=== PATIENT | female | born 1955 | race Caucasian/White ===

== ENCOUNTER → 2019-06-18 15:52 | Outpatient (BNVA) | payer MEDICARE, OTHER, SELFPAY | PROVIDERS: Family Provider Family Medicine; PCP Family Medicine; Visit Provider Family Medicine | DX: E11.9 Type 2 diabetes mellitus without complications (principal); Z79.4 Long term (current) use of insulin; I10 Essential (primary) hypertension; K21.9 Gastro-esophageal reflux disease without esophagitis | CPT/HCPCS: 80053; 80061; 83036; 85025 ==

== ENCOUNTER 2019-09-06 15:30 | Outpatient (CLI) | payer MEDICARE, OTHER, SELFPAY ==
--- NOTE | 2019-09-06 15:48 | XR_ITS ---
WS: [id number] SHOULDER LEFT TECHNIQUE: 3 views of the left shoulder CLINICAL INFORMATION: left shoulder pain. COMPARISON: None. FINDINGS: Normal acromioclavicular joint. Normal glenohumeral joint. Acromion is normal in appearance. Normal g lenoid. No evidence of acute fracture dislocation. Small loose body or rotator cuff calcification measuring 4.2 mm XR/XR shoulder LT min 2V* [id number] IMPRESSION: No acute left shoulder findings.
--- NOTE | 2019-09-06 15:48 | XR_ITS ---
WS: [id number] ELBOW LEFT TECHNIQUE: 3 views of the left elbow CLINICAL INFORMATION: left elbow pain COMPARISON: None. FINDINGS: Diffuse soft tissue edema. Normal anterior fat pad. Prominent diffuse edema overlying the olecranon s uspicious for olecranon bursitis. Recommend correlation for dorsal elbow pain. Radial head and neck a ppear normal. Moderate degenerative arthritis at the olecranon fossa. XR/XR elbow LT min 3V* [id number] IMPRESSION: 1. Diffuse soft tissue edema with more focal edema over the olecranon suspicio us for olecranon bursitis. Recommend correlation with dorsal elbow pain. 2. Degenerative arthritis of the left elbow. No acute fractures.
== END 2019-09-06 15:31 | disposition home or self-care (01) ==
LOC: RAD 15:36
PROVIDERS: Family Provider Family Medicine; PCP Family Medicine; Visit Provider Family Medicine
DX: M25.512 Pain in left shoulder (principal); R60.9 Edema, unspecified; M19.022 Primary osteoarthritis, left elbow
CPT/HCPCS: 73030; 73080

== ENCOUNTER 2019-10-01 10:47 | Outpatient (CLI) | payer MEDICARE, OTHER, SELFPAY ==
--- NOTE | 2019-10-01 11:08 | MR_ITS ---
WS: [id number] MRI LEFT SHOULDER HISTORY: pain COMPARISON: Shoulder radiograph 09/06/2019 TECHNIQUE: Multiplanar sequences of the shoulder joint are submitted. Moderate AC joint hypertrophy. There is mild encroachment upon the supraspinatus muscle and tendon. S mall osteophytes encroach upon the surface of the supraspinatus muscle anteriorly. Minimal curvature of the acromion. Small amount of subacromial and subdeltoid bursal fluid distention. Small loose body in the subdeltoid bursa. High-grade tear involving the distal subscapularis tendon at the insertion site. There is slight retr action of the tendon. There is additional increased signal consistent with tendinopathy in the distal tendon. There is a large amount of fluid in the subscapularis recess. No edema or atrophy of the mus mena. No definite tear involving the supraspinatus tendon. There is mild tendinopathy. There is cystic fluid extending along the distal infraspinatus tendon. Fluid extends from the distal infraspinatus tendon superiorly through the junction between the supraspinatus and infraspinatus tend ons. This is most likely an interstitial tear with communication to the bursa. Increase fluid in the biceps tendon sheath. Abnormal signal in the anterior and posterior labrum. Paralabral cyst adjacent to the posterior labru m. Surface irregularity along the glenoid with subchondral cystic changes. Mild narrowing of the ratna ohumeral joint. Small loose bodies in the fluid surrounding the subscapularis tendon and in the subsc apularis recess. MR/MR shoulder LT wo con* [id number] IMPRESSION: 1. Complete tear distal subscapularis tendon with mild retraction and tendinop athy. 2. Interstitial tear distal infraspinatus tendon with fluid extension into the subacromial/subdeltoid bursa. 3. Blunted, abnormal anterior and posterior labrum with a small para labral cy st associated with the posterior labrum. 4. Increase fluid around the biceps tendon sheath. 5. Small loose bodies in the joint effusion. 6. Mild AC joint hypertrophy with encroachment upon the supraspinatus muscle.
== END 2019-10-01 10:48 | disposition home or self-care (01) ==
LOC: RADWPI 10:56
PROVIDERS: Family Provider Family Medicine; PCP Family Medicine; Visit Provider Specialist
DX: S46.812A Strain of other muscles, fascia and tendons at shoulder and upper arm level, left arm, initial encounter (principal); X58.XXXA Exposure to other specified factors, initial encounter; M25.412 Effusion, left shoulder
CPT/HCPCS: 73221

== ENCOUNTER 2019-10-14 06:00 | Outpatient (RCR) | payer MEDICARE, OTHER, SELFPAY | END 2019-11-12 23:59 | disposition home or self-care (01) | LOC: SPT 06:00 | PROVIDERS: PCP Family Medicine; Referring Provider Specialist; Visit Provider Specialist | DX: M75.102 Unspecified rotator cuff tear or rupture of left shoulder, not specified as traumatic (principal) | CPT/HCPCS: 97110; 97162 ==

== ENCOUNTER → 2019-10-29 15:17 | Outpatient (BNVA) | payer MEDICARE, OTHER, SELFPAY | PROVIDERS: Family Provider Family Medicine; PCP Family Medicine; Visit Provider Family Medicine | DX: E11.9 Type 2 diabetes mellitus without complications (principal) | CPT/HCPCS: 80053; 83036 ==

== ENCOUNTER 2019-11-14 06:00 | Outpatient (RCR) | payer MEDICARE, OTHER, SELFPAY | END 2019-12-10 15:25 | disposition home or self-care (01) | LOC: SPT 06:00 | PROVIDERS: PCP Family Medicine; Referring Provider Specialist; Visit Provider Specialist | DX: M75.102 Unspecified rotator cuff tear or rupture of left shoulder, not specified as traumatic (principal) | CPT/HCPCS: 97110; G0283 ==

== ENCOUNTER 2019-11-29 01:01 | Emergency (ER) | payer MEDICARE, OTHER, SELFPAY ==
--- NOTE | 2019-11-29 01:22 | ECG_ITS ---
[facility] Test Date: 2019-11-29 Pat Name: Ángela Forrester Department: Room: Gender: Female Clinical Specialist Medical Device: Terrance : 1955 Requested By: Robert Moy Order Number: [id number] Cathryn MD: Antonio Meza M.D. Measurements Intervals [place] Rate: 73 P: 60 CA: 179 QRS: -14 QRSD: 89 T: 48 QT: 423 QTc: 467 Interpretive Statements SINUS RHYTHM LOW QRS VOLTAGE IN PRECORDIAL LEADS [QRS DEFLECTION < 1.0 mV IN CHEST LEADS] Compared to ECG 03/14/2019 21:09:38 Left-axis deviation no longer present T-wave abnormality no longer present Electronically Signed On 11-29-2019 23:32:39 CDT by Antonio Meza M.D. [email or web address]
[2019-11-29 01:30] VITALS: PULSE 76; RESP 20; TEMP 36.4; O2SAT 99
--- NOTE | 2019-11-29 02:04 | W.ED.NAVMDI ---
HPI - Nausea/Vomiting/Diarrhea General: Chief complaint: Nausea/Vomiting/Diarrhea Stated complaint: n/v/d Time Seen by Provider: 11/29/19 02:03 Source: patient Mode of arrival: ambulatory Limitations: no limitations History of Present Illness: HPI Narrative: Tessa is a nice 64-year-old female who comes in complaining of intractable nausea vomiting and diarrhea. Patient states her symptoms began earlier today and she is vomited numerous times. She denies any abdominal pain except for when retching and vomiting. She denies any chest pain or shortness of breath and she denies any fevers or chills. She has no cough or sore throat. Patient states that her symptoms are getting worse as the day goes on but denies any other complaints concerns Associated nausea: No Associated symtoms: Reports chest pain; Denies change in vision, diaphoresis, dizziness, dysuria, fatigue, headache(s), malaise, nausea, palpitations or syncope Review of Systems Const: Denies: fever(s), chills, body aches, fatigue, malaise or diaphoresis Eyes: Denies: change in vision, blurry vision, blind spots, photophobia, eye discharge or eye redness ENMT: Denies: throat pain, odynophagia, hoarseness, swelling of lips/tongue, oral sores, ear or mastoid pain, ear discharge, change in hearing or nasal discharge Card: Reports: chest pain; Denies: palpitations, irregular heart rhythm, edema, lightheadedness, syncope, pre-syncope, dyspnea on exertion or orthopnea Resp: Reports: dyspnea; Denies: productive cough, non-productive cough, wheezing, hemoptysis or chest congestion GI: Denies: abdominal pain, nausea, vomiting, hematemesis, coffee ground emesis, heartburn, diarrhea, constipation, GI cramping, hematochezia or melena : Denies: flank pain, dysuria, urinary frequency, urinary urgency or hematuria Musc: Denies: neck pain, back pain, extremity pain, extremity swelling, joint pain, joint swelling, joint redness, joint warmth or joint stiffness Skin/Breast: Denies: rash, pruritus, erythema, skin tenderness or jaundice Neuro: Denies: headache(s), numbness in extremities, weakness in extremities, sensory changes, lack of coordination, difficulty walking, dizziness, vertigo, confusion, Slurred speech present or seizure-like activity Deep/Lymph: Denies: easy bruising, easy bleeding, petechiae, purpura or enlarged lymph nodes All/Imm: Denies: urticaria, throat swelling, tongue swelling, facial swelling or acute wheezing PFSH ED PFSH: Medical History Chest pain Depression Essential hypertension GERD (gastroesophageal reflux disease) Hyperlipidemia Type 2 diabetes mellitus, without long-term current use of insulin Surgical History H/O: hysterectomy S/P appendectomy S/p bilateral carpal tunnel release S/P breast augmentation S/P cholecystectomy S/P discectomy Status post total knee replacement, left Family History Other CAD (coronary artery disease) Cancer Diabetes Stroke Social History Smoking and tobacco status: never smoked Alcohol intake: current Alcohol intake frequency: holidays/special occasions only Lives independently: No Household members: spouse Marital status: Physical Exam Const: COMMON NORMALS: no acute distress, patient oriented x3, no limitations, healthy appearing and well nourished GENERAL APPEARANCE: cooperative, well kempt and well developed HENMT: COMMON NORMALS: normocephalic, atraumatic, external ears normal, EAC's normal and Normal external nose present HEAD & SCALP: normal to inspection, normocephalic and atraumatic FACE & SINUS: normal facial exam and face symmetric NOSE: Normal external nose present and Normal nares present EXTERNAL EAR: Yes external ears normal EXTERNAL AUDITORY CANAL: EAC's normal MOUTH: Normal oral and palatal mucosa present, lip normal and tongue normal Eye: COMMON NORMALS: Equal, round and reactive pupils present and conjunctivae normal GENERAL EYE: appearance normal, both eyes and all related structures ALIGNMENT: Yes alignment normal PERIORBITAL: periorbital findings normal EYELID: eyelids normal CONJUNCTIVA: Yes conjunctivae normal SCLERA: sclerae normal PUPIL: Yes Equal, round and reactive pupils present Neck/C-Spine: COMMON NORMALS: full ROM, no lymphadenopathy, supple, no meningeal signs and no JVD GENERAL: Yes normal visual inspection and Yes trachea midline Chest: COMMONS NORMALS: normal inspection of the chest and normal palpation of entire chest wall Resp: COMMON NORMALS: normal respiratory effort, No retractions and No use of accessory muscles EFFORT & INSPECTION: Yes able to speak in complete sentences and Yes symmetric chest movement AUSCULTATION: no crackles, no rales, no rhonchi and no wheezes Cardio: COMMON NORMALS: no JVD, regular rate, regular rhythm, S1 normal heart sound present and S2 normal heart sound present RATE: regular rate RHYTHM: regular rhythm HEART SOUNDS: S1 normal heart sound present, S2 normal heart sound present, no click, no gallops, no murmurs, no rubs and abnormal split S2 GI: COMMON NORMALS: Soft to palpation and No hepatosplenomegaly present PALPATION: Yes Soft to palpation, No Tenderness to palpation present (GI), No Guarding due to palpation present (GI), No Rigid due to palpation, Yes No hepatosplenomegaly present, No Hernia present, No Palpable mass present and No Pulsatile mass present : COMMON NORMALS: Yes no CVA tenderness BLADDER/KIDNEY EXAM: Yes no CVA tenderness EXTERNAL FEMALE EXAM: No Hernia present Back/Pelvis: COMMON NORMALS: no CVA tenderness, thoracic and lumbar spine normal to inspection, no thoracic nor lumbar tenderness and thoraco-lumbar ROM normal Extremity: COMMON NORMALS: normal to inspection, full ROM, capillary refill normal, no joint enlargement, no clubbing, cyanosis or edema and no calf tenderness Neuro: COMMON NORMALS: patient oriented x3, CN's II-XII intact bilaterally, moves all extremities, no focal motor deficits and no sensory deficits noted MENINGEAL SIGNS: Yes no meningeal signs SPEECH: speech normal Psych: COMMON NORMALS: mental status grossly normal, Normal thought process present, cooperative, normal affect, speech normal and activity/motor behavior normal APPEARANCE: Yes well kempt SPEECH: Yes normal speech THOUGHT PROCESS: Normal thought process present Skin: COMMON NORMALS: no rashes or lesions noted, turgor normal, no jaundice, no petechiae and no mottling GENERAL SKIN EXAM: no rashes or lesions noted and turgor normal Course Vital Signs: Vital signs: Vital Signs Temperature 97.6 F 11/29/19 01:30 Pulse Rate 72 11/29/19 03:58 Respiratory Rate 20 H 11/29/19 03:58 Blood Pressure 163/93 11/29/19 03:58 Pulse Oximetry 99 11/29/19 03:58 MDM - Nausea/Vomiting/Diarrhea MDM Narrative: Medical decision making narrative: Patient is feeling better and is ready to go home. She still has no abdominal pain and her nausea has resolved. She would like a dose of something myalgias before she goes to prevent any nausea from returning. She has no fevers or chills, no headache or any other complaints. Good discharge her home per her request she does agree to return should her symptoms change or worsen. Lab Data: Attestation: I reviewed the patient's lab results. Labs: Lab Results 11/29/19 11/29/19 11/29/19 Range/Units 02:37 02:37 02:37 WBC 11.4 H (4.0-10.0) 10^3/ uL RBC 4.34 (4.1-5.3) 10^6/u L Hgb 13.3 (11.5-15.3) g/dL Hct 40.6 (37.0-47.0) % MCV 93.5 (81-99) fL MCH 30.6 (28.0-34.0) pg MCHC 32.8 (30.0-36.0) g/dL RDW 13.8 (12.1-15.1) % Plt Count 362 (130-400) 10^3/c mm MPV 9.6 (7.4-10.4) fL Neut % (Auto) 77.2 % Lymph % (Auto) 16.3 % Dickenson % (Auto) 4.9 % Eos % (Auto) 0.7 % Baso % (Auto) 0.5 % Neut # (Auto) 8.75 H (1.8-7.7) 10^3/u L Lymph # (Auto) 1.9 (0.8-4.8) 10^3/u L Dickenson # (Auto) 0.6 (0.2-0.9) 10^3/u L Eos # (Auto) 0.1 (0.0-0.8) 10^3/u L Baso # (Auto) 0.1 (0.0-0.1) 10^3/u L Nucleated RBC % (a uto) 0 % Nucleated RBCs # 0.0 /100WBC Sodium 137 (136-145) mmol/L Potassium 3.9 (3.5-5.1) mmol/L Chloride 96 L (98-107) mmol/L Carbon Dioxide 26 (22-29) mmol/L Anion Gap 18.9 (5-19) BUN 15 (8-23) mg/dL Creatinine 0.8 (0.5-0.9) mg/dL GFR Calculation 71.8 L (90-130) mL/min Glucose 178 H (65-115) mg/dL Calculated Osmolal ity 285 (285-295) mOsm/k g Calcium 9.8 (8.5-10.5) mg/dL Total Bilirubin 0.4 (0.15-1.2) mg/dL AST 15 (0-32) U/L ALT 25 (0-33) U/L Alkaline Phosphata se 87 (35-105) IU/L Troponin T Baselin e 6 (0-10) ng/L Troponin T 120 Min tolowa dee-ni' (0-10) ng/L Delta Troponin T (0-10) ABS# Total Protein 7.5 (6.6-8.7) g/dL Albumin 4.6 (3.5-5.2) g/dL Globulin 2.9 (1.3-4.6) g/dL Lipase 19 (13-60) U/L /17/20 Range/Units 03:45 WBC (4.0-10.0) 10^3/ uL RBC (4.1-5.3) 10^6/u L Hgb (11.5-15.3) g/dL Hct (37.0-47.0) % MCV (81-99) fL MCH (28.0-34.0) pg MCHC (30.0-36.0) g/dL RDW (12.1-15.1) % Plt Count (130-400) 10^3/c mm MPV (7.4-10.4) fL Neut % (Auto) % Lymph % (Auto) % Dickenson % (Auto) % Eos % (Auto) % Baso % (Auto) % Neut # (Auto) (1.8-7.7) 10^3/u L Lymph # (Auto) (0.8-4.8) 10^3/u L Dickenson # (Auto) (0.2-0.9) 10^3/u L Eos # (Auto) (0.0-0.8) 10^3/u L Baso # (Auto) (0.0-0.1) 10^3/u L Nucleated RBC % (a uto) % Nucleated RBCs # /100WBC Sodium (136-145) mmol/L Potassium (3.5-5.1) mmol/L Chloride (98-107) mmol/L Carbon Dioxide (22-29) mmol/L Anion Gap (5-19) BUN (8-23) mg/dL Creatinine (0.5-0.9) mg/dL GFR Calculation (90-130) mL/min Glucose (65-115) mg/dL Calculated Osmolal ity (285-295) mOsm/k g Calcium (8.5-10.5) mg/dL Total Bilirubin (0.15-1.2) mg/dL AST (0-32) U/L ALT (0-33) U/L Alkaline Phosphata se (35-105) IU/L Troponin T Baselin e (0-10) ng/L Troponin T 120 Min tolowa dee-ni' 6.00 (0-10) ng/L Delta Troponin T 0 (0-10) ABS# Total Protein (6.6-8.7) g/dL Albumin (3.5-5.2) g/dL Globulin (1.3-4.6) g/dL Lipase (13-60) U/L EKG Data^: EKG 1: Attestation: I personally reviewed and interpreted this EKG as follows: EKG interpretation date: 11/29/19 EKG interpretation time: 03:47 Interpretation: Normal sinus rhythm at 73 beats a minute, no acute ST-T wave changes. Discharge Plan Discharge Patient Disposition: Home, Self-Care Clinical Impression: Nausea and vomiting Qualifiers: Vomiting type: unspecified Vomiting Intractability: non-intractable Qualified Code(s): R11.2 - Nausea with vomiting, unspecified Condition: Stable Prescriptions: New Zofran 4 mg tablet 4 mg PO Q6H PRN (Reason: nausea and vomiting) Qty: 20 RF: 0 No Action glyburide 5 mg tablet 5 mg PO DAILY Qty: 90 RF: 0 pantoprazole [Protonix] 40 mg tablet,delayed release (DR/EC) 40 mg PO DAILY Qty: 90 RF: 1 nitroglycerin [Nitrostat] 0.4 mg tablet, sublingual 0.4 mg SUBLINGUAL Q5M PRNRF: 0 dicyclomine 10 mg capsule 10 mg PO .Q6 HOURS PRN (Reason: CRAMPING) RF: 0 levocetirizine [Xyzal] 5 mg tablet 5 mg PO QDAY RF: 0 losartan 50 mg tablet 50 mg PO BID Qty: 60 RF: 1 folic acid 1 mg tablet 1 mg PO ONCE Qty: 90 RF: 0 estradiol 2 mg tablet 2 mg PO ONCE Qty: 30 RF: 0 venlafaxine [Effexor XR] 75 mg capsule,extended release 24hr 75 mg PO QAM Qty: 90 RF: 0 venlafaxine [Effexor XR] 150 mg capsule,extended release 24hr 150 mg PO QAM Qty: 90 RF: 0 amlodipine 5 mg tablet 5 mg PO DAILY Qty: 90 RF: 0 atorvastatin 40 mg tablet 40 mg PO ONCE Qty: 90 RF: 0 chlorthalidone 25 mg tablet 12.5 mg PO QDAY Qty: 45 RF: 0 Discharge Orders: Discharge Order (Routine); Ordered 11/29/19 Ordered By: Joan Maguire Referrals: Jelly Patel DO [Primary Care Provider] - 1-3 days Discharge Diet: Advance as tolerated and Clear Liquid Discharge Activity: Increase activity as tolerated Patient Instructions: Acute Nausea and Vomiting (ED), Abdominal Pain (ED) Activity Restrictions/Additional Instructions: Please return to the ER immediately for any of the signs or symptoms listed on your discharge instruction sheets, worsening/changing of your symptoms, you are not getting better as quickly as expected, or for ANY other cause or concerns. Coding Level of Care Code ED Log Buncher for Chg Fwd Exam Comprehensive
[2019-11-29] MEDS: sodium chloride 0.9% 1,000 ML 999 ML IV (02:46)
[2019-11-29] MEDS: ondansetron 2 mg/ML SDV 2 mL 8 MG IVP (02:46)
[2019-11-29 03:04] LABS: Basophils # 0.1 10^3/uL (0.0-0.1); Basophils % 0.5 %; Eosinophils # 0.1 10^3/uL (0.0-0.8); Eosinophils % 0.7 %; Hematocrit 40.6 % (37.0-47.0); Hemoglobin 13.3 g/dL (11.5-15.3); Lymphocytes # 1.9 10^3/uL (0.8-4.8); Lymphocytes % 16.3 %; Mean Corpuscular HGB Conc 32.8 g/dL (30.0-36.0); Mean Corpuscular Hemoglobin 30.6 pg (28.0-34.0); Mean Corpuscular Volume 93.5 fL (81-99); Mean Platelet Volume 9.6 fL (7.4-10.4); Monocytes # 0.6 10^3/uL (0.2-0.9); Monocytes % 4.9 %; Neutrophils # 8.75 10^3/uL (1.8-7.7); Neutrophils % 77.2 %; Nucleated Red Blood Cells % 0 %; Platelet Count 362 10^3/cmm (130-400); Red Blood Count 4.34 10^6/uL (4.1-5.3); Red Cell Distribution Width 13.8 % (12.1-15.1); White Blood Count 11.4 10^3/uL (4.0-10.0)
[2019-11-29 03:18] LABS: Alanine Aminotransferase 25 U/L (0-33); Albumin Level 4.6 g/dL (3.5-5.2); Alkaline Phosphatase 87 IU/L (35-105); Anion Gap 18.9 (5-19); Aspartate Amino Transferase 15 U/L (0-32); Blood Urea Nitrogen 15 mg/dL (8-23); Calcium 9.8 mg/dL (8.5-10.5); Carbon Dioxide 26 mmol/L (22-29); Chloride 96 mmol/L (98-107); Globulin 2.9 g/dL (1.3-4.6); Glomerular Filtration Rate 71.8 mL/min (90-130); Glucose 178 mg/dL (65-115); Lipase 19 U/L (13-60); Osmolality Calculated 285 mOsm/kg (285-295); Potassium 3.9 mmol/L (3.5-5.1); Sodium 137 mmol/L (136-145); Total Bilirubin 0.4 mg/dL (0.15-1.2); Total Protein 7.5 g/dL (6.6-8.7)
[2019-11-29 03:20] LABS: Troponin(5th) Baseline 6 ng/L (0-10)
[2019-11-29 03:58] VITALS: BP 163/93; PULSE 72; RESP 20; O2SAT 99
[2019-11-29 04:06] LABS: Troponin 5 2HR Delta 0 ABS# (0-10)
[2019-11-29 04:51] VITALS: BP 162/97; O2SAT 95
[2019-11-29] MEDS: metoclopramide 5 mg/mL SDV 2 mL 10 MG IVP (04:55)
[2019-11-29 05:10] LABS: Add Urine Microscopic? YES; Bilirubin Urine Neg (NEGATIVE); Blood Urine Neg (Negative); Glucose Urine UA Norm (Normal); Ketones Urine 1+ (Negative); Leukocyte Esterase Urine Negative (Negative); Nitrate Urine Negative (Negative); Protein Urine Neg (Negative); Sulfosalicylic Acid Urine Negative (Negative); Urine Appearance Cloudy (CLEAR); Urine Color Yellow (Yellow); Urobilinogen Urine Norm (Negative); pH Urine 8 (5-7)
[2019-11-29 05:11] LABS: Amorphous Sediment Urine 1+; Bacteria Urine 1+; Squamous Epithelial Cell Urine RARE (0-5)
== END 2019-11-29 05:13 | disposition home or self-care (01) ==
PROVIDERS: Nurse Practitioner Family; Emergency Provider Emergency Medicine; PCP Family Medicine
DX: R11.2 Nausea with vomiting, unspecified (principal); I10 Essential (primary) hypertension; E78.5 Hyperlipidemia, unspecified; E11.9 Type 2 diabetes mellitus without complications
CPT/HCPCS: 12345; 80053; 81001; 81003; 83690; 84484; 85025; 93005; 96361; 96374; 96375; 99283; J2405; J2765; J7030

== ENCOUNTER 2020-01-09 09:41 | Emergency (ER) | payer MEDICARE, OTHER, SELFPAY ==
[2020-01-09 09:50] VITALS: PULSE 100; RESP 20; TEMP 36.7; O2SAT 95; BMI 37.5
--- NOTE | 2020-01-09 10:03 | CT_ITS ---
WS: [id number] CT ABDOMEN PELVIS TECHNIQUE: Contrast-enhanced CT of the abdomen and pelvis with coronal and sagittal reformatted image s. CLINICAL INFORMATION: left sided abd pain COMPARISON: None. DLP: 1561.[address] scans at [facility] use at least one of these dose optimization techniques: automat ed exposure control; mA and/or kV adjustment per patient size (includes targeted exams where dose is matched to clinical indication); or iterative reconstruction. FINDINGS: Mild diffuse fatty infiltration of the liver. Cholecystectomy clips. Small cyst dome of the liver candi suring 12 mm. 2 tiny partially visualized noncalcified pulmonary nodules right middle lobe measuring 5 mm. Normal GE junction. Spleen is normal. Mild fatty atrophy of the pancreas. Adrenal glands are no rmal. Mild bilateral renal cortical atrophy. Normal renal parenchymal enhancement. No hydronephrosis. Sigmoid diverticulosis. Normal caliber abdominal aorta. No evidence of small or large bowel obstructi on. Endplate degenerative changes at L2-3. Postoperative changes both breasts. Mild diffuse transmural edema involving the descending left colon consistent with acute diverticuliti s or short segment colitis. A few diverticuli in this location. Mild thickening of the sigmoid colon. No periaortic lymphadenopathy. No inguinal lymphadenopathy. CT/CT abdomen pelvis w con* [id number] IMPRESSION: 1. Mild diffuse thickening involving the descending left colon in the left low er quadrant with inflammatory stranding and edema consistent with acute diverti culitis or short segment colitis. Mild thickening of the sigmoid colon. 2. No evidence of drainable abscess or fluid collection. 3. Prior cholecystectomy. 4. Mild diffuse fatty infiltration of the liver. 5. 2 tiny partially visualized noncalcified pulmonary nodules right middle lob e measuring 5 mm. This can be followed up with chest CT Notified Ana Lilia Mauro MD at 01/09/2020 11:17 AM.
[2020-01-09 10:09] VITALS: O2SAT 94
--- NOTE | 2020-01-09 10:19 | PC.NURSE ---
pt to CT by stretcher with tech
[2020-01-09 10:23] LABS: Basophils # 0.1 10^3/uL (0.0-0.1); Basophils % 0.6 %; Eosinophils # 0.3 10^3/uL (0.0-0.8); Eosinophils % 2.6 %; Hematocrit 37.5 % (37.0-47.0); Hemoglobin 12.3 g/dL (11.5-15.3); Lymphocytes # 1.7 10^3/uL (0.8-4.8); Lymphocytes % 14.4 %; Mean Corpuscular HGB Conc 32.8 g/dL (30.0-36.0); Mean Corpuscular Hemoglobin 30.5 pg (28.0-34.0); Mean Corpuscular Volume 93.1 fL (81-99); Mean Platelet Volume 9.4 fL (7.4-10.4); Monocytes # 0.6 10^3/uL (0.2-0.9); Monocytes % 5.4 %; Neutrophils # 9.13 10^3/uL (1.8-7.7); Neutrophils % 76.6 %; Nucleated Red Blood Cells % 0 %; Platelet Count 310 10^3/cmm (130-400); Red Blood Count 4.03 10^6/uL (4.1-5.3); Red Cell Distribution Width 13.4 % (12.1-15.1); White Blood Count 11.9 10^3/uL (4.0-10.0)
[2020-01-09] MEDS: iohexol 300 mg/mL 100 mL Btl IV (10:34)
[2020-01-09 10:40] LABS: Alanine Aminotransferase 17 U/L (0-33); Albumin Level 4.1 g/dL (3.5-5.2); Alkaline Phosphatase 87 IU/L (35-105); Anion Gap 13.3 (5-19); Aspartate Amino Transferase 11 U/L (0-32); Blood Urea Nitrogen 13 mg/dL (8-23); Calcium 8.5 mg/dL (8.5-10.5); Carbon Dioxide 28 mmol/L (22-29); Chloride 98 mmol/L (98-107); Globulin 3.1 g/dL (1.3-4.6); Glomerular Filtration Rate 71.8 mL/min (90-130); Glucose 203 mg/dL (65-115); Lipase 21 U/L (13-60); Osmolality Calculated 284 mOsm/kg (285-295); Potassium 3.3 mmol/L (3.5-5.1); Sodium 136 mmol/L (136-145); Total Bilirubin 0.5 mg/dL (0.15-1.2); Total Protein 7.2 g/dL (6.6-8.7)
[2020-01-09 10:41] LABS: Lactic Sepsis W/Reflex 2.1 mmol/L (0.5-2.2)
[2020-01-09] MEDS: ondansetron 2 mg/ML SDV 2 mL 4 MG IVP (10:42)
[2020-01-09] MEDS: morphine 4 mg/mL SDV 1 mL IVP (10:42)
[2020-01-09 10:45] VITALS: BP 141/91; PULSE 86; O2SAT 97
[2020-01-09 11:11] LABS: Add Urine Microscopic? NO
--- NOTE | 2020-01-09 11:15 | W.ED.ABDPA2 ---
HPI - Abdominal Pain General: Chief Complaint: Abdominal Pain Stated Complaint: L SIDE PAIN Time Seen by Provider: 01/09/20 09:58 History of Present Illness: HPI narrative: This patient is a 64-year-old female presenting with left-sided abdominal pain. This pain started yesterday and has been progressing through the night. She said it started in the lower part of the left abdomen and seem to have migrated up. She is not having nausea or vomiting. She did not eat breakfast this morning. She has had normal bowel movements in the last few days. No urinary symptoms. No fevers or chills. She has never had anything like this before. She has had multiple surgeries including her gallbladder, appendix, hysterectomy. MD elicited complaint: abdominal pain Pertinent past history: none Pain Consistency: constant Location: LUQ and LLQ Migration to: LUQ Associated Symptoms: Denies chills, fever(s), nausea and vomiting Review of Systems General: Reports: 10 or more systems reviewed and unremarkable except in HPI and below Const: Denies: fever(s), chills, fatigue or malaise Eyes: Denies: change in vision ENMT: Denies: odynophagia Card: Denies: chest pain or swelling of feet/ankles Resp: Denies: dyspnea, productive cough or non-productive cough GI: Reports: abdominal pain; Denies: nausea or vomiting : Denies: flank pain or difficulty voiding Musc: Denies: neck pain or back pain Skin/Breast: Denies: rash Neuro: Denies: headache(s), numbness in extremities or weakness in extremities Deep/Lymph: Denies: easy bruising or easy bleeding PFSH ED PFSH: Medical History Chest pain Depression Essential hypertension GERD (gastroesophageal reflux disease) Hyperlipidemia Type 2 diabetes mellitus, without long-term current use of insulin Surgical History H/O: hysterectomy S/P appendectomy S/p bilateral carpal tunnel release S/P breast augmentation S/P cholecystectomy S/P discectomy Status post total knee replacement, left Family History Other CAD (coronary artery disease) Cancer Diabetes Stroke Social History Smoking and tobacco status: never smoked Alcohol intake: current Alcohol intake frequency: holidays/special occasions only Lives independently: No Household members: spouse Marital status: Physical Exam Const: COMMON NORMALS: no acute distress, patient oriented x3, no limitations and alert GENERAL APPEARANCE: cooperative and comfortable HENMT: HEAD & SCALP: normal to inspection FACE & SINUS: normal facial exam Eye: GENERAL EYE: appearance normal, both eyes and all related structures Neck/C-Spine: COMMON NORMALS: supple, no meningeal signs and no JVD Chest: COMMONS NORMALS: normal inspection of the chest Resp: COMMON NORMALS: normal respiratory effort, No use of accessory muscles and clear to auscultation bilaterally AUSCULTATION: clear to auscultation bilaterally Cardio: COMMON NORMALS: no JVD, regular rate, regular rhythm and No murmurs present (Cardio) RATE: regular rate RHYTHM: regular rhythm GI: COMMON NORMALS: Normal to inspection, nondistended, normoactive bowel sounds present and Soft to palpation INSPECTION: Yes normal to inspection AUSCULTATION: Yes normoactive bowel sounds PALPATION: Yes Soft to palpation and Yes Tenderness to palpation present (GI) Details: LLQ and LUQ Back/Pelvis: COMMON NORMALS: thoracic and lumbar spine normal to inspection Extremity: COMMON NORMALS: normal to inspection Neuro: COMMON NORMALS: patient oriented x3, moves all extremities, no focal motor deficits and no sensory deficits noted SENSORIUM/ORIENTATION: Yes alert MENINGEAL SIGNS: Yes no meningeal signs Psych: COMMON NORMALS: mental status grossly normal, cooperative and normal affect Skin: COMMON NORMALS: no rashes or lesions noted and turgor normal GENERAL SKIN EXAM: no rashes or lesions noted and turgor normal Course ED course: Patient was given some pain medication. She improved and is relatively comfortable in the department. CT was done and shows left sigmoid and descending colon diverticulitis versus colitis. Clinically diverticulitis seems more likely. There is no abscess or perforation. Will treat with some pain medication and antibiotics as an outpatient. She understands the need to return if worsening in any way. Vital Signs: Vital signs: Vital Signs Temperature 98.0 F 01/09/20 09:50 Pulse Rate 83 01/09/20 11:45 Respiratory Rate 20 H 01/09/20 09:50 Blood Pressure 119/76 01/09/20 11:45 Pulse Oximetry 93 01/09/20 11:45 MDM - Abdominal Pain MDM Narrative: Medical decision making narrative: Left lower quadrant and left upper quadrant pain in a diabetic 64-year-old. Likely diverticulitis. CT do confirm diagnosis and rule out abscess or perforation. Could also be of renal etiology, or musculoskeletal. Lab Data: Labs: Lab Results 01/09/20 01/09/20 01/09/20 Range/Units 10:16 10:16 10:16 WBC 11.9 H (4.0-10.0) 10^3/ uL RBC 4.03 L (4.1-5.3) 10^6/u L Hgb 12.3 (11.5-15.3) g/dL Hct 37.5 (37.0-47.0) % MCV 93.1 (81-99) fL MCH 30.5 (28.0-34.0) pg MCHC 32.8 (30.0-36.0) g/dL RDW 13.4 (12.1-15.1) % Plt Count 310 (130-400) 10^3/c mm MPV 9.4 (7.4-10.4) fL Neut % (Auto) 76.6 % Lymph % (Auto) 14.4 % [place] % (Auto) 5.4 % Eos % (Auto) 2.6 % Baso % (Auto) 0.6 % Neut # (Auto) 9.13 H (1.8-7.7) 10^3/u L Lymph # (Auto) 1.7 (0.8-4.8) 10^3/u L [place] # (Auto) 0.6 (0.2-0.9) 10^3/u L Eos # (Auto) 0.3 (0.0-0.8) 10^3/u L Baso # (Auto) 0.1 (0.0-0.1) 10^3/u L Nucleated RBC % (a uto) 0 % Nucleated RBCs # 0.0 /100WBC Sodium 136 (136-145) mmol/L Potassium 3.3 L (3.5-5.1) mmol/L Chloride 98 (98-107) mmol/L Carbon Dioxide 28 (22-29) mmol/L Anion Gap 13.3 (5-19) BUN 13 (8-23) mg/dL Creatinine 0.8 (0.5-0.9) mg/dL GFR Calculation 71.8 L (90-130) mL/min Glucose 203 H (65-115) mg/dL Calculated Osmolal ity 284 L (285-295) mOsm/k g Lactic Acid 2.1 (0.5-2.2) mmol/L Calcium 8.5 (8.5-10.5) mg/dL Total Bilirubin 0.5 (0.15-1.2) mg/dL AST 11 (0-32) U/L ALT 17 (0-33) U/L Alkaline Phosphata se 87 (35-105) IU/L Total Protein 7.2 (6.6-8.7) g/dL Albumin 4.1 (3.5-5.2) g/dL Globulin 3.1 (1.3-4.6) g/dL Lipase 21 (13-60) U/L Urine Color (Yellow) Urine Appearance (CLEAR) Urine pH (5-7) Ur Specific Gravit y (1.005-1.030) Urine Protein (Negative) Urine Glucose (UA) (Normal) Urine Ketones (Negative) Urine Blood (Negative) Urine Nitrate (Negative) Urine Bilirubin (NEGATIVE) Urine Urobilinogen (Negative) mg/dL Ur Leukocyte Catherine ase (Negative) 01/09/20 Range/Units 10:52 WBC (4.0-10.0) 10^3/ uL RBC (4.1-5.3) 10^6/u L Hgb (11.5-15.3) g/dL Hct (37.0-47.0) % MCV (81-99) fL MCH (28.0-34.0) pg MCHC (30.0-36.0) g/dL RDW (12.1-15.1) % Plt Count (130-400) 10^3/c mm MPV (7.4-10.4) fL Neut % (Auto) % Lymph % (Auto) % [place] % (Auto) % Eos % (Auto) % Baso % (Auto) % Neut # (Auto) (1.8-7.7) 10^3/u L Lymph # (Auto) (0.8-4.8) 10^3/u L [place] # (Auto) (0.2-0.9) 10^3/u L Eos # (Auto) (0.0-0.8) 10^3/u L Baso # (Auto) (0.0-0.1) 10^3/u L Nucleated RBC % (a uto) % Nucleated RBCs # /100WBC Sodium (136-145) mmol/L Potassium (3.5-5.1) mmol/L Chloride (98-107) mmol/L Carbon Dioxide (22-29) mmol/L Anion Gap (5-19) BUN (8-23) mg/dL Creatinine (0.5-0.9) mg/dL GFR Calculation (90-130) mL/min Glucose (65-115) mg/dL Calculated Osmolal ity (285-295) mOsm/k g Lactic Acid (0.5-2.2) mmol/L Calcium (8.5-10.5) mg/dL Total Bilirubin (0.15-1.2) mg/dL AST (0-32) U/L ALT (0-33) U/L Alkaline Phosphata se (35-105) IU/L Total Protein (6.6-8.7) g/dL Albumin (3.5-5.2) g/dL Globulin (1.3-4.6) g/dL Lipase (13-60) U/L Urine Color Yellow (Yellow) Urine Appearance Clear (CLEAR) Urine pH 7 (5-7) Ur Specific Gravit y 1.005 (1.005-1.030) Urine Protein Neg (Negative) Urine Glucose (UA) Norm (Normal) Urine Ketones Negative (Negative) Urine Blood Neg (Negative) Urine Nitrate Negative (Negative) Urine Bilirubin Neg (NEGATIVE) Urine Urobilinogen Norm (Negative) mg/dL Ur Leukocyte Catherine ase Negative (Negative) Discharge Plan Discharge Patient Disposition: Home Clinical Impression: Diverticulitis Condition: Stable Prescriptions: New amoxicillin-pot clavulanate 875-125 mg tablet 1 tab PO BID Qty: 20 RF: 0 hydrocodone-acetaminophen 5-325 mg tablet 1 tab PO Q6H PRN (Reason: pain) Qty: 20 RF: 0 No Action pantoprazole [Protonix] 40 mg tablet,delayed release (DR/EC) 40 mg PO DAILY Qty: 90 RF: 1 nitroglycerin [Nitrostat] 0.4 mg tablet, sublingual 0.4 mg SUBLINGUAL Q5M PRN (Reason: Chest Pain) RF: 0 dicyclomine 10 mg capsule 10 mg PO Q6H PRN (Reason: CRAMPING) RF: 0 levocetirizine [Xyzal] 5 mg tablet 5 mg PO DAILY RF: 0 losartan 50 mg tablet 50 mg PO BID Qty: 60 RF: 1 venlafaxine [Effexor XR] 75 mg capsule,extended release 24hr 75 mg PO QAM Qty: 90 RF: 0 amlodipine 5 mg tablet 5 mg PO DAILY Qty: 90 RF: 0 venlafaxine [Effexor XR] 150 mg capsule,extended release 24hr 150 mg PO QAM Qty: 90 RF: 0 atorvastatin 40 mg tablet 40 mg PO DAILY RF: 0 chlorthalidone 25 mg tablet 12.5 mg PO DAILY RF: 0 estradiol 2 mg tablet 2 mg PO DAILY RF: 0 folic acid 1 mg tablet 1 mg PO DAILY RF: 0 Discharge Orders: Discharge Order (Routine); Ordered 01/09/20 Ordered By: Ana Lilia Mauro Referrals: Jelly Patel DO [Primary Care Provider] - Discharge Diet: Usual diet Discharge Activity: Resume usual activity Patient Instructions: Diverticulitis (ED) Activity Restrictions/Additional Instructions: Return to the emergency department if increased pain, fever, vomiting. Eat a light diet until you are feeling better. Follow-up with your doctor in about 2 weeks to make sure that symptoms are completely gone. Expect improvement in your symptoms within 2 to 3 days. Discharge Date/Time: 01/09/20 11:45 Coding Level of Care Code ED Absence Management Consultant for Kseni[employer] Fwd Exam Comprehensive
[2020-01-09 11:16] LABS: Urine Appearance Clear (CLEAR); Urine Color Yellow (Yellow)
[2020-01-09 11:17] LABS: Bilirubin Urine Neg (NEGATIVE); Blood Urine Neg (Negative); Glucose Urine UA Norm (Normal); Ketones Urine Negative (Negative); Leukocyte Esterase Urine Negative (Negative); Nitrate Urine Negative (Negative); Protein Urine Neg (Negative); Specific Gravity, Urine 1.005 (1.005-1.030); Urobilinogen Urine Norm (Negative); pH Urine 7 (5-7)
[2020-01-09 11:45] VITALS: BP 119/76; PULSE 83; O2SAT 93
[2020-01-09 12:08] LABS: Reflex Lactate Order REFLEX LACTIC ORDERD
== END 2020-01-09 11:45 | disposition home or self-care (01) ==
PROVIDERS: Emergency Provider Emergency Medicine; PCP Family Medicine
DX: K57.92 Diverticulitis of intestine, part unspecified, without perforation or abscess without bleeding (principal); I10 Essential (primary) hypertension; E78.5 Hyperlipidemia, unspecified; E11.9 Type 2 diabetes mellitus without complications
CPT/HCPCS: 12345; 36415; 74177; 80053; 81003; 83605; 83690; 85025; 96374; 96375; 99283; J2270; J2405; Q9967

== ENCOUNTER → 2020-01-27 12:36 | Outpatient (BNVA) | payer MEDICARE, OTHER, SELFPAY | PROVIDERS: PCP Family Medicine; Visit Provider Family Medicine | DX: R19.7 Diarrhea, unspecified (principal) | CPT/HCPCS: 87177; 87205; 87209; 87493; 87506 ==

== ENCOUNTER → 2020-03-13 15:05 | Outpatient (BNVA) | payer MEDICARE, OTHER, SELFPAY | PROVIDERS: PCP Family Medicine; Visit Provider Surgery | DX: Z11.59 Encounter for screening for other viral diseases (principal) | CPT/HCPCS: 87635 ==

== ENCOUNTER 2020-03-17 07:43 | Day surgery (SDC) | payer MEDICARE, OTHER, SELFPAY ==
--- NOTE | 2020-03-17 07:56 | ECG_ITS ---
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 Measurements Intervals [place] Rate: 99 P: 51 [place]: 172 QRS: -46 QRSD: 90 T: 76 QT: 349 QTc: 450 Interpretive Statements SINUS RHYTHM LEFT ANTERIOR FASCICULAR BLOCK [QRS AXIS <= -45, QR IN I, RS IN II] POSSIBLE ANTERIOR MYOCARDIAL INFARCTION [30 ms Q WAVE IN V3/V4, OR R < 0.2 mV IN V4], OF INDETERMINATE AGE Compared to ECG 11/29/2019 03:47:18 Left anterior fascicular block now present Myocardial infarct finding now present Electronically Signed On 03-17-2020 20:23:29 [employer]ORER by Antonio Meza M.D. [id number]
[2020-03-17 07:59] VITALS: BP 161/114; PULSE 118; RESP 18; TEMP 36.3; O2SAT 98
[2020-03-17] MEDS: sodium chloride 0.9% 1,000 ML 30 ML IV (08:10)
--- NOTE | 2020-03-17 08:34 | P.ANESASSM_ITS ---
Pre-Anesthetic Assessment Pre-Anesthetic Assessment: Height/Weight: Height 1.73 m Weight 106.594 kg Temp Pulse Resp BP Pulse Ox 97.3 F L 118 H 18 161/114 98 03/17/20 07:59 03/17/20 07:59 03/17/20 07:59 03/17/20 07:59 03/17/20 07:59 Preop Diagnosis: gerd, diverticulitis Proposed Procedure: Operation Date: 03/17/20 09:00 Proposed Procedures p EGD 64355 R10.13(Not Applicable) - Isiah Rosen MD s Colonoscopy 98811 Z12.11(Not Applicable) - Isiah Rosen MD Familial anesthetic complications: Patient had shakes after her knee scope and stayed 3-4 hrs for this outpatient procedure. 5 years ago she then had knee replacement. It seems as though in the recovery room the patient had symptoms of seizure or stroke. Her was brought back to the recovery room and was told she's either had a seizure or a stroke. He described a procedure happening that was most likely a central line and she had to go to ICU and they intubated her. She talked about having a rash all over her body. They ruled out stroke at the hospital. She said it may have been allergic reaction and hospital told her there was no way to know which drug caused it as she received 27 different medications during her visit. Was Beta Javi taken within 24 hours: N/A Last intake: Intake Last Liquid Date 03/16/20 Last Liquid Time 20:00 Last Solid Date 03/15/20 Social: Social History: No alcohol and No tobacco Exam: Pre-Anes Outpt Exam: alert, oriented x 3, clear to auscultation bilatera lly and regular rate & rhythm Airway: Cervical ROM: WNL MP: 2 Dentition: Full Pulmonary: Pulmonary: Sleep apnea CV/HEM: CV/HEM: HTN Metabolic: Metabolic: DM Musc/skel: Comments: L rotator cuff tear - will have patient get into comfortable position first before inducing anesthesia to help prevent positioning injury Anesthetic Plan: ASA status: 2 Anesthesia: MAC Risk of > 500 ml blood loss (7ml/kg in children): No Other Pertinent Information: patient informed that we are unable to predict her reaction to propofol. We will only use propofol (no lidocaine) and give 1cc and wait a minute to see how she tolerates. Then slowly give more. Meds/Allergies Current Medications: Current Medications Generic Name Dose Route Start Last Admin Trade Name Teresa PRN Reason Stop Dose Admin Sodium Chloride 1,000 mls @ 30 ml s/hr 03/17/20 08:00 03/17/20 08:10 Sodium Chloride 0.9% IV 03/18/20 07:59 30 mls/hr .Q24H NANCY Administration PFSH Anesthesia PFSH: Medical History Depression Essential hypertension GERD (gastroesophageal reflux disease) Hyperlipidemia Type 2 diabetes mellitus, without long-term current use of insulin Surgical History H/O: hysterectomy S/P appendectomy S/p bilateral carpal tunnel release S/P breast augmentation S/P cholecystectomy S/P discectomy Status post total knee replacement, left Family History Other CAD (coronary artery disease) Cancer Diabetes Stroke Denies family history of Anesthesia complication Bleeding disorder Social History Smoking and tobacco status: never smoked Alcohol intake: current Alcohol intake frequency: holidays/special occasions only Lives independently: No Household members: spouse Marital status: Current occupational status: retired History of recent travel: No Data Anesthesia Cardiac Studies: No Data to Display
--- NOTE | 2020-03-17 10:07 | W.PM.OPSUD ---
Surgery/Procedure H&P Update DATE OF PROCEDURE: March 17, 2020 DATE H&P PERFORMED: 02/18/20 H&P UPDATE INFORMATION: I have reviewed H&P completed within last 30 days, I have examined patient prior to procedure and No changes to prior documentation PREOP DIAGNOSIS: gerd, diverticulitis PLANNED PROCEDURE: Operation Date: 03/17/20 09:00 Proposed Procedures p EGD 46550 R10.13(Not Applicable) - Isiah Rosen MD s Colonoscopy 59232 Z12.11(Not Applicable) - Isiah Rosen MD
[2020-03-17 10:57] VITALS: BP 144/89; PULSE 81; RESP 16; TEMP 36.4; O2SAT 99
--- NOTE | 2020-03-17 11:15 | ANE.PACU2 ---
Inpatient post-anesthesia follow up: Airway intact: Yes Vital signs: Temperature 97.5 F Pulse Rate 79 Respiratory Rate 18 Blood Pressure 112/76 Pulse Oximetry 99 Oxygen Delivery Me thod Room Air Oxygen Flow Rate 2 Fraction of Inspir ed Oxygen Hydration adequate: Yes Nausea and vomiting: No Pain level: 1 Mental status: Baseline
[2020-03-17 11:16] VITALS: BP 112/76; PULSE 79; RESP 18; O2SAT 99
== END 2020-03-17 11:36 | disposition home or self-care (01) ==
PROVIDERS: PCP Family Medicine; Visit Provider Surgery
PROC: 0DJ08ZZ Inspection of Upper Intestinal Tract, Via Natural or Artificial Opening Endoscopic (ICD-10-PCS; CPT 43235; principal; 2020-03-17 09:00)
PROC: 0DJD8ZZ Inspection of Lower Intestinal Tract, Via Natural or Artificial Opening Endoscopic (ICD-10-PCS; CPT 45378; 2020-03-17 09:00)
DX: R10.32 Left lower quadrant pain (principal); K21.9 Gastro-esophageal reflux disease without esophagitis; K57.30 Diverticulosis of large intestine without perforation or abscess without bleeding; K64.8 Other hemorrhoids; K29.70 Gastritis, unspecified, without bleeding; Z79.82 Long term (current) use of aspirin; F32.9 Major depressive disorder, single episode, unspecified; I10 Essential (primary) hypertension; E78.5 Hyperlipidemia, unspecified; E11.9 Type 2 diabetes mellitus without complications
CPT/HCPCS: 12345; 43239; 88305; 93005; G0121; J2704; J7030

== ENCOUNTER 2020-05-22 10:09 | Emergency (ER) | payer MEDICARE, OTHER, SELFPAY ==
[2020-05-22] VITALS (10 sets, daily range): BP systolic 132–186; BP diastolic 77–112; PULSE 74–82; RESP 14–20; TEMP 36.7; O2SAT 97–99; BMI 37.2
--- NOTE | 2020-05-22 12:51 | ECG_ITS ---
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 Measurements Intervals [place] Rate: 72 P: 51 [place]: 156 QRS: -14 QRSD: 100 T: 30 QT: 421 QTc: 461 Interpretive Statements SINUS RHYTHM LOW QRS VOLTAGE IN PRECORDIAL LEADS [QRS DEFLECTION < 1.0 mV IN CHEST LEADS] Compared to ECG 03/17/2020 08:17:18 Low QRS voltage now present Left anterior fascicular block no longer present Myocardial infarct finding no longer present Electronically Signed On 05-22-2020 17:10:11 UNEMPL[employer]MENT BENEFITS CLAIMS TAKER by Sam Bennett M.D. [id number]
--- NOTE | 2020-05-22 12:53 | W.ED.NAVMDI ---
HPI - Nausea/Vomiting/Diarrhea General: Chief complaint: Nausea/Vomiting/Diarrhea Stated complaint: N/V 24hours Time Seen by Provider: 05/22/20 12:31 History of Present Illness: HPI Narrative: The patient is a 65-year-old female who comes to the ER for nausea and vomiting since last night. She is unable to keep anything down even liquids and her blood pressure medications. She she also says she has a headache and feels flushed. She has had her gallbladder removed and thinks she was told last month that something is still wrong with what is left but she is not sure of the diagnosis. Denies diarrhea and abdominal pain. Review of the endoscopy from March shows bile reflux gastritis and she was started on cholestyramine which helped her symptoms. She also has a history of diverticulitis. MD elicited complaint: nausea and vomiting Description of vomiting: food contents and watery Associated nausea: Yes Associated abdominal pain: No Severity: moderate Quality: cramping Exacerbating factors: eating and vomiting Relieving factors: none Associated symtoms: Reports nausea; Denies anxiety, change in vision, chest pain, dizziness, fatigue, headache(s) or palpitations Review of Systems General: Reports: 10 or more systems reviewed and unremarkable except in HPI and below Const: Denies: fatigue Eyes: Denies: change in vision, blurry vision or eye redness ENMT: Denies: throat pain, swelling of lips/tongue, ear or mastoid pain or nasal congestion Card: Denies: chest pain, palpitations, irregular heart rhythm, edema, dyspnea on exertion or orthopnea Resp: Denies: dyspnea, productive cough or non-productive cough GI: Reports: nausea : Denies: flank pain, difficulty voiding, urinary frequency or urinary urgency Musc: Denies: neck pain, back pain, extremity pain, joint pain, joint redness, limited range of motion or muscle weakness Skin/Breast: Denies: rash, pruritus, erythema, skin pain or skin tenderness Neuro: Denies: headache(s), numbness in extremities, weakness in extremities, sensory changes, difficulty walking, dizziness, confusion or Slurred speech present Psych: Denies: anxiety or depression Endo: Denies: polyuria All/Imm: Denies: urticaria, throat swelling or tongue swelling PFS ED PFSH: Medical History (Updated 05/22/20 @ 17:16 by Phill Alcaraz MD) Bile reflux gastritis Depression Essential hypertension GERD (gastroesophageal reflux disease) Hyperlipidemia Type 2 diabetes mellitus, without long-term current use of insulin Surgical History (Updated 04/03/20 @ 13:57 by Isiah Rosen MD) H/O esophagogastroduodenoscopy (~03/2020) H/O: hysterectomy S/P appendectomy S/p bilateral carpal tunnel release S/P breast augmentation S/P cholecystectomy S/P discectomy Status post colonoscopy (~03/2020) Diverticulosis sigmoid colon Status post total knee replacement, left Family History Other CAD (coronary artery disease) Cancer Diabetes Stroke Denies family history of Anesthesia complication Bleeding disorder Social History Smoking and tobacco status: never smoked Alcohol intake: current Alcohol intake frequency: holidays/special occasions only Lives independently: No Household members: spouse Marital status: Current occupational status: retired History of recent travel: No Physical Exam Const: COMMON NORMALS: no acute distress, average body habitus, patient oriented x3, no limitations, healthy appearing, alert and well nourished GENERAL APPEARANCE: cooperative, comfortable, well kempt and well developed ORIENTATION/CONSCIOUSNESS: Yes awake, Yes oriented to person, Yes oriented to place and Yes oriented to time HENMT: COMMON NORMALS: normocephalic, external ears normal and Normal external nose present HEAD & SCALP: normal to inspection and normocephalic NOSE: Normal external nose present EXTERNAL EAR: Yes external ears normal MOUTH: Normal oral and palatal mucosa present THROAT: posterior oropharynx normal Eye: COMMON NORMALS: Equal, round and reactive pupils present and EOMs intact bilaterally GENERAL EYE: appearance normal, both eyes and all related structures PUPIL: Yes Equal, round and reactive pupils present Neck/C-Spine: COMMON NORMALS: full ROM, no lymphadenopathy, no meningeal signs and no JVD GENERAL: Yes normal visual inspection Lymph: LYMPHATIC: no lymphadenopathy noted Chest: COMMONS NORMALS: normal inspection of the chest and normal palpation of entire chest wall Resp: COMMON NORMALS: normal respiratory effort, No retractions, No use of accessory muscles, clear to auscultation bilaterally and percussion normal EFFORT & INSPECTION: Yes able to speak in complete sentences AUSCULTATION: clear to auscultation bilaterally PERCUSSION: percussion normal Cardio: COMMON NORMALS: no JVD, regular rate, regular rhythm, S1 normal heart sound present, S2 normal heart sound present and Peripheral pulses 2+ throughout RATE: regular rate RHYTHM: regular rhythm HEART SOUNDS: S1 normal heart sound present and S2 normal heart sound present PERIPHERAL PULSES: Peripheral pulses 2+ throughout GI: COMMON NORMALS: Normal to inspection, nondistended, normoactive bowel sounds present, Soft to palpation, non-tender and no masses INSPECTION: Yes normal to inspection PALPATION: Yes Soft to palpation : COMMON NORMALS: Yes no CVA tenderness BLADDER/KIDNEY EXAM: Yes no CVA tenderness Back/Pelvis: COMMON NORMALS: no CVA tenderness, thoracic and lumbar spine normal to inspection, no thoracic nor lumbar tenderness and thoraco-lumbar ROM normal Extremity: COMMON NORMALS: normal to inspection, full ROM, capillary refill normal, no joint enlargement and no pedal edema GENERAL: Yes normal exam except as noted Neuro: COMMON NORMALS: patient oriented x3, CN's II-XII intact bilaterally, moves all extremities, no focal motor deficits, no sensory deficits noted and gait normal SENSORIUM/ORIENTATION: Yes alert, Yes oriented to person, Yes oriented to place and Yes oriented to time MENINGEAL SIGNS: Yes no meningeal signs Psych: COMMON NORMALS: mental status grossly normal, Normal thought process present, cooperative, normal affect and speech normal APPEARANCE: Yes well kempt ATTITUDE: Yes calm SPEECH: Yes normal speech THOUGHT PROCESS: Normal thought process present Skin: COMMON NORMALS: no rashes or lesions noted GENERAL SKIN EXAM: no rashes or lesions noted Course Vital Signs: Vital signs: Vital Signs Temperature 98.1 F 05/22/20 10:29 Pulse Rate 77 05/22/20 17:00 Respiratory Rate 16 05/22/20 17:00 Blood Pressure 141/80 05/22/20 17:00 Pulse Oximetry 98 05/22/20 17:00 MDM - Nausea/Vomiting/Diarrhea MDM Narrative: Medical decision making narrative: The patient came to the ER with significant vomiting requiring Zofran and Benadryl to help her with her symptoms. They resolved however her throat continued to hurt and she was given Maalox to help with that as well. She was given IV fluids as her lactic acid was elevated on arrival and after it was repeated it lowered to a dischargeable level. She also feels slightly better and we will discharge her with Zofran. Primary care doctor in a few days otherwise follow-up with the ER if symptoms worsen Lab Data: Labs: Lab Results 05/22/20 05/22/20 05/22/20 Range/Units 12:47 12:47 12:47 WBC 12.2 H (4.0-10.0) 10^3/ uL RBC 4.59 (4.1-5.3) 10^6/u L Hgb 14.2 (11.5-15.3) g/dL Hct 42.4 (37.0-47.0) % MCV 92.4 (81-99) fL MCH 30.9 (28.0-34.0) pg MCHC 33.5 (30.0-36.0) g/dL RDW 13.2 (12.1-15.1) % Plt Count 370 (130-400) 10^3/c mm MPV 9.7 (7.4-10.4) fL Neut % (Auto) 81.2 % Lymph % (Auto) 13.6 % [place] % (Auto) 4.3 % Eos % (Auto) 0.0 % Baso % (Auto) 0.3 % Neut # (Auto) 9.92 H (1.8-7.7) 10^3/u L Lymph # (Auto) 1.7 (0.8-4.8) 10^3/u L [place] # (Auto) 0.5 (0.2-0.9) 10^3/u L Eos # (Auto) 0.0 (0.0-0.8) 10^3/u L Baso # (Auto) 0.0 (0.0-0.1) 10^3/u L Nucleated RBC % (a uto) 0 % Nucleated RBCs # 0.0 /100WBC Sodium 138 (136-145) mmol/L Potassium 3.6 (3.5-5.1) mmol/L Chloride 97 L (98-107) mmol/L Carbon Dioxide 26 (22-29) mmol/L Anion Gap 18.6 (5-19) BUN 11 (8-23) mg/dL Creatinine 0.8 (0.5-0.9) mg/dL GFR Calculation 71.5 L (90-130) mL/min Glucose 137 H (65-115) mg/dL Calculated Osmolal ity 288 (285-295) mOsm/k g Lactate (0.5-2.2) mmol/L Calcium 10.2 (8.5-10.5) mg/dL Total Bilirubin 0.4 (0.15-1.2) mg/dL AST 13 (0-32) U/L ALT 21 (0-33) U/L Alkaline Phosphata se 107 H (35-105) IU/L Troponin T Baselin e 6 (0-10) ng/L Total Protein 7.7 (6.6-8.7) g/dL Albumin 4.7 (3.5-5.2) g/dL Globulin 3.0 (1.3-4.6) g/dL Lipase 14 (13-60) U/L Urine Color (Yellow) Urine Appearance (CLEAR) Urine pH (5-7) Ur Specific [place]it y (1.005-1.030) Urine Protein (Negative) Urine Glucose (UA) (Normal) Urine Ketones (Negative) Urine Blood (Negative) Urine Nitrate (Negative) Urine Bilirubin (Negative) Prot Sulfosalicyli c Acd (Negative) Urine Urobilinogen (Negative) mg/dL Ur Leukocyte Catherine ase (Negative) 05/22/20 05/22/20 05/22/20 Range/Units 13:05 13:52 16:05 WBC (4.0-10.0) 10^3/ uL RBC (4.1-5.3) 10^6/u L Hgb (11.5-15.3) g/dL Hct (37.0-47.0) % MCV (81-99) fL MCH (28.0-34.0) pg MCHC (30.0-36.0) g/dL RDW (12.1-15.1) % Plt Count (130-400) 10^3/c mm MPV (7.4-10.4) fL Neut % (Auto) % Lymph % (Auto) % [place] % (Auto) % Eos % (Auto) % Baso % (Auto) % Neut # (Auto) (1.8-7.7) 10^3/u L Lymph # (Auto) (0.8-4.8) 10^3/u L [place] # (Auto) (0.2-0.9) 10^3/u L Eos # (Auto) (0.0-0.8) 10^3/u L Baso # (Auto) (0.0-0.1) 10^3/u L Nucleated RBC % (a uto) % Nucleated RBCs # /100WBC Sodium (136-145) mmol/L Potassium (3.5-5.1) mmol/L Chloride (98-107) mmol/L Carbon Dioxide (22-29) mmol/L Anion Gap (5-19) BUN (8-23) mg/dL Creatinine (0.5-0.9) mg/dL GFR Calculation (90-130) mL/min Glucose (65-115) mg/dL Calculated Osmolal ity (285-295) mOsm/k g Lactate 3.4 H 2.3 H (0.5-2.2) mmol/L Calcium (8.5-10.5) mg/dL Total Bilirubin (0.15-1.2) mg/dL AST (0-32) U/L ALT (0-33) U/L Alkaline Phosphata se (35-105) IU/L Troponin T Baselin e (0-10) ng/L Total Protein (6.6-8.7) g/dL Albumin (3.5-5.2) g/dL Globulin (1.3-4.6) g/dL Lipase (13-60) U/L Urine Color Yellow (Yellow) Urine Appearance Clear (CLEAR) Urine pH 8 H (5-7) Ur Specific Gravit y 1.010 (1.005-1.030) Urine Protein Neg (Negative) Urine Glucose (UA) Norm (Normal) Urine Ketones Negative (Negative) Urine Blood Neg (Negative) Urine Nitrate Negative (Negative) Urine Bilirubin Neg (Negative) Prot Sulfosalicyli c Acd Negative (Negative) Urine Urobilinogen 1 H (Negative) mg/dL Ur Leukocyte Catherine ase Negative (Negative) Discharge Plan Discharge Patient Disposition: Home Clinical Impression: Gastroenteritis Condition: Stable Prescriptions: New ondansetron 4 mg tablet,disintegrating 4 mg PO Q8H 4 Days Qty: 12 RF: 0 No Action aspirin [Adult Aspirin Regimen] 81 mg tablet,delayed release (DR/EC) 81 mg PO DAILY@2300 RF: 0 ondansetron HCl [Zofran] 4 mg tablet 4 mg PO Q6H PRN (Reason: Nausea) RF: 0 nitroglycerin [Nitrostat] 0.4 mg tablet, sublingual 0.4 mg SUBLINGUAL Q5M PRN (Reason: Chest Pain) RF: 0 dicyclomine 10 mg capsule 10 mg PO Q6H PRN (Reason: CRAMPING) RF: 0 levocetirizine [Xyzal] 5 mg tablet 5 mg PO DAILY@230 RF: 0 Questran Light 4 gram powder 4 gm PO TID Qty: 210 RF: 2 losartan 50 mg tablet 50 mg PO BID@1100,2300 RF: 0 atorvastatin 40 mg tablet 40 mg PO DAILY@230 RF: 0 Effexor XR 75 mg capsule,extended release 24hr 75 mg PO DAILY@2299 RF: 0 Effexor XR 150 mg capsule,extended release 24hr 150 mg PO DAILY@2299 RF: 0 chlorthalidone 25 mg tablet 12.5 mg PO DAILY@2299 RF: 0 amlodipine 5 mg tablet 5 mg PO DAILY@2299 RF: 0 Protonix 40 mg tablet,delayed release (DR/EC) 40 mg PO BID@1100,2300 RF: 0 estradiol 2 mg tablet 2 mg PO DAILY@230 RF: 0 folic acid 1 mg tablet 1 mg PO DAILY@230 RF: 0 Discharge Orders: Discharge ED (Routine); Ordered 05/22/20 Ordered By: Phill Alcaraz Referrals: Jelly Patel DO [Primary Care Provider] - Discharge Diet: Advance as tolerated Discharge Activity: Increase activity as tolerated Patient Instructions: Gastroenteritis (ED) Activity Restrictions/Additional Instructions: You have gastroenteritis. Please use the Zofran and let it dissolve in your mouth which should help with nausea. Drink as much fluid as you can and then start with easy to digest foods. Return to the ER if you are unable to eat or drink and the vomiting worsens. Otherwise follow-up with your primary care doctor in 3 to 5 days Coding Level of Care Code ED Biofuels Manager for Chg Fwd Exam Comprehensive
[2020-05-22 13:07] LABS: Basophils % 0.3 %; Hematocrit 42.4 % (37.0-47.0); Hemoglobin 14.2 g/dL (11.5-15.3); Lymphocytes # 1.7 10^3/uL (0.8-4.8); Lymphocytes % 13.6 %; Mean Corpuscular HGB Conc 33.5 g/dL (30.0-36.0); Mean Corpuscular Hemoglobin 30.9 pg (28.0-34.0); Mean Corpuscular Volume 92.4 fL (81-99); Mean Platelet Volume 9.7 fL (7.4-10.4); Monocytes # 0.5 10^3/uL (0.2-0.9); Monocytes % 4.3 %; Neutrophils # 9.92 10^3/uL (1.8-7.7); Neutrophils % 81.2 %; Nucleated Red Blood Cells % 0 %; Platelet Count 370 10^3/cmm (130-400); Red Blood Count 4.59 10^6/uL (4.1-5.3); Red Cell Distribution Width 13.2 % (12.1-15.1); White Blood Count 12.2 10^3/uL (4.0-10.0)
[2020-05-22] MEDS: sodium chloride 0.9% 1,000 ML 999 ML IV (13:08)
[2020-05-22] MEDS: ondansetron 2 mg/ML SDV 2 mL 4 MG IVP (13:14)
[2020-05-22] MEDS: diphenhydrAMINE 50 mg/mL SDV 1mL 25 MG IVP (13:17)
[2020-05-22 13:26] LABS: Lactate (Lactic Acid level) 3.4 mmol/L (0.5-2.2)
[2020-05-22 13:27] LABS: Alanine Aminotransferase 21 U/L (0-33); Albumin Level 4.7 g/dL (3.5-5.2); Alkaline Phosphatase 107 IU/L (35-105); Anion Gap 18.6 (5-19); Aspartate Amino Transferase 13 U/L (0-32); Blood Urea Nitrogen 11 mg/dL (8-23); Calcium 10.2 mg/dL (8.5-10.5); Carbon Dioxide 26 mmol/L (22-29); Chloride 97 mmol/L (98-107); Glomerular Filtration Rate 71.5 mL/min (90-130); Glucose 137 mg/dL (65-115); Lipase 14 U/L (13-60); Osmolality Calculated 288 mOsm/kg (285-295); Potassium 3.6 mmol/L (3.5-5.1); Sodium 138 mmol/L (136-145); Total Bilirubin 0.4 mg/dL (0.15-1.2); Total Protein 7.7 g/dL (6.6-8.7)
[2020-05-22 13:29] LABS: Troponin(5th) Baseline 6 ng/L (0-10)
[2020-05-22] MEDS: hyDRALAzine 20 mg/mL INJ 1 mL 10 MG IVP (13:30)
[2020-05-22 14:15] LABS: Add Urine Microscopic? NO
[2020-05-22 14:26] LABS: Bilirubin Urine Neg (Negative); Blood Urine Neg (Negative); Glucose Urine UA Norm (Normal); Ketones Urine Negative (Negative); Leukocyte Esterase Urine Negative (Negative); Nitrate Urine Negative (Negative); Protein Urine Neg (Negative); Sulfosalicylic Acid Urine Negative (Negative); Urine Appearance Clear (CLEAR); Urine Color Yellow (Yellow); Urobilinogen Urine 1 mg/dL (Negative); pH Urine 8 (5-7)
[2020-05-22 16:55] LABS: Lactate (Lactic Acid level) 2.3 mmol/L (0.5-2.2)
[2020-05-22] MEDS: lidocaine 2% viscous 15 ML, aluminum-mag hydrox-simethicon 30 ML, sucralfate oral liq 1 GM PO (17:14)
== END 2020-05-22 17:35 | disposition home or self-care (01) ==
PROVIDERS: Family Medicine; Emergency Provider Family Medicine; PCP Family Medicine
DX: K52.9 Noninfective gastroenteritis and colitis, unspecified (principal); Z79.82 Long term (current) use of aspirin; I10 Essential (primary) hypertension; E78.5 Hyperlipidemia, unspecified; E11.9 Type 2 diabetes mellitus without complications
CPT/HCPCS: 12345; 80053; 81003; 83605; 83690; 84484; 85025; 93005; 96361; 96374; 96375; 99283; J0360; J1200; J2405; J7030

== ENCOUNTER → 2020-06-09 15:22 | Outpatient (BNVA) | payer MEDICARE, OTHER, SELFPAY | PROVIDERS: PCP Family Medicine; Visit Provider Family Medicine | DX: E78.5 Hyperlipidemia, unspecified (principal); I10 Essential (primary) hypertension; F33.1 Major depressive disorder, recurrent, moderate; L65.9 Nonscarring hair loss, unspecified | CPT/HCPCS: 80061; 84443 ==

== ENCOUNTER → 2020-09-18 11:58 | Outpatient (BNVA) | payer MEDICARE, OTHER, SELFPAY | PROVIDERS: PCP Family Medicine; Visit Provider Family Medicine | DX: E11.9 Type 2 diabetes mellitus without complications (principal); N95.1 Menopausal and female climacteric states | CPT/HCPCS: 83036 ==

== ENCOUNTER 2020-09-21 06:00 | Outpatient (RCR) | payer MEDICARE, OTHER, SELFPAY | END 2020-10-12 23:59 | disposition home or self-care (01) | LOC: SPT 06:00 | PROVIDERS: PCP Family Medicine; Referring Provider Family Medicine; Visit Provider Family Medicine | DX: M54.41 Lumbago with sciatica, right side (principal) | CPT/HCPCS: 97110; 97161; G0283 ==

== ENCOUNTER 2020-09-21 13:52 | Outpatient (CLI) | payer MEDICARE, OTHER, SELFPAY ==
--- NOTE | 2020-09-21 13:56 | MM_ITS ---
WS: [id number] BILATERAL SCREENING MAMMOGRAM WITH VALERIA DISPLACEMENT VIEWS. CAD PERFORMED. HISTORY: SCREENING COMPARISON: 06/06/2018 and 07/03/2001 Bilateral craniocaudal and mediolateral like views are performed. Valeria displacement views in CC and MLO projection also performed. Breasts composition: The breasts are heterogeneously dense, which may obscure small masses. Benign r odlike calcifications in each breast. There are additional rounded coarse calcification. No suspiciou s mass or calcification. Retropectoral implants are intact. MM/[place] [id number] IMPRESSION: BI-RADS: 2-Benign FOLLOW-UP: 1 Year Follow-up
== END 2020-09-21 13:53 | disposition home or self-care (01) ==
LOC: RADSHAW 13:54
PROVIDERS: PCP Family Medicine; Visit Provider Family Medicine
DX: Z12.31 Encounter for screening mammogram for malignant neoplasm of breast (principal)
CPT/HCPCS: 77067

== ENCOUNTER → 2021-03-18 14:57 | Outpatient (BNVA) | payer MEDICARE, OTHER, SELFPAY | PROVIDERS: PCP Family Medicine; Visit Provider Family Medicine | DX: E11.9 Type 2 diabetes mellitus without complications (principal); E78.5 Hyperlipidemia, unspecified; I10 Essential (primary) hypertension | CPT/HCPCS: 80053; 80061; 82043; 83036; 85025 ==

== ENCOUNTER → 2021-04-30 10:17 | Outpatient (BNVA) | payer MEDICARE, OTHER, SELFPAY | PROVIDERS: PCP Family Medicine; Visit Provider Obstetrics & Gynecology | DX: N39.3 Stress incontinence (female) (male) (principal); N81.6 Rectocele | CPT/HCPCS: 87635 ==

== ENCOUNTER 2021-05-05 13:56 | Observation (INO) | payer MEDICARE, OTHER, SELFPAY ==
--- NOTE | 2021-05-03 11:05 | ECG_ITS ---
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1955 Requested By: Rhianna Bell Order Number: [id number] Reading MD: SKYLAR JI Measurements Intervals [place] Rate: 94 P: 63 PA: 170 QRS: -40 QRSD: 89 T: 69 QT: 355 QTc: 444 Interpretive Statements SINUS RHYTHM LEFT AXIS DEVIATION [QRS AXIS < -30] LOW QRS VOLTAGE IN PRECORDIAL LEADS [QRS DEFLECTION < 1.0 mV IN CHEST LEADS] POSSIBLE ANTERIOR MYOCARDIAL INFARCTION , OF INDETERMINATE AGE [30 ms Q WAVE IN V3/V4, OR R < 0.2 mV IN V4] Compared to ECG 05/22/2020 12:57:11 Left-axis deviation now present Myocardial infarct finding now present Electronically Signed On 05-03-2021 19:04:42 MACHINE PACK ASSEMBLER by SKYLAR JI [id number]
[2021-05-03 11:24] VITALS: BMI 40.7
[2021-05-03 12:15] LABS: Add Urine Microscopic? NO; Charge for UA Resulting for Rev
[2021-05-03 12:17] LABS: Bilirubin Urine Neg (Negative); Blood Urine Neg (Negative); Glucose Urine UA Norm (Normal); Ketones Urine Negative (Negative); Leukocyte Esterase Urine Negative (Negative); Nitrate Urine Negative (Negative); Protein Urine Neg (Negative); Specific Gravity, Urine 1.015 (1.005-1.030); Urine Appearance Clear (CLEAR); Urine Color Yellow (Yellow); Urobilinogen Urine 1 mg/dL (Negative); pH Urine 6 (5-7)
[2021-05-03 12:18] LABS: Basophils # 0.1 10^3/uL (0.0-0.1); Basophils % 0.7 %; Eosinophils # 0.3 10^3/uL (0.0-0.8); Eosinophils % 2.5 %; Hematocrit 40.7 % (37.0-47.0); Lymphocytes # 2.4 10^3/uL (0.8-4.8); Lymphocytes % 24.4 %; Mean Corpuscular HGB Conc 34.4 g/dL (30.0-36.0); Mean Corpuscular Hemoglobin 31.3 pg (28.0-34.0); Mean Corpuscular Volume 90.8 fl (81-99); Monocytes # 0.5 10^3/uL (0.2-0.9); Monocytes % 4.5 %; Neutrophils # 6.67 10^3/uL (1.8-7.7); Neutrophils % 67.5 %; Nucleated Red Blood Cells % 0 %; Platelet Count 335 10^3/cmm (130-400); Red Blood Count 4.48 10^6/uL (4.1-5.3); White Blood Count 9.9 10^3/uL (4.0-10.0)
[2021-05-03 12:48] LABS: Alanine Aminotransferase 23 U/L (0-33); Alkaline Phosphatase 80 IU/L (35-105); Anion Gap 19.7 (5-19); Aspartate Amino Transferase 18 U/L (0-32); Blood Urea Nitrogen 14 mg/dL (8-23); Calcium 8.7 mg/dL (8.5-10.5); Carbon Dioxide 23 mmol/L (22-29); Chloride 97 mmol/L (98-107); Globulin 2.9 g/dL (1.3-4.6); Glomerular Filtration Rate 71.3 mL/min (90-130); Glucose 211 mg/dL (65-115); Osmolality Calculated 289 mOsm/kg (285-295); Potassium 3.7 mmol/L (3.5-5.1); Sodium 136 mmol/L (136-145); Total Bilirubin 0.3 mg/dL (0.15-1.2); Total Protein 6.9 g/dL (6.6-8.7)
--- NOTE | 2021-05-03 12:50 | ANES.PREANE2 ---
Pre-Anesthetic Assessment Pre-Anesthetic Assessment: Height/Weight: Height 1.7 m Weight 117.934 kg Preop Diagnosis: gerd, diverticulitis Proposed Procedure: Operation Date: 05/05/21 10:55 Proposed Procedures p Posterior Repair Posterior Colporrhaphy [id number] n81.6 n39.3(Not Applicable) - Landry Maravilla MD s Midurethral single incision sling(Not Applicable) - Landry Maravilla MD Familial anesthetic complications: states she had an allergic reaction to general anesthesia during her knee replacement. She has since had a knee scope and had some shakiness. Wants a spinal Social: Social History: No alcohol and No tobacco Exam: Pre-Anes Outpt Exam: alert, oriented x 3, clear to auscultation bilaterally and regular rate & rhythm Airway: MP: 2 Dentition: Chipped and Full Pulmonary: Pulmonary: Asthma CV/HEM: CV/HEM: Angina (Stable) and HTN GI: GI: GERD Metabolic: Metabolic: DM and Morbid obesity Anesthetic Plan: ASA status: 2 Anesthesia: Regional (specify below) (spinal) Risk of > 500 ml blood loss (7ml/kg in children): No Other Pertinent Information: Did well with colonoscopy PFSH Anesthesia PFSH: Medical History Bile reflux gastritis Depression Essential hypertension GERD (gastroesophageal reflux disease) History of COVID-19 Hyperlipidemia Type 2 diabetes mellitus, without long-term current use of insulin Surgical History H/O esophagogastroduodenoscopy (~03/2020) History of total abdominal hysterectomy and bilateral salpingo-oophorectomy (~2000) performed in [place]; due to fibroid S/P appendectomy S/p bilateral carpal tunnel release S/P breast augmentation (~2002) saline S/P cholecystectomy S/P discectomy lumbar Status post colonoscopy (~03/2020) Diverticulosis sigmoid colon Status post total knee replacement, left Family History Family/Other Thyroid disease Maternal Aunt Cancer prostate Family/Other Thyroid disease Paternal Niece Mother Heart disease A-fib Diabetes Brother A-fib Hypertension Cancer throat and tongue Father Cancer Lung CA Other CAD (coronary artery disease) Stroke Denies family history of Colon cancer Ovarian cancer Hypercholesteremia Anesthesia complication Bleeding disorder Social History (Updated 05/03/21 @ 08:49 by Aysha Larkin RN) Smoking and tobacco status: former smoker Alcohol intake: current Alcohol intake frequency: holidays/special occasions only Substance/Drug Use: never Data Anesthesia CBC & Chem 7: 05/03/21 11:45 05/03/21 11:45 Other Labs: Laboratory Results - last 48 hr 05/03/21 05/03/21 05/03/21 11:45 11:45 11:45 WBC 9.9 RBC 4.48 Hgb 14.0 Hct 40.7 MCV 90.8 MCH 31.3 MCHC 34.4 RDW 13.0 Plt Count 335 MPV 10.0 Neut % (Auto) 67.5 Lymph % (Auto) 24.4 [place] % (Auto) 4.5 Eos % (Auto) 2.5 Baso % (Auto) 0.7 Neut # (Auto) 6.67 Lymph # (Auto) 2.4 [place] # (Auto) 0.5 Eos # (Auto) 0.3 Baso # (Auto) 0.1 Nucleated RBC % (auto) 0 Nucleated RBCs # 0.0 Sodium 136 Potassium 3.7 Carbon Dioxide 23 BUN 14 Creatinine 0.8 Calculated Osmolality 289 Calcium 8.7 Total Bilirubin 0.3 AST 18 ALT 23 Alkaline Phosphatase 80 Total Protein 6.9 Albumin 4.0 Globulin 2.9 Urine Color Urine Appearance Urine pH Ur Specific [place] Urine Protein Urine Glucose (UA) Urine Ketones Urine Blood Urine Nitrate Urine Bilirubin Urine Urobilinogen Ur Leukocyte Esterase Blood Type A Positive Rho(D) Type Positive 05/03/21 11:55 WBC RBC Hgb Hct MCV MCH MCHC RDW Plt Count MPV Neut % (Auto) Lymph % (Auto) [place] % (Auto) Eos % (Auto) Baso % (Auto) Neut # (Auto) Lymph # (Auto) [place] # (Auto) Eos # (Auto) Baso # (Auto) Nucleated RBC % (auto) Nucleated RBCs # Sodium Potassium Carbon Dioxide BUN Creatinine Calculated Osmolality Calcium Total Bilirubin AST ALT Alkaline Phosphatase Total Protein Albumin Globulin Urine Color Yellow Urine Appearance Clear Urine pH 6 Ur Specific [place] 1.015 Urine Protein Neg Urine Glucose (UA) Norm Urine Ketones Negative Urine Blood Neg Urine Nitrate Negative Urine Bilirubin Neg Urine Urobilinogen 1 H Ur Leukocyte Esterase Negative Blood Type Rho(D) Type Cardiac Studies: No Data to Display
[2021-05-05] VITALS (18 sets, daily range): BP systolic 115–195; BP diastolic 43–107; PULSE 67–114; RESP 12–22; TEMP 36.1–36.6; O2SAT 90–100
[2021-05-05] MEDS: sodium chloride 0.9% 500 ML IV (10:13)
[2021-05-05 10:18] LABS: Glucose Point of Care 149 mg/dL (70-110)
[2021-05-05] MEDS: sodium chloride 0.9% 1,000 ML 30 ML IV (10:27)
[2021-05-05] MEDS: enoxaparin 30 mg/0.3 mL Syringe SUBCUT (10:28)
[2021-05-05] MEDS: scopolamine 1.5 Patch 1 PATCH TRANSDERMA (10:28)
--- NOTE | 2021-05-05 11:25 | W.PM.OPSUD ---
Surgery/Procedure H&P Update DATE OF PROCEDURE: May 05, 2021 DATE H&P PERFORMED: 05/03/21 H&P UPDATE INFORMATION: I have reviewed H&P completed within last 30 days, I have examined patient prior to procedure and No changes to prior documentation PREOP DIAGNOSIS: Rectocele stage III, stress urinary incontinence PLANNED PROCEDURE: Operation Date: 05/05/21 10:55 Proposed Procedures p Posterior Repair Posterior Colporrhaphy [id number] n81.6 n39.3(Not Applicable) - Landry Maravilla MD s Midurethral single incision sling(Not Applicable) - Landry Maravilla MD
--- NOTE | 2021-05-05 13:22 | P.OP_ITS ---
Operative Report Date of procedure: May 05, 2021 Pre-op Diagnosis: Rectocele stage II, stress urinary incontinence Procedure Done: Single incision mid urethral sling. Posterior colporrhaphy Pathology: none sent Surgeon: Landry Maravilla MD Anesthesia: General Estimated blood loss (mL): 20 Disposition: PACU Procedure: After obtaining informed consent, the patient was taken to the operating room and placed in the supine position, given general anesthesia, and prepped and draped in sterile fashion. The abdomen, vulva and vagina were prepped and draped in a sterile manner. A time out procedure was performed. The anterior vaginal mucosa beneath the midurethra was infiltrated with 0.5% Marcaine with epinephrine. A vertical midline incision was made beneath the midurethra, nearly 1.5 cm length. Careful submucosal dissection was performed bilaterally up to the interior portion of the inferior pubic ramus. The insertion of adductor longus tendon on the patient?s pubic ramus was identified as reference land brenda. Palpated the notch along the internal edge of ischiopubic ramus where the adductor longus tendon and the inferior pubic ramus meet. The [place] single incision sling (SIS) was selected. Then the needle of the SIS inserted aiming at the location of this notch. One of the integrated self- fixating tips place onto the needle by sliding it over the end of the needle. The needle/sling assembly was inserted toward the location of identified reference notch making sure that the flat of the handle is perpendicular to the desired path. The needle was tracked along the posterior surface of the ischiopubic ramus until the midline brenda on the mesh is approximately at the midline position under the urethra. The needle was removed and the same was repeated on the contralateral side until the appropriate sling tension under the urethra was achieved ensuring that the mesh lays flat. The needle was removed and vaginal incision was closed in a running interlocking fashion with 2-0 Vicryl. A dilute 2% lidocaine with epinephrine solution was infiltrated under the posterior vaginal mucosa midline and into the perineal body. An inverted triangle was cut in the perineum. The posterior vaginal wall was opened vertically and midline up to the apex of the rectocele. The cut edges were held and splayed laterally with a series of Allis. The open vaginal mucosa was then dissected laterally with a combination of sharp and blunt dissection, exposing the perirectal fascia. The perirectal fascia was then reapproximated with interrupted #2-0 Vicryl sutures to draw the lateral folds together and tuck the rectocele back. Deep interrupted sutures of #0 Vicryl were used to reapproximate the fibers of the levator ani muscles. The excess vaginal mucosa was trimmed. The posterior vaginal wall was closed with a running locked #0 Vicryl to the hymenal tags. The superficial perineal muscles were closed with running unlocked #0 Vicryl and the perineal skin was closed with running subcuticular #2-0 Vicryl. The Hernandez catheter was noticed with clear urine. Excellent hemostasis was obtained. Sponge, lap, needle, and instrument counts were correct times three. The patient was taken to the recovery room, awake and in stable condition.
--- NOTE | 2021-05-05 14:48 | ANE.PACU2 ---
Inpatient post-anesthesia follow up: Airway intact: Yes Vital signs: Temperature 97.5 F Pulse Rate 95 Respiratory Rate 15 Blood Pressure 195/87 Pulse Oximetry 99 Oxygen Delivery Me thod Room Air Oxygen Flow Rate 6 Fraction of Inspir ed Oxygen Hydration adequate: Yes Nausea and vomiting: No Pain level: 2 Mental status: Baseline
[2021-05-05] MEDS: ketorolac 30 mg/mL INJ IVP ×2 (16:43→22:49)
[2021-05-05] MEDS: docusate sodium 100 mg Capsule PO (18:02)
[2021-05-05] MEDS: dextrose 5%-lactated ringers 1,000 ML 125 ML IV (18:08)
[2021-05-05] MEDS: HYDROcodone-acetaminophen 5-325 mg Tablet PO (19:24)
[2021-05-05] MEDS: cyclobenzaprine 10 mg Tablet PO (21:07)
[2021-05-05] MEDS: amlodipine 10 mg Tablet 5 MG PO (22:49)
[2021-05-05] MEDS: montelukast sodium 10 mg Tablet PO (22:49)
[2021-05-05] MEDS: aspirin 81 mg EC Tablet PO (22:49)
[2021-05-05] MEDS: estradiol 1 mg Tablet 2 MG PO (22:50)
[2021-05-05] MEDS: chlorthalidone 25 mg Tablet PO (22:50)
[2021-05-05] MEDS: folic acid 1 mg Tablet PO (22:50)
[2021-05-06 04:30] VITALS: BP 114/65; PULSE 74; RESP 16; O2SAT 95
[2021-05-06 05:29] LABS: Hematocrit 35.3 % (37.0-47.0); Mean Corpuscular Hemoglobin 31.4 pg (28.0-34.0); Mean Corpuscular Volume 92.4 fl (81-99); Mean Platelet Volume 9.4 fL (7.4-10.4); Platelet Count 253 10^3/cmm (130-400); Red Blood Count 3.82 10^6/uL (4.1-5.3); Red Cell Distribution Width 12.9 % (12.1-15.1); White Blood Count 8.8 10^3/uL (4.0-10.0)
[2021-05-06] MEDS: HYDROcodone-acetaminophen 5-325 mg Tablet PO (07:39)
--- NOTE | 2021-05-06 08:23 | PM.OBGYDC ---
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 Forrester 66-year-old female with stage II rectocele and stress urinary incontinence. Admitted for planned posterior colporrhaphy and a single incision mid urethral sling. The procedures were performed without complications. Overnight observation uneventful. She is afebrile and hemodynamically stable postoperative day 1, tolerating diet well, ambulating without difficulty. Pain under control with medication. Patient was advised pelvic rest for 6 weeks. No heavy lifting greater than 10 pounds, and diet be soft mechanical. She was informed if PVR greater than 150 mL on 2 occasions she will be discharged home with a Hernandez catheter bag and to follow-up at the clinic to discontinue the Hernandez next week. Physical Exam Narrative: EXAM NARRATIVE: GA: Alert and oriented ?3. HEENT: WNL. Heart: Regular rate and rhythm. Lungs: Clear to auscultation bilaterally. Abdomen: Bowel sounds present, nontender PAN GREASER: Spotting bleeding. Extremities: No edema, no cyanosis, no calves pain. Urinary Catheter Management^: Hernandez: Cath Placed During This Visit: yes, but has since been removed by the nurse Reason for Continuing Indwelling Catheter: Decision to DC Catheter Urinary Catheter Date of Insertion: 05/05/21 Urinary Catheter Time of Insertion: 12:08 Date Urinary Catheter Removed: 05/06/21 Time Urinary Catheter Discontinued: 05:10 History History History 2 Term 1 Miscarriages/Ectopic 0 1 Living Children 3 Discharge Data Data Completed and Pending: Labs from last 24 hours 05/06/21 05/05/21 05:20 10:13 WBC 8.8 RBC 3.82 L Hgb 12.0 Hct 35.3 L MCV 92.4 MCH 31.4 MCHC 34.0 RDW 12.9 Plt Count 253 MPV 9.4 POC Glucose 149 H Vitals: Last Vital Signs Temp 97.5 F L 05/05/21 17:00 Pulse 74 05/06/21 04:30 Resp 16 05/06/21 04:30 BP 114/65 05/06/21 04:30 Pulse Ox 95 05/06/21 04:30 Discharge Plan Discharge Patient Disposition: Home Condition: Stable Prescriptions: New ibuprofen 800 mg tablet 800 mg PO TID PRN (Reason: pain) Qty: 60 RF: 0 hydrocodone-acetaminophen 5-325 mg tablet 1 tab PO Q4H PRN (Reason: pain) Qty: 20 RF: 0 Colace 100 mg capsule 100 mg PO BID Qty: 30 RF: 0 acetaminophen 325 mg capsule 325 mg PO Q4H PRN (Reason: fever or pain) Qty: 60 RF: 0 Continued aspirin [Adult Aspirin Regimen] 81 mg tablet,delayed release (DR/EC) 81 mg PO DAILY@2300 RF: 0 ondansetron HCl [Zofran] 4 mg tablet 4 mg PO Q6H PRN (Reason: Nausea) RF: 0 cyclobenzaprine 10 mg tablet 10 mg PO .po q hs Qty: 30 RF: 0 meloxicam [Mobic] 15 mg tablet 15 mg PO DAILY Qty: 30 RF: 0 fluticasone propion-salmeterol [Advair Diskus] 250-50 mcg/dose blister with device 1 inh inhalation BID Qty: 60 RF: 5 amlodipine 5 mg tablet 5 mg PO DAILY@2300 Qty: 90 RF: 0 nitroglycerin [Nitrostat] 0.4 mg tablet, sublingual 0.4 mg SUBLINGUAL Q5M PRN (Reason: Chest Pain) RF: 0 dicyclomine 10 mg capsule 10 mg PO Q6H PRN (Reason: CRAMPING) RF: 0 levocetirizine [Xyzal] 5 mg tablet 5 mg PO DAILY@2300 RF: 0 estradiol 0.01 % (0.1 mg/gram) cream 1 g vaginal .three times weekly Qty: 42.5 RF: 3 estradiol 2 mg tablet 2 mg PO DAILY@2300 Qty: 90 RF: 3 (DME) CareTouch Test Strip Strip See Rx Instructions .Route Qty: 300 RF: 3 losartan 50 mg tablet 50 mg PO BID@1100,2300 Qty: 180 RF: 0 albuterol sulfate [ProAir HFA] 90 mcg/actuation HFA aerosol inhaler 2 inh inhalation Q6H PRN (Reason: shortness of breath or wheezing) 90 Days Qty: 25.5 RF: 1 folic acid 1 mg tablet 1 mg PO DAILY@2300 Qty: 90 RF: 1 Januvia 100 mg tablet 100 mg PO DAILY Qty: 90 RF: 0 montelukast 10 mg tablet See Rx Instructions .ROUTE .COMPLEX Qty: 90 RF: 0 chlorthalidone 25 mg tablet See Rx Instructions .ROUTE .COMPLEX Qty: 90 RF: 0 atorvastatin 80 mg tablet 80 mg PO DAILY 90 Days Qty: 90 RF: 0 pantoprazole [Protonix] 40 mg tablet,delayed release (DR/EC) 40 mg PO DAILY RF: 0 Discharge Orders: Discharge Order (Routine); Ordered 05/06/21 Ordered By: Landry Maravilla Referrals: Landry Maravilla MD [Physician] - 05/24/21 1:00 pm (Your 2 week post-operative appointment is scheduled for 05/24/21 @1:00. Your 6 week post-operative appointment is scheduled for 06/14/21 @2:00. ) Discharge Diet: Soft Mechanical Discharge Activity: Limit activity as instructed Patient Instructions: Posterior Vaginal Repair (DC), OB Discharge Report, OB Food/Drug Interaction Guide, Opioid Safety Activity Restrictions/Additional Instructions: 1. Please call [facility] on next working day to make your post-operative appointment in 2 weeks. 2. Please stay home until you come back to the clinic on first post-operative check up. 3. Please follow instructions on your medications CAREFULLY. 4. If you have abdominal incision, do not cover it unless dressing is necessary because of drainage. OK to shower, but avoid bath. Leave steri-strips until they fall off. If they are still on one week after surgery, you may remove them. 5. If you had vaginal surgery or vaginal repair, Dr. Maravilla may instruct you to take SITZ bath. 6. Yellow, blood tinged odorous vaginal discharge is usually normal after hysterectomy or vaginal surgeries. 7. No sexual intercourse, tampons, or douches until you are completely released from the post-operative care. 8. Avoid constipation by eating right and maybe using some Metamucil or Milk of Magnesia. 9. All prescription refills are given during the working hours. Please do no wait till it runs out. Call the clinic at [phone] before your medication runs out. The clinic will get in touch with your doctor to prescribe medications if necessary. 10. Please remain within 40 mile radius from our hospital because emergencies do happen now and then during the post-operative period. 11. If you have stairs at home, take one step at a time slowly and minimize the number of trips. It helps to stay in one floor for the next few days. No lifting except what you can lift by one hand until you are released from the post-operative care. 12. Driving is discouraged until you are well healed. It may be 3-4 weeks before you feel strong enough to drive. You should be able to turn and look through the rear window without pain and you should be able to push the brake pedal very hard without pain before you drive. No fast rules, but SAFETY should be your primary concern. DO NOT drive if you are on sedating medications such as narcotics. 13. Call the clinic (during working hours) to make urgent appointment or go to the Emergency room, if any of the following occurs: i. Vaginal bleeding becomes heavy, more than a period. ii. Incision becomes red and sore, or drains pus. iii. Your temperature is over 100.4 or you have chill. iv. IV site becomes red and swollen (a little ``knot?? is usually OK) v. Persistent nausea and vomiting vi. Persistent constipation or diarrhea vii. Rash or allergic reaction to medications. 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
[2021-05-06 09:45] VITALS: BP 127/75; PULSE 81; RESP 17; TEMP 36.4; O2SAT 95
== END 2021-05-06 09:50 | disposition home or self-care (01) ==
LOC: OBGYN 14:24
PROVIDERS: Admitting Provider Obstetrics & Gynecology; PCP Family Medicine; Visit Provider Obstetrics & Gynecology
PROC: (CPT 57250; principal; 2021-05-05 10:55)
PROC: (CPT 57288; 2021-05-05 10:55)
DX: N81.6 Rectocele (principal); N39.3 Stress incontinence (female) (male); I10 Essential (primary) hypertension; E11.9 Type 2 diabetes mellitus without complications; E66.01 Morbid (severe) obesity due to excess calories; Z68.41 Body mass index [BMI] 40.0-44.9, adult; K21.9 Gastro-esophageal reflux disease without esophagitis; Z86.16 Personal history of COVID-19; Z87.891 Personal history of nicotine dependence
CPT/HCPCS: 57250; 57288; 36415; 36416; 51798; 80053; 81003; 82962; 85025; 85027; 86850; 86900; 93005; 96365; C1713; G0378; J0690; J1650; J1885; J2704; J3010; J3490; J7030; J7040; J8499

== ENCOUNTER → 2021-11-29 15:25 | Outpatient (BNVA) | payer MEDICARE, OTHER, SELFPAY | PROVIDERS: PCP Family Medicine; Visit Provider Family Medicine | DX: E11.9 Type 2 diabetes mellitus without complications (principal); F33.1 Major depressive disorder, recurrent, moderate | CPT/HCPCS: 80053; 83036; 85025 ==

== ENCOUNTER → 2022-04-04 08:47 | Outpatient (BNVA) | payer MEDICARE, OTHER, SELFPAY | PROVIDERS: PCP Family Medicine; Visit Provider Family Medicine | DX: E11.9 Type 2 diabetes mellitus without complications (principal) | CPT/HCPCS: 80053; 83036 ==

== ENCOUNTER → 2022-09-22 09:35 | Outpatient (BNVA) | payer MEDICARE, SELFPAY | PROVIDERS: PCP Family Medicine; Visit Provider Family Medicine | DX: E11.9 Type 2 diabetes mellitus without complications (principal); M79.641 Pain in right hand; M79.642 Pain in left hand | CPT/HCPCS: 80053; 80061; 82043; 83036; 85025; 85651; 86038; 86140; 86200; 86431 ==

== ENCOUNTER → 2022-12-06 11:13 | Outpatient (BNVA) | payer MEDICARE, OTHER, SELFPAY | PROVIDERS: PCP Family Medicine; Visit Provider Family Medicine | DX: E11.9 Type 2 diabetes mellitus without complications (principal) | CPT/HCPCS: 80053 ==

== ENCOUNTER 2023-02-07 11:09 | Outpatient (CLI) | payer MEDICARE, OTHER, SELFPAY ==
--- NOTE | 2023-02-07 11:12 | XRR_ITS ---
PROCEDURE INFORMATION: Exam: XR Lumbosacral Spine Exam date and time: 02/07/2023 12:04 PM Age: 67 years old Clinical indication: Low back pain and lumbago with sciatica; Left; Additional info: Acute low back pain with left sided sciatica TECHNIQUE: Imaging protocol: Radiologic exam of the lumbosacral spine. Views: 2 or 3 views. COMPARISON: CT abdomen pelvis w con* [id number] 01/09/2020 10:27 AM FINDINGS: Bones/joints: No fracture or other acute abnormality. There is a mild levocurvature. There is minimal anterolisthesis of L4 on L5 probably due to facet arthropathy. There is severe L2 disc space narrowing with subchondral sclerosis and small periarticular osteophytes. Moderate L5 disc space narrowing is seen. Soft tissues: Unremarkable. XR/XR lumbar spine 2-3V* [id number] IMPRESSION: Nonacute findings.
== END 2023-02-07 11:10 | disposition home or self-care (01) ==
PROVIDERS: PCP Family Medicine; Visit Provider Family Medicine
DX: M54.42 Lumbago with sciatica, left side (principal)
CPT/HCPCS: 72100

== ENCOUNTER → 2023-03-23 10:32 | Outpatient (BNVA) | payer MEDICARE, OTHER, SELFPAY | PROVIDERS: PCP Family Medicine; Visit Provider Family Medicine | DX: E11.9 Type 2 diabetes mellitus without complications (principal); L03.90 Cellulitis, unspecified; M54.42 Lumbago with sciatica, left side | CPT/HCPCS: 80053; 83036 ==

== ENCOUNTER 2023-04-26 14:08 | Outpatient (CLI) | payer MEDICARE, SELFPAY ==
--- NOTE | 2023-04-26 14:30 | MR_ITS ---
WS: [id number] MRI LUMBAR SPINE NONCONTRAST HISTORY: low back pain with left sided sciatica. COMPARISON: None available. TECHNIQUE: Sagittal and axial multisequence imaging is submitted. Mild cervical stenosis at C4-5, C5-6 and C6-7 due to disc and osteophyte disease. Increase in thoraci c kyphosis. Very slight anterolisthesis of L4 by 4 mm. Otherwise alignment is normal. Moderate disc space narrowi ng at L2-3. Remaining disc spaces are mildly narrowed and desiccated. No fractures. Conus terminates normally at L1-2 disc level. L1-L2: Bilateral moderate facet joint arthritis encroaching into the posterior lateral thecal sac. Ve ry mild narrowing of the subarticular recesses. L2-L3: Diffuse annular disc bulging with osteophytic ridging and moderate facet and ligamentum flavum arthritis. Moderate central, bilateral subarticular recess and mild foraminal stenosis. Most signifi cant encroachment upon the traversing L3 nerve roots. L3-L4: Diffuse annular disc bulging, osteophytic ridging with marked ligamentum flavum and facet arth ritis. Encroachment upon the thecal sac predominantly by facet joint arthritis. Severe central and bi lateral subarticular recess encroachment and mild foraminal stenosis. L4-L5: Annular disc bulging with marked facet joint arthritis. Fluid in the facet joints. Suspect the re is a small LEFT hemilaminectomy defect. There is encroachment and narrowing of the RIGHT subarticu lar recess affecting the traversing L5 nerve root. Mild central with bilateral subarticular recess st enosis. L5-S1: Mild diffuse annular disc bulging with facet joint arthritis encroaching upon the thecal sac. Facet osteophyte on the RIGHT touches the RIGHT S1 nerve root. Moderate RIGHT and mild LEFT foraminal stenosis. Mild bilateral S1 nerve root encroachment. IMPRESSION: 1. L4 anterolisthesis by 4 mm. 2. L2-3: Moderate central, bilateral subarticular recess and mild foraminal stenosis. Encroachment up on the traversing L3 nerve roots. 3. L3-4: Severe central, bilateral subarticular recess encroachment and mild foraminal stenosis. 4. L4-5: Encroachment and narrowing of the RIGHT subarticular recess affecting the traversing L5 nerv e root. Otherwise mild central with bilateral subarticular recess stenosis. 5. L5-S1: Moderate RIGHT and mild LEFT foraminal stenosis. Mild encroachment upon the S1 nerve roots bilaterally.
== END 2023-04-26 14:09 | disposition home or self-care (01) ==
LOC: RAD 14:12
PROVIDERS: PCP Family Medicine; Visit Provider Family Medicine
DX: M54.42 Lumbago with sciatica, left side (principal); M48.07 Spinal stenosis, lumbosacral region; M47.817 Spondylosis without myelopathy or radiculopathy, lumbosacral region
CPT/HCPCS: 72148

== ENCOUNTER → 2023-06-07 09:44 | Outpatient (BNVA) | payer MEDICARE, SELFPAY | PROVIDERS: PCP Family Medicine; Referring Provider Family Medicine; Visit Provider Anesthesiology Pain Medicine | DX: M54.42 Lumbago with sciatica, left side (principal); M43.16 Spondylolisthesis, lumbar region; M48.061 Spinal stenosis, lumbar region without neurogenic claudication; M48.07 Spinal stenosis, lumbosacral region | CPT/HCPCS: 99205 ==

== ENCOUNTER → 2023-06-08 13:56 | Outpatient (BNVA) | payer MEDICARE, SELFPAY | PROVIDERS: PCP Family Medicine; Visit Provider Orthopaedic Surgery | DX: M48.062 Spinal stenosis, lumbar region with neurogenic claudication (principal) | CPT/HCPCS: 99204 ==

== ENCOUNTER → 2023-06-22 10:58 | Outpatient (BNVA) | payer MEDICARE, SELFPAY | PROVIDERS: PCP Family Medicine; Visit Provider Family Medicine | DX: E11.9 Type 2 diabetes mellitus without complications (principal); Z13.6 Encounter for screening for cardiovascular disorders; L65.9 Nonscarring hair loss, unspecified; Z79.899 Other long term (current) drug therapy | CPT/HCPCS: 80053; 83036; 84443; 85025 ==

== ENCOUNTER → 2023-07-31 13:23 | Outpatient (BNVA) | payer MEDICARE, SELFPAY | PROVIDERS: PCP Family Medicine; Visit Provider Family Medicine | DX: Z01.818 Encounter for other preprocedural examination (principal) | CPT/HCPCS: 80053; 85025 ==

== ENCOUNTER 2023-08-04 14:56 | Observation (INO) | payer MEDICARE, SELFPAY ==
[2023-08-04] VITALS (13 sets, daily range): BP systolic 88–151; BP diastolic 52–98; PULSE 76–102; RESP 10–19; TEMP 35.8–37.2; O2SAT 94–100; BMI 36.9
--- NOTE | 2023-08-04 10:42 | W.PM.OPSUD ---
Surgery/Procedure H&P Update DATE OF PROCEDURE: August 04, 2023 DATE H&P PERFORMED: 07/31/23 H&P UPDATE INFORMATION: I have reviewed H&P completed within last 30 days, I have examined patient prior to procedure and No changes to prior documentation PLANNED PROCEDURE: Operation Date: 08/04/23 12:10 Proposed Procedures p L2-3, L3-4, L4-5 OPEN Lumbar Spine Decompression/ : [L2-L3 laminectomy [id number](Not Applicable) - Braydon Carroll, DO
[2023-08-04 11:53] LABS: Glucose Point of Care 144 mg/dL (70-110)
[2023-08-04] MEDS: metoclopramide 5 mg/mL SDV 2 mL 10 MG IVP (12:03)
[2023-08-04] MEDS: famotidine 20 mg/2 mL INJ IVP (12:03)
[2023-08-04] MEDS: citric acid-sodium citrate 30 mL UDC PO (12:04)
[2023-08-04] MEDS: sodium chloride 0.9% 1,000 ML 30 ML IV (12:04)
[2023-08-04] MEDS: ondansetron 2 mg/ML SDV 2 mL 4 MG IVP (12:04)
--- NOTE | 2023-08-04 12:13 | P.ANESASSM_ITS ---
Pre-Anesthetic Assessment Height/Weight: Height 1.7 m Weight 107.048 kg Temp Pulse Resp BP Pulse Ox O2 Del Method 96.5 F L 84 18 151/98 97 Room Air 08/04/23 11:22 08/04/23 11:22 08/04/23 11:22 08/04/23 11:22 08/04/23 11:22 08/04/23 11:22 Operation Date: 08/04/23 12:10 Proposed Procedures p L2-3, L3-4, L4-5 OPEN Lumbar Spine Decompression/ : [L2-L3 laminectomy [id number](Not Applicable) - Braydon Carroll, Familial anesthetic complications: Patient had shakes after her knee scope and stayed 3-4 hrs for this outpatient procedure. 5 years ago she then had knee replacement. It seems as though in the recovery room the patient had symptoms of seizure or stroke. Her was brought back to the recovery room and was told she's either had a seizure or a stroke. He described a procedure happening that was most likely a central line and she had to go to ICU and they intubated her. She talked about having a rash all over her body. They ruled out stroke at the hospital. She said it may have been allergic reaction and hospital told her there was no way to know which drug caused it as she received 27 different medications during her visit. has since had propofol and spinal and done well. Will give benadryl, patient informed of risk of reaction since we don't know what caused it. Will avoid aminosteroid NMBS in favor of succinylcholine Was Beta Javi taken within 24 hours: N/A Was Clonidine taken within 24 hours: N/A Last intake: Intake Last Liquid Date 08/03/23 Last Liquid Time 23:30 Last Solid Date 08/03/23 Last Solid Time 21:30 Social No alcohol and No tobacco Exam alert, oriented x 3, clear to auscultation bilaterally and regular rate & rhythm Airway Mallampati: Class III Dentition: chipped CV/HEM Stable Angina and Hypertension GI Gastroesophageal Reflux Disease Metabolic Diabetes Mellitus and Morbid Obesity Anesthetic Plan ASA status: 3 Anesthesia: General Risk of > 500 ml blood loss (7ml/kg in children): No Other Pertinent Information Patient nauseated this morning, vomited bile this AM and dry heaved in pre-op. No fever, no sick contacts. Patient states she frequently has abdominal distress. Gave bicitra, pepcid, regland and will RSI with Succinylcholine Medications/Allergies Home Medications Medication Instructions Recorded Confirmed Last Taken Type dicyclomine 10 mg capsule 10 mg PO Q6H PRN CRAMPING 06/07/19 08/04/23 08/03/23 History levocetirizine 5 mg tablet (Xyzal) 5 mg PO DAILY@2300 06/07/19 08/04/23 08/03/23 History nitroglycerin 0.4 mg sublingual 0.4 mg sublingual Q5M PRN Chest 06/18/19 08/04/23 03/16/20 History tablet (Nitrostat) Pain aspirin 81 mg tablet,delayed 81 mg PO DAILY@2300 02/18/20 08/04/23 07/31/23 History release (Adult Aspirin Regimen) acetaminophen 325 mg capsule 325 mg PO Q4H PRN fever or pain 05/06/21 08/04/23 08/03/23 Rx #60 caps docusate sodium 100 mg capsule 100 mg PO BID 05/24/21 08/04/23 08/03/23 History (Colace) ipratropium bromide 42 mcg (0.06 2 spray intranasal TID PRN allergy 04/21/22 08/04/23 1 Month Ago Rx %) nasal spray symptoms #15 mL ~07/06/23 CPAP mask, tubing and supplies #1 ea 06/16/22 08/04/23 08/03/23 Rx estradiol 2 mg tablet 2 mg PO DAILY@2300 #90 tabs 09/22/22 08/04/23 08/03/23 Rx one touch verio flex test strips #100 ea 09/22/22 08/04/23 08/03/23 Rx pantoprazole 40 mg tablet,delayed 40 mg PO DAILY 90 days #90 tabs 09/22/22 08/04/23 08/03/23 Rx release (Protonix) tizanidine 4 mg tablet 4 mg PO Q8H PRN muscle spasticity 02/07/23 08/04/23 1 Month Ago Rx #90 tabs ~07/06/23 blood sugar diagnostic (Blood #50 ea 03/23/23 08/04/23 08/03/23 Rx Glucose Test strips) blood-glucose meter #1 ea 11/02/0408/04/23 08/03/23 Rx meloxicam 15 mg tablet 15 mg PO DAILY #90 tabs 03/23/23 08/04/23 07/31/23 Rx blood sugar diagnostic (CareTouch #300 ea 03/24/23 08/04/23 08/03/23 Rx Test Strip) lancets 25 gauge #100 ea 03/24/23 08/04/23 08/03/23 Rx atorvastatin 80 mg tablet 80 mg PO DAILY #90 tabs 06/22/23 08/04/23 08/03/23 Rx oxycodone-acetaminophen 5 mg-325 1 tab PO TID PRN pain 30 days #90 06/22/23 08/04/23 1 Week Ago Rx mg tablet (Percocet) tabs ~07/28/23 amlodipine 5 mg tablet 5 mg PO DAILY 08/04/23 08/04/23 08/03/23 History canagliflozin 300 mg tablet 300 mg PO DAILY 08/04/23 08/04/23 08/03/23 History (Invokana) chlorthalidone 25 mg tablet 25 mg PO DAILY 08/04/23 08/04/23 08/03/23 History losartan 50 mg tablet 50 mg PO BID 08/04/23 08/04/23 08/03/23 History montelukast 10 mg tablet 10 mg PO DAILY 08/04/23 08/04/23 08/03/23 History Allergies Allergy/AdvReac Type Severity Reaction Status Date / Time latex Allergy Intermediate rash Verified 08/04/23 11:11 cortisone Allergy shortness Verified 08/04/23 11:11 of breath Current Medications Generic Name Dose Route Start Last Admin Trade Name Freq PRN Reason Stop Dose Admin Sodium Chloride 1,000 mls @ 30 mls/hr 08/04/23 11:15 08/04/23 12:04 Sodium Chloride 0.9% IV 08/05/23 11:14 30 mls/hr .Q24H NANCY Administration Ondansetron HCl 4 mg 08/04/23 11:11 08/04/23 12:04 Ondansetron 2 Mg/Ml Sdv 2 Ml IVP 4 mg Q5M PRN Administration NAUSEA AND VOMITING PFSH Anesthesia Medical History Aftercare following surgery of the genitourinary system History of COVID-19 Bile reflux gastritis Type 2 diabetes mellitus, without long-term current use of insulin GERD (gastroesophageal reflux disease) Hyperlipidemia Essential hypertension Depression Surgical History History of suburethral sling procedure 05/05/2021- SIS, posterior colporrhaphy performed by Dr. Maravilla at [facility] History of total abdominal hysterectomy and bilateral salpingo-oophorectomy (~2000) performed in [place]; due to fibroid Status post colonoscopy (~03/2020) Diverticulosis sigmoid colon H/O esophagogastroduodenoscopy (~03/2020) S/p bilateral carpal tunnel release S/P appendectomy S/P cholecystectomy S/P discectomy lumbar Status post total knee replacement, left S/P breast augmentation (~2002) saline Family History Family/Other Thyroid disease Maternal Aunt Cancer prostate Family/Other Thyroid disease Paternal Niece Mother Heart disease Atrial fibrillation Diabetes Brother Atrial fibrillation Hypertension Cancer throat and tongue Father Cancer Lung CA Other CAD (coronary artery disease) Stroke Denies family history of Colon cancer Ovarian cancer Hypercholesteremia Anesthesia complication Bleeding disorder Social History Smoking and tobacco/nicotine status: former use of tobacco/nicotine Alcohol intake: current Alcohol intake frequency: holidays/special occasions only Substance/Drug Use: never Data Anesthesia Cardiac Studies: No Data to Display
--- NOTE | 2023-08-04 12:15 | XR_ITS ---
WS: [id number] Exam: XR lumbar spine 1V [id number] Date/Time of Exam: 08/04/2023 12:15 PM Reason For Exam: OR PIC DONE 08/04/23 Anterior posterior intraoperative C-arm images of the lower lumbar spine are submitted for evaluation . Images were obtained for intraoperative and localization purposes.
[2023-08-04] MEDS: diphenhydrAMINE 50 mg/mL SDV 1mL 25 MG IVP (12:19)
[2023-08-04] MEDS: ceFAZolin 2,000 MG in sodium chloride 0.9% (plus) 50 ML 100 MG IV ×2 (12:42→21:01)
[2023-08-04] MEDS: lidocaine-epi 1% 20 mL INJ INJECTION (13:40)
[2023-08-04] MEDS: vancomycin 1,000 MG SDV 1000 MG XX (13:41)
[2023-08-04] MEDS: thrombin 5,000 unit SDV 5000 UNIT XX (13:41)
--- NOTE | 2023-08-04 15:00 | P.OP_ITS ---
Operative Report Date of procedure: August 04, 2023 Pre-op diagnosis: Lumbar stenosis with neurogenic claudication Post-op diagnosis: same Procedure done: 1. L2-3 laminectomy with partial facetectomies 2. L3-4 laminectomy with partial facetectomies 3. L4-5 laminectomy with partial facetectomies 4. Revision laminectomy at L4-5 Surgeon: Braydon Carroll DO Estimated blood loss (mL): 150 Procedure: 1. L2-3 laminectomy with partial facetectomies 2. L3-4 laminectomy with partial facetectomies 3. L4-5 laminectomy with partial facetectomies 4. Revision laminectomy at L4-5 Patient brought to the op suite after undergoing anesthesia was placed in the prone position. All areas impingement well-padded patient's prepped draped normal sterile fashion. She was brought in to determine the levels. The once this was done the incision was made from L2 down to the bottom of L5. Subperio steal dissection was made from the spinous process of to the facets of L2-3, L3- 4, and L4-5. Next attention was brought to the L4-5 level first. The spinous process was taken off with a rongeur. As well as part of the laminectomy. The lamina and medial aspects of facet joints bilaterally were taken down with a high-speed bur. The Kerrison rongeur was then used to take down the remaining lamina and then the medial aspect of the facet joints. The ligamentum flavum was taken down from the lamina of L for to the lamina of L5. Once was completed the L4 nerve root traced out the L4-5 facet. And the L V nerve was traced around the L5 pedicles. There was scar tissue at this level from the previous laminectomy. Next tension was brought to the L3 lamina. The spinous process was taken off using again a rongeur. High-speed bur was used to take down the lamina as well as the medial aspect of facet joints. The ligamentum flavum was taken down from L3-L4. And then the medial aspect of the joints were taken down. Once dissection was complete and lamina and medial aspect of facet joints taken down the L III nerve was traced out the L3-4 foramen and the L4 nerve was traced around the L4 pedicles. Next tension was brought to the L2 lamina. The spinous process was taken down the high-speed bur was used to take down the lamina and medial aspects of the facet joints. The Kerrison rongeur was then used to finish out the remaining laminectomy as well as the medial aspect of facet joints. The ligament flavum was taken down from L2 to to L3. The L2 nerve root was then traced out the L2-3 foramen and the L3 nerve transfer on the L3 pedicle. AP fluoroscopy ensured that the laminectomies were done at the appropriate levels and saved. Wounds were irrigated and vancomycin powder was placed deep drain was placed in the wound was closed in layered fashion with 0 Vicryl 2-0 Vicryl and Monocryl suture. Sterile dressings were applied patient transferred to PACU in stable addition.
[2023-08-04] MEDS: fentaNYL 50 mcg/mL INJ 2mL IVP (15:25)
--- NOTE | 2023-08-04 15:50 | ANE.PACU2 ---
Inpatient post-anesthesia follow up: Airway intact: Yes Vital signs: Temperature 98.3 F Pulse Rate 74 Respiratory Rate 17 Blood Pressure 118/77 Pulse Oximetry 93 Oxygen Delivery Me thod Room Air Oxygen Flow Rate Fraction of Inspir ed Oxygen Hydration adequate: Yes Nausea and vomiting: No Pain level: 1 Mental status: Baseline
--- NOTE | 2023-08-04 16:02 | P.PCN_ITS ---
PACU note Narrative: VSS, Good respiratory effort, report to JOB SPOTTER Exam: awake
--- NOTE | 2023-08-04 16:02 | PM.PACU ---
PACU note Narrative: VSS, Good respiratory effort, report to MEDICAL STAFF SERVICES COORDINATOR Exam: awake
[2023-08-04] MEDS: HYDROcodone-acetaminophen 5-325 mg Tablet 1 TAB PO (18:19)
[2023-08-04] MEDS: tizanidine 4 mg Tablet PO (21:06)
[2023-08-04] MEDS: morphine 4 mg/mL SDV 1 mL 2 MG IVP (21:08)
[2023-08-04 21:14] LABS: Glucose Point of Care 170 mg/dL (70-110)
[2023-08-04] MEDS: insulin lispro 100 unit/1 mL SUBCUT (21:21)
[2023-08-05] VITALS (9 sets, daily range): BP systolic 97–157; BP diastolic 63–90; PULSE 71–81; RESP 16–20; TEMP 36.5–36.8; O2SAT 92–96
[2023-08-05] MEDS: sodium chloride 0.9% 500 ML 999 ML IV (02:38)
[2023-08-05] MEDS: sodium chloride 0.9% 1,000 ML 80 ML IV ×2 (02:38→17:26)
[2023-08-05] MEDS: ceFAZolin 2,000 MG in sodium chloride 0.9% (plus) 50 ML 100 MG IV (03:16)
[2023-08-05] MEDS: HYDROcodone-acetaminophen 5-325 mg Tablet 1 TAB PO ×3 (03:17→14:43)
[2023-08-05 06:30] LABS: Glucose Point of Care 144 mg/dL (70-110)
--- NOTE | 2023-08-05 08:02 | PM.DCS ---
Discharge Providers Date of Admission: 08/04/23 14:56 Date of Discharge: August 05, 2023 Attending Provider at Admission: Braydon Carroll DO Attending Provider at Discharge: Braydon Carroll DO Primary Care Provider: Jelly Patel DO Reason for Visit Reason for Visit: M48.062 Physical Exam Narrative: Numbness in the left foot is improved. She has been up to the bathroom will get her up with physical therapy before she leaves. Urinary Catheter Management: Hernandez Latex Free: Cath Placed During This Visit: yes, but has since been removed by the nurse Urinary Catheter Date of Insertion: 08/04/23 Urinary Catheter Time of Insertion: 12:55 Date Urinary Catheter Removed: 08/04/23 Time Urinary Catheter Discontinued: 15:05 Discharge Data Studies Completed and Pending Pending at discharge Category Date Time Status C-arm Fluoroscopy 19640 Routine Exams 08/04/23 11:11 Ordered Laboratory Results POC Glucose 144 mg/dL (70-110) H 08/05/23 06:24 Vitals Last Vital Signs Temp 98.2 F 08/05/23 07:44 Pulse 71 08/05/23 07:44 Resp 17 08/05/23 07:44 BP 129/87 08/05/23 07:44 Pulse Ox 95 08/05/23 07:44 O2 Del Method Room Air 08/05/23 07:44 Discharge Plan Discharge Patient Disposition: Home Condition: Stable Prescriptions: New oxycodone-acetaminophen 5-325 mg tablet 1 tab PO Q4H PRN (Reason: pain) 7 Days Qty: 40 0RF Continued aspirin [Adult Aspirin Regimen] 81 mg tablet,delayed release (DR/EC) 81 mg PO DAILY@2300 Colace 100 mg capsule 100 mg PO BID nitroglycerin [Nitrostat] 0.4 mg tablet, sublingual 0.4 mg SUBLINGUAL Q5M PRN (Reason: Chest Pain) dicyclomine 10 mg capsule 10 mg PO Q6H PRN (Reason: CRAMPING) Hold Instructions: Adverse Reaction levocetirizine [Xyzal] 5 mg tablet 5 mg PO DAILY@2300 Hold Instructions: Adverse Reaction tizanidine 4 mg tablet 4 mg PO Q8H PRN (Reason: muscle spasticity) Qty: 90 0RF (DME) one touch verio flex test strips See Rx Instructions .Route .MEDSUPPLY Qty: 100 5RF Rx Instructions: for use in testing once daily ipratropium bromide 42 mcg (0.06 %) spray,non-aerosol 2 spray intranasal TID PRN (Reason: allergy symptoms) Qty: 15 0RF Hold Instructions: Adverse Reaction Rx Instructions: administer into each nostril (DME) blood-glucose meter Misc See Rx Instructions .MEDSUPPLY Qty: 1 0RF Rx Instructions: As directed (DME) Blood Glucose Test Strip See Rx Instructions .MEDSUPPLY Qty: 50 5RF Rx Instructions: As directed meloxicam 15 mg tablet 15 mg PO DAILY Qty: 90 1RF atorvastatin 80 mg tablet 80 mg PO DAILY Qty: 90 1RF (DME) CPAP mask, tubing and supplies See Rx Instructions .Route .MEDSUPPLY Qty: 1 0RF Rx Instructions: As directed estradiol 2 mg tablet 2 mg PO DAILY@2300 Qty: 90 1RF pantoprazole [Protonix] 40 mg tablet,delayed release (DR/EC) 40 mg PO DAILY 90 Days Qty: 90 1RF (DME) lancets 25 gauge misc See Rx Instructions .MEDSUPPLY Qty: 100 5RF Rx Instructions: As directed (DME) CareTouch Test Strip Strip See Rx Instructions .Route Qty: 300 3RF Rx Instructions: ONCE DAILY acetaminophen 325 mg capsule 325 mg PO Q4H PRN (Reason: fever or pain) Qty: 60 0RF chlorthalidone 25 mg tablet 25 mg PO DAILY Rx Instructions: TAKE 1 TABLET BY MOUTH DAILY AT 11 PM amlodipine 5 mg tablet 5 mg PO DAILY Rx Instructions: TAKE 1 TABLET DAILY AT 11PM Invokana 300 mg tablet 300 mg PO DAILY Rx Instructions: TAKE ONE TABLET BY MOUTH every morning losartan 50 mg tablet 50 mg PO BID Rx Instructions: TAKE 1 TABLET TWICE A DAY AT 11:00AM AND 11:00PM montelukast 10 mg tablet 10 mg PO DAILY Rx Instructions: TAKE 1 TABLET BY MOUTH DAILY Discontinued oxycodone-acetaminophen [Percocet] 5-325 mg tablet 1 tab PO TID PRN (Reason: pain) 30 Days Qty: 90 0RF Discharge Orders: Discharge Order (Routine); Ordered 08/05/23 Ordered By: Braydon Carroll Discharge Diet: Advance as tolerated Discharge Activity: Limit activity as instructed Patient Instructions: Opioid Safety Activity Restrictions/Additional Instructions: Thank you for [facility] for your care! The following is a list of instructions, from your provider, to follow upon your discharge to ensure you have the optimal recovery from your recent injury orsurgery. Follow-up care is a car part of your treatment and safety. Be sure to make and go to all appointments, and call your doctor if you are having problems. If you do not already have a follow-up appointment made, call Dr. Carroll office in the next 1-3 days to make follow up appointment for 1-2 weeks at [phone]. It is also a good idea to know your test results and keep a list of the medicines you take. Medications will be prescribed for you at your provider's discretion. These medications are to be used as instructed; if they are taken more often that prescribed they will not be refilled early and in most cases will not be refilled at all. > When a refill is needed,you should contact serge bush 2-3 business days before your prescription runs out. Medications will NOT be refilled by nutrition coordinator providers after hours! > Many pain medications contain Tylenol (Acetaminophen). Do not consume more than 4,000 mg of Tylenol per day in total with any combination ofmedications. > Pain medications can cause constipation. Please use an over the counter stool softener as directed, while taking pain medications. Consulty our local pharmacist with questions or recommendations on stool softeners. If constipation persists, contact our office or your primary care provider. > While under our care,you are not to receive pain medications or other controlled substances from any other provider unless our office is notified and approves. Any attempts to do so will result in refusal to prescribe any further pain medications and possible dismissal from our practice. ? Your wound and/or dressing should remain clean and dry for 2 days after surgery. On postoperative day 2 (48 hours after your surgery) the dressing (if present) should be removed and it is okay to shower and get the incision wet. Pad dry afterwards. No further dressing should be required from that point on. Do not put any creams or ointments on theincision > It is normal for there to be a small amount of discharge (bloody or blood tinged) present from a surgical wound for the first 1-3days. > The wound should be examined twice a day for signs of infection. Mild redness or bruising is to be expected but indications that an infection maybe starting would include; An increase in redness, swelling, or discharge, a foul odor present around the incision, and/or a fever greater than 101 ?F ? Showering is permitted, however we ask that you do not take a bath, sit in a whirlpool / Jacuzzi, or go swimming for 1 month. For only the first 2 days after surgery, lt wilt be necessary for you to cover your wound/dressing with plastic and tape to keep it dry. ? Walking is essential for the healing process after surgery. We would like you to slowly advance your walking. This should be done on relatively flat clear ground (inside or out) or can be done on a treadmill. Remember this goal does not have to happen all at once, slowly increase your distance and duration. This can be broken into more more than one walk per day as tolerated. Patients who walk as directed after surgery rarely require Physical Therapy. In the unlikely event this issue arises your provider will direct hospital staff to make the appropriate arrangements. ? No lifting over 5 pounds {a gallon of milk) or bending/twisting until further notice. Each of these activities places an unnecessary amount of stress onto the body and can impede the delicate healing process. > Instead of bending at the waist, keep your back straight and bend at the knees. > Instead of twisting your torso, keep your back straight and turn your entire body with your feet. ? You may sleep in any position which makes you comfortable. Many patients find comfort sleeping in a reclining chair. It is not abnormal to have difficulty sleeping for the first several weeks following your surgery. We recommend trying Benadry! or Tylenol PM as directed to help with your sleeping difficulties. Both medications are over the counter and available withoutprescription. ? NO SMOKING!!! Smoking dramatically increases the probability of developing postoperative wound infections. ? Common complaints after lumbar and/or thoracic spine surgery include, but are not limited to: numbness and/or tingling in the legs, pain around the incision and surrounding tissues, muscle spasms, or stiffness of the middle to low back. Contact our office if these symptoms persist or if an acute change occurs. ? No driving for the first 3-5days, and not while taking narcotics until seen at your follow-up appointment and cleared. There are no restrictions for riding on short trips, however if you take a longer trip, arrangements should be made to make regular stops to get out of the vehicle and stretch . ? Swelling is an unfortunate event that will take place with any surgery and is the primary source of your postoperative discomfort. While walking and regular approved activities helps control inflammation, there are additional steps you can take to minimizeswelling. > Place ice over the surgical site and surrounding tissue for twenty minutes, followed by applying a low/medium heat (heating pad) for an additional twenty minutes every 1-2 hours as needed for painrelief. > You may use of over the counter anti-inflammatory medications (Ibuprofen, Motrin, Aleve, Advil, etc) as directed on the package label. These types of medicines wm significantly reduce the amount of discomfort you experience after surgery from swelling. It should be noted that if you have and allergy to any of these medications, or a history of ulcers or kidney disease you should consult you primary care provider prior to starting these medications. Discharge Attestations Time Spent in Discharge Care*: less than 30 min Quality Metrics Clinical Quality Measures [ No reported AMI, CVA or VTE this stay] Coding Level of Care Code Acute Code for Chg Fwd
[2023-08-05] MEDS: pantoprazole DR 40 mg Tablet PO (08:39)
[2023-08-05] MEDS: atorvastatin 40 mg Tablet 80 MG PO (08:39)
[2023-08-05] MEDS: meloxicam 7.5 mg tablet 15 MG PO (08:39)
[2023-08-05] MEDS: montelukast sodium 10 mg Tablet PO (08:39)
[2023-08-05] MEDS: amlodipine 5 mg Tablet PO (08:40)
[2023-08-05] MEDS: docusate sodium 100 mg Capsule PO ×2 (08:40→17:23)
[2023-08-05] MEDS: losartan 50 mg Tablet PO ×2 (08:40→17:23)
[2023-08-05] MEDS: chlorthalidone 25 mg Tablet PO (08:41)
[2023-08-05] MEDS: insulin lispro 100 unit/1 mL SUBCUT ×3 (10:48→21:23)
[2023-08-05 10:53] LABS: Glucose Point of Care 170 mg/dL (70-110)
[2023-08-05] MEDS: oxyCODONE-APAP 5-325 mg Tablet 1 TAB PO ×2 (11:15→21:33)
[2023-08-05 16:45] LABS: Glucose Point of Care 170 mg/dL (70-110)
[2023-08-05 21:14] LABS: Glucose Point of Care 146 mg/dL (70-110)
[2023-08-06] VITALS: BP 143/66; PULSE 99; RESP 20; O2SAT 97
--- NOTE | 2023-08-06 00:34 | PC.NURSE ---
Addendum entered by Anne Gold RN 08/06/23 06:13: This nurse was to call patient to notify of fall. Patient refused call and did not want notified. Original Note: At 0000 patient found on floor. Patient stated she was reaching for walker to get out of bed and it slid and fell on floor. Patient does have a bruise on head, no complaints of any new pain. Physician notified and no new orders given.
[2023-08-06] MEDS: ondansetron 4 MG Tablet PO ×2 (00:40→08:57)
[2023-08-06] MEDS: dicyclomine 10 mg Capsule PO ×2 (00:46→08:57)
[2023-08-06 04:27] VITALS: BP 127/80; PULSE 72; RESP 16; TEMP 37.2; O2SAT 95
[2023-08-06 06:39] LABS: Glucose Point of Care 130 mg/dL (70-110)
[2023-08-06 07:32] VITALS: BP 118/77; PULSE 74; RESP 17; TEMP 36.8; O2SAT 93
--- NOTE | 2023-08-06 07:48 | PM.PN ---
Subjective Subjective: Patient fell yesterday but feels like she is sore nothing is broken. This point she wants to go home. Vitals/I&O/Wt Last Vital Signs Temp 98.3 F 08/06/23 07:32 Pulse 74 08/06/23 07:32 Resp 17 08/06/23 07:32 BP 118/77 08/06/23 07:32 Pulse Ox 93 08/06/23 07:32 O2 Del Method Room Air 08/06/23 07:32 08/05/23 08/06/23 08/06/23 22:59 06:59 14:59 Intake Total 1240 / 2550 Output Total 900 / 900 Balance 1240 / 2550 -900 / 1650 Weight last 48 hrs Weight 237 lb 5 oz Weight 237 lb Weight 236 lb Physical Exam Narrative: Patient 5 5 strength bilateral lower extremities Urinary Catheter Management: Hernandez Latex Free: Cath Placed During This Visit: yes, but has since been removed by the nurse Urinary Catheter Date of Insertion: 08/04/23 Urinary Catheter Time of Insertion: 12:55 Date Urinary Catheter Removed: 08/04/23 Time Urinary Catheter Discontinued: 15:05 A&P Assessment and plan (1) Status post lumbar laminectomy: Postop day #2 3 level laminectomy. At this point patient will discharge home today. Attestations Medical Necessity Statement*: Discharge home today Coding Level of Care Code Acute Code for Chg Fwd Diagnoses Status post lumbar laminectomy Z98.890
--- NOTE | 2023-08-06 07:51 | PM.PN ---
Subjective Subjective: This is a progress note for 08/05/2023. Patient was post go home yesterday I saw her and plan was for her to go however she was having stomach pains and they kept her in the hospital. Vitals/I&O/Wt Last Vital Signs Temp 98.3 F 08/06/23 07:32 Pulse 74 08/06/23 07:32 Resp 17 08/06/23 07:32 BP 118/77 08/06/23 07:32 Pulse Ox 93 08/06/23 07:32 O2 Del Method Room Air 08/06/23 07:32 08/05/23 08/06/23 08/06/23 22:59 06:59 14:59 Intake Total 1240 / 2550 Output Total 900 / 900 Balance 1240 / 2550 -900 / 1650 Weight last 48 hrs Weight 237 lb 5 oz Weight 237 lb Weight 236 lb Physical Exam Urinary Catheter Management: Hernandez Latex Free: Cath Placed During This Visit: yes, but has since been removed by the nurse Urinary Catheter Date of Insertion: 08/04/23 Urinary Catheter Time of Insertion: 12:55 Date Urinary Catheter Removed: 08/04/23 Time Urinary Catheter Discontinued: 15:05 Attestations Medical Necessity Statement*: Pain control Coding Level of Care Code Acute Code for Chg Fwd
[2023-08-06 08:47] VITALS: BP 118/77
[2023-08-06] MEDS: chlorthalidone 25 mg Tablet PO (08:47)
[2023-08-06] MEDS: amlodipine 5 mg Tablet PO (08:47)
[2023-08-06] MEDS: losartan 50 mg Tablet PO (08:47)
[2023-08-06] MEDS: pantoprazole DR 40 mg Tablet PO (08:48)
[2023-08-06] MEDS: HYDROcodone-acetaminophen 5-325 mg Tablet 1 TAB PO (08:48)
[2023-08-06] MEDS: atorvastatin 40 mg Tablet 80 MG PO (08:48)
[2023-08-06] MEDS: montelukast sodium 10 mg Tablet PO (08:48)
[2023-08-06] MEDS: meloxicam 7.5 mg tablet 15 MG PO (08:48)
[2023-08-06] MEDS: docusate sodium 100 mg Capsule PO (08:48)
[2023-08-06 10:40] LABS: Glucose Point of Care 186 mg/dL (70-110)
[2023-08-06 11:17] VITALS: BP 119/79; PULSE 73; RESP 18; O2SAT 96
[2023-08-06 12:02] VITALS: RESP 15
[2023-08-06] MEDS: oxyCODONE-APAP 5-325 mg Tablet 1 TAB PO (12:02)
[2023-08-06] MEDS: insulin lispro 100 unit/1 mL SUBCUT (12:02)
--- NOTE | 2023-08-06 12:35 | PC.NURSE ---
Discharge delay- patient is waiting for to arrive for her pickup.
== END 2023-08-06 13:15 | disposition home or self-care (01) ==
LOC: MEDSURG 14:57
PROVIDERS: Admitting Provider Orthopaedic Surgery; PCP Family Medicine; Visit Provider Orthopaedic Surgery
PROC: (CPT 63005; principal; 2023-08-04 12:00)
DX: M48.062 Spinal stenosis, lumbar region with neurogenic claudication (principal); I10 Essential (primary) hypertension; K21.9 Gastro-esophageal reflux disease without esophagitis; E11.9 Type 2 diabetes mellitus without complications; E66.01 Morbid (severe) obesity due to excess calories; Z68.37 Body mass index [BMI] 37.0-37.9, adult; Z86.16 Personal history of COVID-19; E78.5 Hyperlipidemia, unspecified; Z87.891 Personal history of nicotine dependence
CPT/HCPCS: 63047; 63048 ×2; 36416; 51702; 72020; 76000; 82962; 96372; 97116; 97162; 97530; G0378; J0690; J1200; J1815; J2270; J2405; J2704; J2765; J3010; J3370; J3490; J7030; J7040; Q0162

== ENCOUNTER → 2023-08-15 08:26 | Outpatient (BNVA) | payer MEDICARE, SELFPAY | PROVIDERS: PCP Family Medicine; Visit Provider Orthopaedic Surgery | DX: Z98.890 Other specified postprocedural states (principal) | CPT/HCPCS: 99024 ==

== ENCOUNTER → 2023-08-24 08:40 | Outpatient (BNVA) | payer MEDICARE, SELFPAY | PROVIDERS: PCP Family Medicine; Visit Provider Orthopaedic Surgery | DX: Z98.890 Other specified postprocedural states (principal) | CPT/HCPCS: 99024 ==

== ENCOUNTER → 2023-09-07 08:10 | Outpatient (BNVA) | payer MEDICARE, SELFPAY | PROVIDERS: PCP Family Medicine; Visit Provider Orthopaedic Surgery | DX: Z98.890 Other specified postprocedural states (principal) | CPT/HCPCS: 99024 ==

== ENCOUNTER 2023-09-07 14:17 | Inpatient (IN) | payer MEDICARE, SELFPAY ==
--- NOTE | 2023-09-07 13:33 | MR_ITS ---
WS: [id number] MRI LUMBAR SPINE NONCONTRAST TECHNIQUE: Sagittal T1, T2 and STIR imaging. Axial T1 and T2 imaging. CLINICAL INFORMATION: Post op COMPARISON: MRI 04/26/2023 FINDINGS: Postoperative changes are new from previous with laminectomy defects at L4 and L4-L5 with spinal ping l decompression. Spinal canal stenosis significant improved compared to previous. Lobulated fluid and blood products in the laminectomy defects mild mass effect on the dorsal thecal sac. No significant central canal stenosis. Additional small fluid collection in the subcutaneous soft tissues with small connections to the deeper laminectomy site collection. No intraspinal or epidural collections. L1-L2: Mild annular bulging. Mild facet arthropathy. Spinal canal and foramen are patent. L2-L3: Mild disc osteophyte complex with endplate ridging. Mild central canal stenosis with narrowing of the subarticular recess bilaterally. Foramen are patent. L3-L4: Slight anterolisthesis. Mild disc bulging with a tiny central protrusion and annular fissure. Spinal canal has been decompressed. Mild facet arthropathy. Foramen are patent. L4-L5: Mild annular bulging. Slight narrowing of the RIGHT greater than LEFT subarticular recess. Mod erate facet arthropathy. Mild RIGHT foraminal narrowing. Spinal canal has been decompressed. L5-S1: Mild disc osteophyte complex with endplate ridging. Slight effacement of the ventral thecal sa c. Moderate facet arthropathy. Mild bilateral foraminal narrowing. Visualized pelvic bony structures: Normal. Paravertebral soft tissues: Normal. No evidence of paravertebral or psoas abscess. IMPRESSION: 1. Decompressive laminectomies L3-L4 and L4-L5 new compared to previous with decompression of the sp inal canal stenosis. 2. Lobulated fluid collection within the laminectomy defects with some heterogeneity like represents postoperative seroma and hematoma. Mild mass effect on the dorsal thecal sac without significant luisana nosis. No intraspinal or epidural collections. 3. Subcutaneous fluid collection likely seroma along the incision site with small channels connectin g to the laminectomy collection along the surgical corridor. Superimposed infection of the fluid quinn ections is not excluded. Recommend correlation with infectious symptoms and overlying cellulitis. 4. No evidence of paravertebral or psoas abscess.
[2023-09-07 14:28] VITALS: BMI 37.5
[2023-09-07 17:07] LABS: Glucose Point of Care 141 mg/dL (70-110)
[2023-09-07] MEDS: docusate sodium 100 mg Capsule PO (17:17)
[2023-09-07 20:23] VITALS: BP 141/85; PULSE 77; RESP 18; TEMP 36.9; O2SAT 96
[2023-09-07 20:45] VITALS: PULSE 77; O2SAT 97
[2023-09-07] MEDS: atorvastatin 40 mg Tablet PO (20:56)
[2023-09-07 20:57] VITALS: RESP 16; O2SAT 96
[2023-09-07] MEDS: oxyCODONE-APAP 5-325 mg Tablet 1 TAB PO (20:57)
[2023-09-07] MEDS: tizanidine 4 mg Tablet PO (20:58)
[2023-09-08] VITALS (29 sets, daily range): BP systolic 94–178; BP diastolic 44–96; PULSE 60–93; RESP 12–18; TEMP 36.3–36.9; O2SAT 92–100
--- NOTE | 2023-09-08 06:16 | P.HP_ITS ---
Providers/Chief Complaint Admitting Physician: Braydon Carroll DO Primary Care Provider: Jelly Patel DO Chief Complaint: Infected Spine History of Present Illness Ángela Forrester is a 68 year old female seen in clinic today patient had drainage which is purulent superiorly I ordered a emergent MRI. Looks like she has a wound infection. Will plan to take her to the OR on 09/08/2023 Review of Systems General: Reports: 10 or more systems reviewed and unremarkable except in HPI and below Const: Denies: fever(s), chills or body aches Eyes: Denies: change in vision Card: Denies: chest pain, dyspnea on exertion or orthopnea Resp: Denies: dyspnea, productive cough or wheezing GI: Denies: abdominal pain, nausea or vomiting Musc: Denies: neck pain, back pain, extremity pain, joint pain, joint swelling or limited range of motion Skin/Breast: Denies: changes in skin color or dry skin Neuro: Denies: numbness in extremities or weakness in extremities Psych: Denies: anxiety or depression Deep/Lymph: Denies: easy bruising or easy bleeding Medications/Allergies Home Medications Medication Instructions Recorded Confirmed Last Taken Type dicyclomine 10 mg capsule 10 mg PO Q6H PRN CRAMPING 06/07/19 09/07/23 08/03/23 History levocetirizine 5 mg tablet (Xyzal) 5 mg PO QPM 06/07/19 09/07/23 08/03/23 History nitroglycerin 0.4 mg sublingual 0.4 mg sublingual Q5M PRN Chest 06/18/19 09/07/23 03/16/20 History tablet (Nitrostat) Pain aspirin 81 mg tablet,delayed 81 mg PO QPM 02/18/20 09/07/23 07/31/23 History release (Adult Aspirin Regimen) docusate sodium 100 mg capsule 100 mg PO BID 05/24/21 09/07/23 08/03/23 History (Colace) CPAP mask, tubing and supplies #1 ea 06/16/22 09/07/23 08/03/23 Rx one touch verio flex test strips #100 ea 09/22/22 09/07/23 08/03/23 Rx pantoprazole 40 mg tablet,delayed 40 mg PO DAILY 90 days #90 tabs 05/04/0609/07/23 08/03/23 Rx release (Protonix) tizanidine 4 mg tablet 4 mg PO Q8H PRN muscle spasticity 02/07/23 09/07/23 1 Month Ago Rx #90 tabs ~07/06/23 blood sugar diagnostic (Blood #50 ea 03/23/23 09/07/23 08/03/23 Rx Glucose Test strips) blood-glucose meter #1 ea 03/23/23 09/07/23 08/03/23 Rx meloxicam 15 mg tablet 15 mg PO DAILY #90 tabs 03/23/23 09/07/23 07/31/23 Rx blood sugar diagnostic (CareTouch #300 ea 03/24/23 09/07/23 08/03/23 Rx Test Strip) lancets 25 gauge #100 ea 03/24/23 09/07/23 08/03/23 Rx atorvastatin 80 mg tablet 80 mg PO DAILY #90 tabs 06/22/23 09/07/23 08/03/23 Rx amlodipine 5 mg tablet 5 mg PO QPM 08/04/23 09/07/23 08/03/23 History canagliflozin 300 mg tablet 300 mg PO DAILY 08/04/23 09/07/23 08/03/23 History (Invokana) chlorthalidone 25 mg tablet 25 mg PO QPM 08/04/23 09/07/23 08/03/23 History losartan 50 mg tablet 50 mg PO BID 08/04/23 09/07/23 08/03/23 History montelukast 10 mg tablet 10 mg PO DAILY 08/04/23 09/07/23 08/03/23 History albuterol sulfate 90 mcg/actuation 2 puff inhalation QID PRN 09/07/23 09/07/23 Unknown History aerosol inhaler Shortness Of Breath Or Wheezing estradiol 2 mg tablet 2 mg PO QPM 09/07/23 09/07/23 Unknown History oxycodone-acetaminophen 5 mg-325 1 tab PO Q4H PRN Pain 09/07/23 09/07/23 Unknown History mg tablet Allergies Allergy/AdvReac Type Severity Reaction Status Date / Time latex Allergy Intermediate rash Verified 09/07/23 08:28 Anesthetics - Amide Type - Allergy ALGY-Rash Verified 09/07/23 15:02 Select A Anesthetics - Catherine Type- Allergy ALGY-Rash Verified 09/07/23 15:02 Parabens cortisone Allergy shortness Verified 09/07/23 08:28 of breath Iodinated Contrast Media Allergy ADR-Seizure Verified 09/07/23 14:53 PFSH Acute PFSH: Medical History Aftercare following surgery of the genitourinary system History of COVID-19 Bile reflux gastritis Type 2 diabetes mellitus, without long-term current use of insulin GERD (gastroesophageal reflux disease) Hyperlipidemia Essential hypertension Depression Surgical History History of suburethral sling procedure 05/05/2021- SIS, posterior colporrhaphy performed by Dr. Maravilla at [facility] History of total abdominal hysterectomy and bilateral salpingo-oophorectomy (~2000) performed in [place]; due to fibroid Status post colonoscopy (~03/2020) Diverticulosis sigmoid colon H/O esophagogastroduodenoscopy (~03/2020) S/p bilateral carpal tunnel release S/P appendectomy S/P cholecystectomy S/P discectomy lumbar Status post total knee replacement, left S/P breast augmentation (~2002) saline Family History Family/Other Thyroid disease Maternal Aunt Cancer prostate Family/Other Thyroid disease Paternal Niece Mother Heart disease Atrial fibrillation Diabetes Brother Atrial fibrillation Hypertension Cancer throat and tongue Father Cancer Lung CA Other CAD (coronary artery disease) Stroke Denies family history of Colon cancer Ovarian cancer Hypercholesteremia Anesthesia complication Bleeding disorder Social History Smoking and tobacco/nicotine status: former use of tobacco/nicotine Alcohol intake: current Alcohol intake frequency: holidays/special occasions only Substance/Drug Use: never Vitals/I&O/Wt Last Vital Signs Temp 97.9 F 09/08/23 04:17 Pulse 68 09/08/23 04:17 Resp 18 09/08/23 04:17 BP 139/91 09/08/23 04:17 Pulse Ox 95 09/08/23 04:17 O2 Del Method Room Air 09/07/23 15:56 FiO2 21 09/07/23 20:45 09/07/23 09/07/2324 14:59 22:59 06:59 Intake Total 470 / 470 0 / 470 Balance 470 / 470 0 / 470 Weight last 48 hrs Weight 242 lb 14.4 oz Weight 240 lb 2 oz Physical Exam Narrative: Patient had purulent drainage at the superior part of her incision. Patient is neurovascular intact A&P Assessment and plan (1) Wound infection after surgery: Patient is 4 weeks out from decompression. There is no hardware in place. Plan to be taken to the OR for washout and cultures and sensitivity Attestations Medical Necessity Statement*: Wound infection Coding Level of Care Code Acute Code for [facility] Fwd Diagnoses Wound infection after surgery T81.49XA
--- NOTE | 2023-09-08 09:14 | PC.CHAP ---
Pastoral Care Encounter/Spiritual Assessment Type of Contact [] Declined filer metal patterns visit [] Patient/Family/Request visit [] Outpatient visit [] Follow-up visit [] Physician referral [] Code/Alert [x] Routine visit [] Staff referral [] Actively dying [] Patient sleeping [] Family support [] [] Out of room [] Palliative care [] [] Receiving care in room [] Pre-surgical visit [] Trauma [] Long length of stay [] ICU visit [] Other: Relational/Emotional Strength [x] Patient feels connected with others/family/visitors/staff [] Distress [] Loneliness/isolation [] Abandonment Spirituality of Patient [x] Person of Tammi [x] Attends Mandaeism of their Tammi [x] Believes in Prayer [x] Reads Bible or Gnosticist materials [] There are Spiritual issues to be addressed Operations Inspector Interventions [x] Prayer [x] Active listening [] Non-anxious presence [x] Spiritual/emotional support [] Crisis/trauma care [] Spiritual counseling [] Bereavement support [] Provided bereavement packet [] Provided Bible/devotional materials [] Provided toy/stuffed animal, coloring book to patient or family member [] Provided Communion [] Anointing/[place] [] Salvation [x] Completed spiritual assessment [] Other: Impact on Illness or Injury [] Angry [] Fearful [] Anxious [] Often cries [] Exhaustion [] Unable to work [] Unable to attend scientologist [] Unable to walk/stand [] Unable to read [] Unable to drive [] Unable to eat/drink [] Unable to sleep [] Unable to be with family [] Patient intubated [] Other: Summary Time spent with patient 5 min
--- NOTE | 2023-09-08 09:19 | PC.NURSE ---
Surgery staff here to take pt to surgery
[2023-09-08] MEDS: sodium chloride 0.9% 1,000 ML 30 ML IV (09:45)
--- NOTE | 2023-09-08 10:12 | P.ANESASSM_ITS ---
Pre-Anesthetic Assessment Height/Weight: Height 1.7 m Weight 110.178 kg Temp Pulse Resp BP Pulse Ox O2 Del Method FiO2 97.3 F L 70 18 178/84 98 Room Air 09/08/23 09:31 09/08/23 09:31 09/08/23 09:31 09/08/23 09:31 09/08/23 09:31 09/08/23 09:31 09/07/23 20:45 Preop Diagnosis: Lumbar wound infection Operation Date: 09/08/23 12:15 Proposed Procedures p Incision and Drainage of Spine(Not Applicable) - Braydon Carroll DO Familial anesthetic complications: Patient had shakes after her knee scope and stayed 3-4 hrs for this outpatient procedure. 5 years ago she then had knee replacement. It seems as though in the recovery room the patient had symptoms of seizure or stroke. Her was brought back to the recovery room and was told she's either had a seizure or a stroke. He described a procedure happening that was most likely a central line and she had to go to ICU and they intubated her. She talked about having a rash all over her body. They ruled out stroke at the hospital. She said it may have been allergic reaction and hospital told her there was no way to know which drug caused it as she received 27 different medications during her visit. has since had propofol and spinal and done well. Will give benadryl, patient informed of risk of reaction since we don't know what caused it. Will avoid aminosteroid NMBS in favor of succinylcholine Was Beta Javi taken within 24 hours: N/A Was Clonidine taken within 24 hours: N/A Last intake: Intake Last Liquid Date 09/07/23 Last Liquid Time 22:00 Last Solid Date 09/07/23 Last Solid Time 18:00 Social No alcohol and No tobacco Exam alert, oriented x 3, clear to auscultation bilaterally and regular rate & rhythm Airway Mallampati: Class II Dentition: chipped Pulmonary Sleep Apnea CV/HEM Stable Angina and Hypertension Metabolic Diabetes Mellitus, Hyperlipidemia and Morbid Obesity Anesthetic Plan ASA status: 3 Anesthesia: General Risk of > 500 ml blood loss (7ml/kg in children): No Medications/Allergies Home Medications Medication Instructions Recorded Confirmed Last Taken Type dicyclomine 10 mg capsule 10 mg PO Q6H PRN CRAMPING 0109/07/23 08/03/23 History levocetirizine 5 mg tablet (Xyzal) 5 mg PO QPM 06/07/19 09/07/23 08/03/23 History nitroglycerin 0.4 mg sublingual 0.4 mg sublingual Q5M PRN Chest 06/18/19 09/07/23 03/16/20 History tablet (Nitrostat) Pain aspirin 81 mg tablet,delayed 81 mg PO QPM 02/18/20 09/07/23 07/31/23 History release (Adult Aspirin Regimen) docusate sodium 100 mg capsule 100 mg PO BID 05/24/21 09/07/23 08/03/23 History (Colace) CPAP mask, tubing and supplies #1 ea 06/16/22 09/07/23 08/03/23 Rx one touch verio flex test strips #100 ea 09/22/22 09/07/23 08/03/23 Rx pantoprazole 40 mg tablet,delayed 40 mg PO DAILY 90 days #90 tabs 09/22/22 09/07/23 08/03/23 Rx release (Protonix) tizanidine 4 mg tablet 4 mg PO Q8H PRN muscle spasticity 02/07/23 09/07/23 1 Month Ago Rx #90 tabs ~07/06/23 blood sugar diagnostic (Blood #50 ea 03/23/23 09/07/23 08/03/23 Rx Glucose Test strips) blood-glucose meter #1 ea 03/23/23 09/07/23 08/03/23 Rx meloxicam 15 mg tablet 15 mg PO DAILY #90 tabs 03/23/23 09/07/23 07/31/23 Rx blood sugar diagnostic (CareTouch #300 ea 03/24/23 09/07/23 08/03/23 Rx Test Strip) lancets 25 gauge #100 ea 03/24/23 09/07/23 08/03/23 Rx atorvastatin 80 mg tablet 80 mg PO DAILY #90 tabs 06/22/23 09/07/23 08/03/23 Rx amlodipine 5 mg tablet 5 mg PO QPM 08/04/23 09/07/23 08/03/23 History canagliflozin 300 mg tablet 300 mg PO DAILY 08/04/23 09/07/23 08/03/23 History (Invokana) chlorthalidone 25 mg tablet 25 mg PO QPM 08/04/23 09/07/23 08/03/23 History losartan 50 mg tablet 50 mg PO BID 08/04/23 09/07/23 08/03/23 History montelukast 10 mg tablet 10 mg PO DAILY 08/04/23 09/07/23 08/03/23 History albuterol sulfate 90 mcg/actuation 2 puff inhalation QID PRN 09/07/23 09/07/23 Unknown History aerosol inhaler Shortness Of Breath Or Wheezing estradiol 2 mg tablet 2 mg PO QPM 09/07/23 09/07/23 Unknown History oxycodone-acetaminophen 5 mg-325 1 tab PO Q4H PRN Pain 09/07/23 09/07/23 Unknown History mg tablet Allergies Allergy/AdvReac Type Severity Reaction Status Date / Time latex Allergy Intermediate rash Verified 09/07/23 08:28 Anesthetics - Amide Type - Allergy ALGY-Rash Verified 09/07/23 15:02 [facility] - Catherine Type- Allergy ALGY-Rash Verified 09/07/23 15:02 Parabens cortisone Allergy shortness Verified 09/07/23 08:28 of breath Iodinated Contrast Media Allergy ADR-Seizure Verified 09/07/23 14:53 Current Medications Generic Name Dose Route Start Last Admin Trade Name Freq PRN Reason Stop Dose Admin Amlodipine Besylate 5 mg 09/07/23 18:00 09/07/23 17:15 Amlodipine 5 Mg Tablet PO Not Given QPM NANCY Atorvastatin Calcium 40 mg 09/07/23 21:00 09/07/23 20:56 Atorvastatin 40 Mg Tablet PO 40 mg BEDTIME NANCY Administration Chlorthalidone 25 mg 09/07/23 18:00 09/07/23 17:15 Chlorthalidone 25 Mg Tablet PO Not Given QPM NANCY Docusate Sodium 100 mg 09/07/23 18:00 09/08/23 07:40 Docusate Sodium 100 Mg Capsule PO Not Given BID NANCY Estradiol 2 mg 09/07/23 18:00 09/07/23 17:16 Estradiol 1 Mg Tablet PO Not Given QPM NANCY Sodium Chloride 1,000 mls @ 30 mls/hr 09/08/23 09:30 09/08/23 09:45 Sodium Chloride 0.9% IV 09/09/23 09:29 30 mls/hr .Q24H NANCY Administration Losartan Potassium 50 mg 09/07/23 18:00 09/08/23 07:41 Losartan 50 Mg Tablet PO Not Given BID NANCY Montelukast Sodium 10 mg 09/08/23 09:00 09/08/23 07:41 Montelukast Sodium 10 Mg Tablet PO Not Given DAILY NANCY Non-Formulary Medication 300 mg 09/08/23 09:00 09/08/23 07:39 Canagliflozin [Invokana] PO Not Given DAILY NANCY Non-Formulary Medication 5 mg 09/07/23 18:00 09/07/23 16:22 Levocetirizine [Xyzal] PO Not Given QPM NANCY Oxycodone/Acetaminophen 1 tab 09/07/23 15:25 09/07/23 20:57 Oxycodone-Apap 5-325 Mg Tablet PO 1 tab Q4H PRN Administration Pain Pantoprazole Sodium 40 mg 09/08/23 09:00 09/08/23 07:[address] 40 Mg Tablet PO Not Given DAILY NANCY Tizanidine HCl 4 mg 09/07/23 15:25 09/07/23 20:58 Tizanidine 4 Mg Tablet PO 4 mg Q8H PRN Administration muscle spasticity [facility] Anesthesia Medical History Aftercare following surgery of the genitourinary system History of COVID-19 Bile reflux gastritis Type 2 diabetes mellitus, without long-term current use of insulin GERD (gastroesophageal reflux disease) Hyperlipidemia Essential hypertension Depression Surgical History History of suburethral sling procedure 05/05/2021- SIS, posterior colporrhaphy performed by Dr. Maravilla at [facility] History of total abdominal hysterectomy and bilateral salpingo-oophorectomy (~2000) performed in [place]; due to fibroid Status post colonoscopy (~03/2020) Diverticulosis sigmoid colon H/O esophagogastroduodenoscopy (~03/2020) S/p bilateral carpal tunnel release S/P appendectomy S/P cholecystectomy S/P discectomy lumbar Status post total knee replacement, left S/P breast augmentation (~2002) saline Family History Family/Other Thyroid disease Maternal Aunt Cancer prostate Family/Other Thyroid disease Paternal Niece Mother Heart disease Atrial fibrillation Diabetes Brother Atrial fibrillation Hypertension Cancer throat and tongue Father Cancer Lung CA Other CAD (coronary artery disease) Stroke Denies family history of Colon cancer Ovarian cancer Hypercholesteremia Anesthesia complication Bleeding disorder Social History Smoking and tobacco/nicotine status: former use of tobacco/nicotine Alcohol intake: current Alcohol intake frequency: holidays/special occasions only Substance/Drug Use: never Data Anesthesia Cardiac Studies: No Data to Display
[2023-09-08] MEDS: vancomycin 1,000 MG in sodium chloride 0.9% 250 ML 250 MG IV (11:27)
[2023-09-08] MEDS: vancomycin 1,000 MG SDV 1000 MG XX (11:35)
[2023-09-08] MEDS: lidocaine-epi 1% 20 mL INJ INJECTION (11:38)
[2023-09-08] MEDS: fentaNYL 50 mcg/mL INJ 2mL IVP ×2 (12:20→12:28)
--- NOTE | 2023-09-08 12:29 | PC.SOCIAL ---
IMM Update pg 2 of IMM updated w/ patient. Copy provided and copy dated, initialed and placed in chart.
[2023-09-08] MEDS: HYDROmorphone 1 mg/mL INJ 1 mL 0.5 MG IVP (12:43)
--- NOTE | 2023-09-08 13:49 | PC.NURSE ---
Pt returns from surgery. VSS. at bedside.
--- NOTE | 2023-09-08 14:10 | PM.OP ---
Operative Report Date of procedure: September 08, 2023 Pre-op diagnosis: Spine wound infection Post-op diagnosis: same Procedure done: Irrigation debridement of wound to muscle and fascia Surgeon: Braydon Carroll DO Estimated blood loss (mL): 20 Procedure: Irrigation debridement of wound down to muscle and fascia Patient brought the op suite after undergoing anesthesia placed in the prone position. All eyes appear well-padded. Patient's prepped draped normal sterile fashion there is a area of redness and a opening on the superior part of the incision. The part of the incision superiorly was ellipsed out. The small amount of pus in this area. This point the wound was opened there was a fluid collection there was cloudy was not colette pus. This point a liter of saline was used to irrigate out the wound cultures were taken prior to this. There were no fluid pockets left wound was debrided with curettes to get to bleeding tissue tissue all look healthy. This point the wound was again irrigated a liter of saline and then the wound was closed in layered fashion with 0 Vicryl 2-0 Vicryl and Monocryl suture. Sterile dressings were applied and patient was transferred to the PACU in stable condition.
[2023-09-08] MEDS: lactated ringers 1,000 ML 90 ML IV (14:47)
[2023-09-08] MEDS: morphine 4 mg/mL SDV 1 mL 2 MG IVP ×3 (14:55→22:03)
[2023-09-08] MEDS: losartan 50 mg Tablet PO (17:08)
[2023-09-08] MEDS: amlodipine 5 mg Tablet PO (17:08)
[2023-09-08] MEDS: chlorthalidone 25 mg Tablet PO (17:08)
[2023-09-08] MEDS: estradiol 1 mg Tablet 2 MG PO (17:08)
[2023-09-08] MEDS: docusate sodium 100 mg Capsule PO (17:10)
[2023-09-08 17:12] LABS: Glucose Point of Care 164 mg/dL (70-110)
[2023-09-08] MEDS: atorvastatin 40 mg Tablet PO (21:11)
[2023-09-08] MEDS: dicyclomine 10 mg Capsule PO (21:14)
[2023-09-09] VITALS (12 sets, daily range): BP systolic 107–121; BP diastolic 67–76; PULSE 54–71; RESP 15–18; TEMP 36.4–36.9; O2SAT 93–97; BMI 38.0
[2023-09-09] MEDS: lactated ringers 1,000 ML 90 ML IV ×2 (02:45→14:25)
[2023-09-09] MEDS: morphine 4 mg/mL SDV 1 mL 2 MG IVP ×2 (02:48→13:27)
[2023-09-09 06:48] LABS: Glucose Point of Care 127 mg/dL (70-110)
[2023-09-09] MEDS: pantoprazole DR 40 mg Tablet PO (09:01)
[2023-09-09] MEDS: oxyCODONE-APAP 10-325 mg Tablet 1 TAB PO ×2 (09:01→17:37)
[2023-09-09] MEDS: losartan 50 mg Tablet PO ×2 (09:01→17:37)
[2023-09-09] MEDS: montelukast sodium 10 mg Tablet PO (09:01)
[2023-09-09] MEDS: docusate sodium 100 mg Capsule PO ×2 (09:02→17:37)
--- NOTE | 2023-09-09 10:42 | P.PN_ITS ---
Subjective Subjective: Patient sitting up in chair. Get some numbness and tingling in her legs. Subjective weakness in her left leg. Vitals/I&O/Wt Last Vital Signs Temp 97.8 F 09/09/23 08:11 Pulse 62 09/09/23 08:11 Resp 15 09/09/23 09:01 BP 118/71 09/09/23 09:01 Pulse Ox 96 09/09/23 08:11 O2 Del Method Room Air 09/09/23 08:11 O2 Flow Rate 2 09/08/23 16:20 FiO2 21 09/07/23 20:45 09/08/23 09/09/23 09/09/23 22:59 06:59 14:59 Intake Total 1203.5 / 2153.5 541 / 2694.5 480 / 480 Output Total 1580 / 1590 915 / 2505 Balance -376.5 / 563.5 -374 / 189.5 480 / 480 Weight last 48 hrs Weight 242 lb 14.4 oz Weight 242 lb 14.4 oz Weight 240 lb 2 oz Physical Exam Narrative: 5 5 strength bilateral lower extremities . Urinary Catheter Management: Hernandez: Cath Placed During This Visit: yes Reason for Continuing Indwelling Catheter: Required Immobilization for Trauma or Surgery or Anesthesia Urinary Catheter Date of Insertion: 09/08/23 Urinary Catheter Time of Insertion: 15:14 Data Micro: Microbiology 09/08/23 11:18 Gram Stain - Final Back A&P Assessment and plan (1) Status post lumbar laminectomy: Postop day #1 wound I&D Up with therapy Will order PICC line Attestations Medical Necessity Statement*: Infection management Coding Level of Care Code Acute Code for Chg Fwd Diagnoses Status post lumbar laminectomy Z98.890
[2023-09-09 11:47] LABS: Glucose Point of Care 207 mg/dL (70-110)
--- NOTE | 2023-09-09 11:55 | XRR_ITS ---
PROCEDURE INFORMATION: Exam: XR Chest Exam date and time: 09/09/2023 12:43 PM Age: 68 years old Clinical indication: Device placement; Picc; Additional info: Picc confirmation only TECHNIQUE: Imaging protocol: Radiologic exam of the chest. Views: 1 view. COMPARISON: CR XR chest 1V [id number] 03/14/2019 4:06 PM FINDINGS: Tubes, catheters and devices: PICC from the left arm with the tip in the distal SVC in satisfactory position. Lungs: Unremarkable. No consolidation or mass. Pleural spaces: Unremarkable. No pleural effusion. No pneumothorax. Heart/Mediastinum: Unremarkable. No cardiomegaly. Bones/joints: Unremarkable. XR/XR chest 1V portable [id number] IMPRESSION: Good PICC positioning
--- NOTE | 2023-09-09 13:16 | PICC.NOTE ---
Single lumen PICC placed to left basilic vein. Referred to vascular access nurse for PICC placement due to need for IV antibiotics > 14 days. Risks and benefits discussed and informed consent obtained from patient. Left arm assessed with left basilic vein measuring 3.6 mm, straight, and apparent best choice for placement. Using sterile technique and MST, left basilic vein accessed x 1 stick. Mid-arm circumference measured 10 cm from left AC 45 cm. Trimmed cath 52 cm with 0 cm external length noted. CXR shows tip in what appears to be the distal SVC, cavoatrial junction. Awaiting read from radiologist. Line secured with stat-lock. Insertion site covered with Biopatch and TSM. Report given to bedside nurseGrace.
[2023-09-09] MEDS: vancomycin 1,500 MG/300 ML PIGGYBACK 200 MG IV (14:23)
[2023-09-09 16:52] LABS: Glucose Point of Care 188 mg/dL (70-110)
[2023-09-09] MEDS: amlodipine 5 mg Tablet PO (17:37)
[2023-09-09] MEDS: chlorthalidone 25 mg Tablet PO (17:37)
[2023-09-09] MEDS: estradiol 1 mg Tablet 2 MG PO (17:37)
[2023-09-09] MEDS: insulin lispro 100 unit/1 mL SUBCUT ×2 (17:38→21:44)
--- NOTE | 2023-09-09 19:03 | PC.NURSE ---
This nurse called pharmacy earlier to remove order for pneumonia vaccine because patient refused at this time. Oneal from pharmacy stopped order.
[2023-09-09 20:14] LABS: Glucose Point of Care 179 mg/dL (70-110)
[2023-09-09] MEDS: atorvastatin 40 mg Tablet PO (21:47)
[2023-09-09] MEDS: ketorolac 30 mg/mL INJ IVP (21:47)
[2023-09-10] VITALS (12 sets, daily range): BP systolic 114–137; BP diastolic 74–88; PULSE 64–83; RESP 17–18; TEMP 36.5–36.8; O2SAT 93–97
[2023-09-10] MEDS: lactated ringers 1,000 ML 90 ML IV (04:49)
[2023-09-10] MEDS: vancomycin 1,500 MG/300 ML PIGGYBACK 200 MG IV ×2 (04:49→22:35)
[2023-09-10] MEDS: oxyCODONE-APAP 10-325 mg Tablet 1 TAB PO (04:54)
[2023-09-10 06:41] LABS: Glucose Point of Care 112 mg/dL (70-110)
[2023-09-10] MEDS: pantoprazole DR 40 mg Tablet PO (09:18)
[2023-09-10] MEDS: montelukast sodium 10 mg Tablet PO (09:18)
[2023-09-10] MEDS: losartan 50 mg Tablet PO ×2 (09:18→17:24)
[2023-09-10] MEDS: docusate sodium 100 mg Capsule PO ×2 (09:21→17:24)
[2023-09-10] MEDS: dicyclomine 10 mg Capsule PO (09:21)
[2023-09-10 11:29] LABS: Glucose Point of Care 167 mg/dL (70-110)
--- NOTE | 2023-09-10 11:54 | PM.PN ---
Subjective Subjective: Patient is doing well was up with physical therapy got lightheaded. At this point would like her Hernandez out. Pain is controlled. Cultures are still pending. Vitals/I&O/Wt Last Vital Signs Temp 97.8 F 09/10/23 07:57 Pulse 83 09/10/23 09:23 Resp 18 09/10/23 09:23 BP 137/88 09/10/23 07:57 Pulse Ox 96 09/10/23 09:23 O2 Del Method Room Air 09/10/23 09:23 O2 Flow Rate 2 09/08/23 16:20 FiO2 21 09/09/23 19:56 09/09/23 09/10/23 09/10/23 22:59 06:59 14:59 Intake Total 1520 / 3132.5 1683 / 4815.5 680 / 680 Output Total 2200 / 3800 1550 / 5350 1200 / 1200 Balance -680 / -667.5 133 / -534.5 -520 / -520 Weight last 48 hrs Weight 267 lb 4.8 oz Weight 242 lb 14.4 oz Physical Exam Narrative: Culture still pending Urinary Catheter Management: Hernandez: Cath Placed During This Visit: yes Reason for Continuing Indwelling Catheter: Other Urinary Catheter Date of Insertion: 09/08/23 Urinary Catheter Time of Insertion: 15:14 Data Micro: Microbiology 09/08/23 11:18 Gram Stain - Final Back Anaerobic Culture - Preliminary Wound Culture - Preliminary A&P Assessment and plan (1) Status post lumbar laminectomy: Postop day #2 I&D of back. Anticipate discharge planning tomorrow patient has PICC line in and need to discuss case management how to set up the antibiotics. Attestations Medical Necessity Statement*: Awaiting case management to set up antibiotics Coding Level of Care Code Acute Code for Chg Fwd Diagnoses Status post lumbar laminectomy Z98.890
[2023-09-10] MEDS: insulin lispro 100 unit/1 mL SUBCUT ×3 (12:10→20:47)
[2023-09-10 16:37] LABS: Glucose Point of Care 154 mg/dL (70-110)
[2023-09-10] MEDS: estradiol 1 mg Tablet 2 MG PO (17:24)
[2023-09-10] MEDS: amlodipine 5 mg Tablet PO (17:25)
[2023-09-10] MEDS: chlorthalidone 25 mg Tablet PO (17:25)
[2023-09-10] MEDS: ketorolac 30 mg/mL INJ IVP (19:34)
[2023-09-10 20:47] LABS: Glucose Point of Care 200 mg/dL (70-110)
[2023-09-10] MEDS: atorvastatin 40 mg Tablet PO (20:47)
[2023-09-10] MEDS: morphine 4 mg/mL SDV 1 mL 2 MG IVP (20:51)
[2023-09-11] VITALS (7 sets, daily range): BP systolic 117–149; BP diastolic 70–85; PULSE 62–72; RESP 16–18; TEMP 36.3–36.7; O2SAT 94–98
[2023-09-11 06:19] LABS: Creatinine Clr Calc Pharmacy 67.0982; Glomerular Filtration Rate 82.7 mL/min (90-130)
[2023-09-11] MEDS: ketorolac 30 mg/mL INJ IVP (06:36)
[2023-09-11 06:41] LABS: Glucose Point of Care 145 mg/dL (70-110)
[2023-09-11] MEDS: insulin lispro 100 unit/1 mL SUBCUT ×3 (09:04→22:08)
[2023-09-11] MEDS: docusate sodium 100 mg Capsule PO ×4 (09:05→17:03)
[2023-09-11] MEDS: montelukast sodium 10 mg Tablet PO (09:05)
[2023-09-11] MEDS: pantoprazole DR 40 mg Tablet PO (09:05)
[2023-09-11] MEDS: losartan 50 mg Tablet PO ×2 (09:05→17:03)
[2023-09-11 10:52] LABS: Glucose Point of Care 157 mg/dL (70-110)
--- NOTE | 2023-09-11 12:13 | P.PN_ITS ---
Subjective 2 Subjective: Patient is awaiting orders for home health versus coming in person to get antibiotics. Vitals/I&O/Wt Last Vital Signs Temp 98.1 F 09/11/23 11:42 Pulse 71 09/11/23 11:42 Resp 16 09/11/23 11:42 BP 122/72 09/11/23 11:42 Pulse Ox 97 09/11/23 11:42 O2 Del Method Room Air 09/11/23 11:42 O2 Flow Rate 2 09/08/23 16:20 FiO2 21 09/10/23 22:40 09/10/23 09/11/23 09/11/23 22:59 06:59 14:59 Intake Total 1490 / 3289 500 / 3789 240 / 240 Balance 1490 / 1489 500 / 1988 240 / 240 Weight last 48 hrs Weight 154 lb 4.8 oz Weight 267 lb 4.8 oz Physical Exam 2 Narrative: Sitting in chair comfortable Urinary Catheter Management: Hernandez: Cath Placed During This Visit: yes, but has since been removed by the nurse Reason for Continuing Indwelling Catheter: Decision to DC Catheter Urinary Catheter Date of Insertion: 09/08/23 Urinary Catheter Time of Insertion: 15:14 Date Urinary Catheter Removed: 09/10/23 Time Urinary Catheter Discontinued: 13:00 Data 09/11/23 05:35 Micro: Microbiology 09/08/23 11:18 Gram Stain - Final Back Anaerobic Culture - Preliminary Wound Culture - Final Methicillin Resis Staph Aureus A&P Assessment and plan (1) Status post lumbar laminectomy: Patient is postop day #3 I&D of lumbar laminectomy. Sitting up home infusions for IV antibiotics but Discussed with Dr. Patel. She said she would follow the labs. Discharge planning when trumpet player finishes working up with her she will get home versus in person IV infusions. Attestations 2 Medical Necessity Statement*: Infection Coding Level of Care Code Acute Code for Chg Fwd Diagnoses Status post lumbar laminectomy Z98.890
--- NOTE | 2023-09-11 14:09 | PC.SOCIAL ---
IMM Updated Updated pt on IMM. No questions voiced. Provided pt a copy. Initialed, dated, & timed copy in chart.
[2023-09-11] MEDS: vancomycin 1,500 MG/300 ML PIGGYBACK 200 MG IV (17:02)
[2023-09-11] MEDS: amlodipine 5 mg Tablet PO (17:03)
[2023-09-11] MEDS: estradiol 1 mg Tablet 2 MG PO (17:03)
[2023-09-11] MEDS: chlorthalidone 25 mg Tablet PO (17:03)
[2023-09-11 17:15] LABS: Glucose Point of Care 129 mg/dL (70-110)
[2023-09-11] MEDS: atorvastatin 40 mg Tablet PO (20:48)
[2023-09-11] MEDS: bisacodyl 5 mg Tablet 10 MG PO (20:48)
[2023-09-11] MEDS: magnesium citrate Btl 296 mL PO (20:49)
[2023-09-11 21:00] LABS: Glucose Point of Care 188 mg/dL (70-110)
[2023-09-12 04:00] VITALS: BP 138/89; PULSE 66; RESP 17; TEMP 36.4; O2SAT 97
[2023-09-12 06:38] LABS: Glucose Point of Care 132 mg/dL (70-110)
[2023-09-12 07:47] VITALS: BP 145/81; PULSE 72; RESP 18; TEMP 36.7; O2SAT 97
--- NOTE | 2023-09-12 08:13 | PM.DCS ---
Discharge Providers Date of Admission: 09/07/23 14:17 Date of Discharge: September 12, 2023 Attending Provider at Admission: Braydon Carroll DO Attending Provider at Discharge: Braydon Carroll DO Primary Care Provider: Jelly Patel DO Diagnoses at Discharge Discharge Diagnosis (1) Status post lumbar laminectomy: Status: Acute Reason for Visit Reason for Visit: Infected Spine Physical Exam Narrative: Patient tested positive for MRSA. This point we will get her set up on IV antibiotics and have her follow-up with Dr. Cortez when she gets back. Urinary Catheter Management: Hernandez: Cath Placed During This Visit: yes, but has since been removed by the nurse Reason for Continuing Indwelling Catheter: Decision to DC Catheter Urinary Catheter Date of Insertion: 09/08/23 Urinary Catheter Time of Insertion: 15:14 Date Urinary Catheter Removed: 09/10/23 Time Urinary Catheter Discontinued: 13:00 Discharge Data Studies Completed and Pending Completed Studies During Hospitalization Category Date Time Status CXRP [XR chest 1V portable [id number]] Routine Exams 09/09/23 11:55 Completed MR lumbar spine wo con* [id number] Stat MRI 09/07/23 13:33 Completed Pending at discharge Category Date Time Status Anaerobic Culture Routine Lab 09/08/23 11:18 Results Wound Culture and Gram Stain Routine Lab 09/08/23 11:18 Results Radiology Impressions Chest X-Ray 09/09/23 11:55 IMPRESSION: Good PICC positioning Laboratory Results Creatinine 0.7 mg/dL (0.5-0.9) 09/11/23 05:35 GFR Calculation 82.7 mL/min (90-130) L 09/11/23 05:35 POC Glucose 132 mg/dL (70-110) H 09/12/23 06:24 Vancomycin Trough 12.0 ug/mL (10-15) 09/10/23 21:36 Vitals Last Vital Signs Temp 98.0 F 09/12/23 07:47 Pulse 72 09/12/23 07:47 Resp 18 09/12/23 07:47 BP 145/81 09/12/23 07:47 Pulse Ox 97 09/12/23 07:47 O2 Del Method Room Air 09/12/23 07:47 O2 Flow Rate 2 09/08/23 16:20 FiO2 21 09/10/23 22:40 Discharge Plan Discharge Patient Disposition: Home Condition: Stable Prescriptions: New oxycodone 5 mg tablet 5 mg PO Q4H PRN (Reason: pain) 7 Days Qty: 40 0RF Continued aspirin [Adult Aspirin Regimen] 81 mg tablet,delayed release (DR/EC) 81 mg PO QPM Colace 100 mg capsule 100 mg PO BID nitroglycerin [Nitrostat] 0.4 mg tablet, sublingual 0.4 mg SUBLINGUAL Q5M PRN (Reason: Chest Pain) dicyclomine 10 mg capsule 10 mg PO Q6H PRN (Reason: CRAMPING) Hold Instructions: Adverse Reaction levocetirizine [Xyzal] 5 mg tablet 5 mg PO QPM Hold Instructions: Adverse Reaction tizanidine 4 mg tablet 4 mg PO Q8H PRN (Reason: muscle spasticity) Qty: 90 0RF (DME) one touch verio flex test strips See Rx Instructions .Route .MEDSUPPLY Qty: 100 5RF Rx Instructions: for use in testing once daily (DME) blood-glucose meter Misc See Rx Instructions .MEDSUPPLY Qty: 1 0RF Rx Instructions: As directed (DME) Blood Glucose Test Strip See Rx Instructions .MEDSUPPLY Qty: 50 5RF Rx Instructions: As directed meloxicam 15 mg tablet 15 mg PO DAILY Qty: 90 1RF atorvastatin 80 mg tablet 80 mg PO DAILY Qty: 90 1RF (DME) CPAP mask, tubing and supplies See Rx Instructions .Route .MEDSUPPLY Qty: 1 0RF Rx Instructions: As directed pantoprazole [Protonix] 40 mg tablet,delayed release (DR/EC) 40 mg PO DAILY 90 Days Qty: 90 1RF (DME) lancets 25 gauge misc See Rx Instructions .MEDSUPPLY Qty: 100 5RF Rx Instructions: As directed (DME) CareTouch Test Strip Strip See Rx Instructions .Route Qty: 300 3RF Rx Instructions: ONCE DAILY chlorthalidone 25 mg tablet 25 mg PO QPM amlodipine 5 mg tablet 5 mg PO QPM Invokana 300 mg tablet 300 mg PO DAILY losartan 50 mg tablet 50 mg PO BID montelukast 10 mg tablet 10 mg PO DAILY albuterol sulfate 90 mcg/actuation Hfa Aerosol Inhaler 2 puff INHALATION QID PRN (Reason: Shortness Of Breath Or Wheezing) estradiol 2 mg tablet 2 mg PO QPM oxycodone-acetaminophen 5-325 mg tablet 1 tab PO Q4H PRN (Reason: Pain) Discharge Orders: Discharge Order (Routine); Ordered 09/12/23 Ordered By: Braydon Carroll Referrals: Braydon Carroll DO [Physician] - 09/21/23 8:30 am Discharge Diet: Advance as tolerated Discharge Activity: Limit activity as instructed Patient Instructions: Opioid Safety Activity Restrictions/Additional Instructions: Thank you for [facility] for your care! The following is a list of instructions, from your provider, to follow upon your discharge to ensure you have the optimal recovery from your recent injury orsurgery. Follow-up care is a car part of your treatment and safety. Be sure to make and go to all appointments, and call your doctor if you are having problems. If you do not already have a follow-up appointment made, call Dr. Carroll office in the next 1-3 days to make follow up appointment for 1 weeks at [phone]. It is also a good idea to know your test results and keep a list of the medicines you take. Medications will be prescribed for you at your provider's discretion. These medications are to be used as instructed; if they are taken more often that prescribed they will not be refilled early and in most cases will not be refilled at all. > When a refill is needed,you should contact serge bush 2-3 business days before your prescription runs out. Medications will NOT be refilled by air traffic control specialist providers after hours! > Many pain medications contain Tylenol (Acetaminophen). Do not consume more than 4,000 mg of Tylenol per day in total with any combination ofmedications. > Pain medications can cause constipation. Please use an over the counter stool softener as directed, while taking pain medications. Consulty our local pharmacist with questions or recommendations on stool softeners. If constipation persists, contact our office or your primary care provider. > While under our care,you are not to receive pain medications or other controlled substances from any other provider unless our office is notified and approves. Any attempts to do so will result in refusal to prescribe any further pain medications and possible dismissal from our practice. ? Your wound and/or dressing should remain clean and dry for 2 days after surgery. On postoperative day 2 (48 hours after your surgery) the dressing (if present) should be removed and it is okay to shower and get the incision wet. Pad dry afterwards. No further dressing should be required from that point on. Do not put any creams or ointments on theincision > It is normal for there to be a small amount of discharge (bloody or blood tinged) present from a surgical wound for the first 1-3days. > The wound should be examined twice a day for signs of infection. Mild redness or bruising is to be expected but indications that an infection maybe starting would include; An increase in redness, swelling, or discharge, a foul odor present around the incision, and/or a fever greater than 101 ?F ? Showering is permitted, however we ask that you do not take a bath, sit in a whirlpool / Jacuzzi, or go swimming for 1 month. For only the first 2 days after surgery, lt wilt be necessary for you to cover your wound/dressing with plastic and tape to keep it dry. ? Walking is essential for the healing process after surgery. We would like you to slowly advance your walking. This should be done on relatively flat clear ground (inside or out) or can be done on a treadmill. Remember this goal does not have to happen all at once, slowly increase your distance and duration. This can be broken into more more than one walk per day as tolerated. Patients who walk as directed after surgery rarely require Physical Therapy. In the unlikely event this issue arises your provider will direct hospital staff to make the appropriate arrangements. ? No lifting over 5 pounds {a gallon of milk) or bending/twisting until further notice. Each of these activities places an unnecessary amount of stress onto the body and can impede the delicate healing process. > Instead of bending at the waist, keep your back straight and bend at the knees. > Instead of twisting your torso, keep your back straight and turn your entire body with your feet. ? You may sleep in any position which makes you comfortable. Many patients find comfort sleeping in a reclining chair. It is not abnormal to have difficulty sleeping for the first several weeks following your surgery. We recommend trying Benadry! or Tylenol PM as directed to help with your sleeping difficulties. Both medications are over the counter and available withoutprescription. ? NO SMOKING!!! Smoking dramatically increases the probability of developing postoperative wound infections. ? Common complaints after lumbar and/or thoracic spine surgery include, but are not limited to: numbness and/or tingling in the legs, pain around the incision and surrounding tissues, muscle spasms, or stiffness of the middle to low back. Contact our office if these symptoms persist or if an acute change occurs. ? No driving for the first 3-5days, and not while taking narcotics until seen at your follow-up appointment and cleared. There are no restrictions for riding on short trips, however if you take a longer trip, arrangements should be made to make regular stops to get out of the vehicle and stretch . ? Swelling is an unfortunate event that will take place with any surgery and is the primary source of your postoperative discomfort. While walking and regular approved activities helps control inflammation, there are additional steps you can take to minimizeswelling. > Place ice over the surgical site and surrounding tissue for twenty minutes, followed by applying a low/medium heat (heating pad) for an additional twenty minutes every 1-2 hours as needed for painrelief. > You may use of over the counter anti-inflammatory medications (Ibuprofen, Motrin, Aleve, Advil, etc) as directed on the package label. These types of medicines wm significantly reduce the amount of discomfort you experience after surgery from swelling. It should be noted that if you have and allergy to any of these medications, or a history of ulcers or kidney disease you should consult you primary care provider prior to starting these medications. Discharge Attestations Time Spent in Discharge Care*: less than 30 min Quality Metrics Clinical Quality Measures [ No reported AMI, CVA or VTE this stay] Coding Level of Care Code Acute Code for Chg Fwd Diagnoses Status post lumbar laminectomy Z98.890
[2023-09-12 08:16] VITALS: BP 145/81
[2023-09-12] MEDS: montelukast sodium 10 mg Tablet PO (08:16)
[2023-09-12] MEDS: pantoprazole DR 40 mg Tablet PO (08:16)
[2023-09-12] MEDS: losartan 50 mg Tablet PO (08:16)
[2023-09-12 08:24] VITALS: PULSE 70; RESP 16; O2SAT 98
[2023-09-12] MEDS: vancomycin 1,500 MG/300 ML PIGGYBACK 200 MG IV (10:49)
[2023-09-12 10:54] LABS: Glucose Point of Care 148 mg/dL (70-110)
[2023-09-12 11:27] VITALS: BP 137/81; PULSE 67; RESP 18; O2SAT 96
[2023-09-12] MEDS: insulin lispro 100 unit/1 mL SUBCUT (12:11)
[2023-09-12 13:35] VITALS: BP 137/81; PULSE 67; RESP 18; O2SAT 96
--- NOTE | 2023-09-12 13:59 | PC.NURSE ---
Discussed discharge instructions, medications, follow up appointments and restrictions with patient. Patient verbalized understanding to all.
== END 2023-09-12 13:35 | disposition home or self-care (01) | DRG 858 ==
PROVIDERS: Admitting Provider Orthopaedic Surgery; PCP Family Medicine; Visit Provider Orthopaedic Surgery
PROC: 0JD70ZZ Extraction of Back Subcutaneous Tissue and Fascia, Open Approach (ICD-10-PCS; principal; 2023-09-08 11:55)
DX: T81.42XA Infection following a procedure, deep incisional surgical site, initial encounter (principal); B95.62 Methicillin resistant Staphylococcus aureus infection as the cause of diseases classified elsewhere; Y99.9 Unspecified external cause status; Z98.890 Other specified postprocedural states; K21.9 Gastro-esophageal reflux disease without esophagitis; E78.5 Hyperlipidemia, unspecified; I10 Essential (primary) hypertension; Z87.891 Personal history of nicotine dependence; G47.30 Sleep apnea, unspecified; E11.9 Type 2 diabetes mellitus without complications
CPT/HCPCS: 36415; 36416; 36573; 51702; 71045; 72148; 80202; 82565; 82962; 87070; 87075; 87077; 87186; 87205; 94660; 96372; 97110; 97116; 97161; 97530; J0131; J0330; J1100; J1170; J1200; J1815; J1885; J2270; J2405; J2704; J2710; J3010; J3370; J3490; J7030; J7120; J8499

== ENCOUNTER → 2023-09-21 08:52 | Outpatient (BNVA) | payer MEDICARE, SELFPAY | PROVIDERS: PCP Family Medicine; Visit Provider Orthopaedic Surgery | DX: Z98.890 Other specified postprocedural states | CPT/HCPCS: 99024 ==

== ENCOUNTER 2023-09-22 09:00 | Oncology outpatient (recurring) (ONCR) | payer MEDICARE, SELFPAY ==
[2023-09-15 09:15] VITALS: BP 106/67; PULSE 81; RESP 16; TEMP 36; O2SAT 95
[2023-09-15 10:07] LABS: Basophils # 0.1 10^3/uL (0.0-0.1); Basophils % 0.9 %; Eosinophils # 0.4 10^3/uL (0.0-0.8); Eosinophils % 5.1 %; Hematocrit 41.7 % (36-47); Lymphocytes # 1.7 10^3/uL (0.8-4.8); Mean Corpuscular HGB Conc 33.6 g/dL (30-55); Mean Corpuscular Volume 92.5 fl (85-98); Mean Platelet Volume 9.1 fL (7.4-10.4); Monocytes # 0.5 10^3/uL (0.2-0.9); Monocytes % 6.2 %; Neutrophils # 5.82 10^3/uL (1.8-7.7); Neutrophils % 67.2 %; Nucleated Red Blood Cells % 0 %; Platelet Count 311 10^3/cmm (157-399); Red Blood Count 4.51 10^6/uL (3.85-5.65); Red Cell Distribution Width 13.8 % (12.1-15.1); White Blood Count 8.66 10^3/uL (3.29-11.43)
[2023-09-15 10:26] LABS: Anion Gap 16.8 (5-19); Blood Urea Nitrogen 16 mg/dL (8-23); Calcium 8.9 mg/dL (8.5-10.5); Carbon Dioxide 26 mmol/L (22-29); Chloride 101 mmol/L (98-107); Glomerular Filtration Rate 70.9 mL/min (90-130); Glucose 154 mg/dL (65-115); Osmolality Calculated 294 mOsm/kg (285-295); Potassium 3.8 mmol/L (3.5-5.1); Sodium 140 mmol/L (136-145)
[2023-09-15 10:33] LABS: Vancomycin Trough 6.8 ug/mL (10-15)
[2023-09-15] MEDS: alteplase 1 mg/mL SDV 2 mL 2 MG INTRACATH (10:48)
--- NOTE | 2023-09-15 11:17 | PC.NURSE ---
PICC Line Patient presented today for weekly PICC line dressing change and lab draw. PICC line dressing had not been changed the day after placement and no clave was present on arrival. Upon flushing PICC line, no blood return was present. This nurse asked the patient if the PICC line had blood return before administering vancomycin, and the patient stated that it did not. Patient stated she has given herself two vancomycin infusions without checking blood return, and that she had never been instructed to do so. This nurse educated the patient that checking for blood return from the PICC line is necessary to verify the placement is correct, and the patient verbalized understanding. Multiple attempts were made to verify blood return without success. This nurse contacted [facility] and spoke to SANYA Bates and he messaged Dr. Carroll regarding this. Dr. Carroll called this nurse and stated the patient would need a new PICC line but did not give orders on how to proceed. The patient was advised to go to the [facility] clinic to speak with a provider. The patient was then sent back to [facility] to receive Cathflo to attempt restoring blood flow in PICC line per Jill. PICC line dressing was changed using sterile technique and patient was educated that clave should be present and cleaned with alcohol before each infusion. Patient was also educated to check for blood return before and after administering each dose of vancomycin. Patient verbalized understanding. Cathflo was administered and did not successfully restore blood flow in PICC line. Jill was contacted regarding this, and she stated that she is contacting LANI Johnson in GI lab. LANI Johnson came to [facility] to check the PICC line and successfully restored blood flow.
--- NOTE | 2023-09-15 12:07 | PC.NURSE ---
Jill called again and I answered the phone. She let this nurse know that this patient needs twice weekly lab draws in which she has not been getting them. Per patient she has been doing home antibiotic treatments and her insurance let her know that all appts except Fridays at 0900 have been cancelled. This nurse tried multiple times to reach this patient to let her know with no answer and could not leave a message. THis nurse will let Margaret Reddy RN know about this when we come back on Monday.
[2023-09-20] MEDS: alteplase 1 mg/mL SDV 2 mL 2 MG INTRACATH (09:35)
[2023-09-20 10:45] LABS: Basophils # 0.1 10^3/uL (0.0-0.1); Eosinophils # 0.8 10^3/uL (0.0-0.8); Eosinophils % 7.7 %; Hematocrit 41.1 % (36-47); Lymphocytes # 1.9 10^3/uL (0.8-4.8); Mean Corpuscular HGB Conc 33.8 g/dL (30-55); Mean Corpuscular Volume 91.5 fl (85-98); Mean Platelet Volume 9.2 fL (7.4-10.4); Monocytes # 0.5 10^3/uL (0.2-0.9); Monocytes % 5.3 %; Neutrophils # 6.56 10^3/uL (1.8-7.7); Neutrophils % 66.3 %; Nucleated Red Blood Cells % 0 %; Platelet Count 353 10^3/cmm (157-399); Red Blood Count 4.49 10^6/uL (3.85-5.65); Red Cell Distribution Width 13.5 % (12.1-15.1); White Blood Count 9.89 10^3/uL (3.29-11.43)
[2023-09-20 11:05] LABS: Alanine Aminotransferase 18 U/L (0-33); Albumin Level 3.9 g/dL (3.5-5.2); Alkaline Phosphatase 87 U/L (35-105); Anion Gap 16.1 (5-19); Aspartate Amino Transferase 12 U/L (0-32); Blood Urea Nitrogen 24 mg/dL (8-23); Calcium 9.1 mg/dL (8.5-10.5); Carbon Dioxide 26 mmol/L (22-29); Chloride 98 mmol/L (98-107); Globulin 3.1 g/dL (1.3-4.6); Glomerular Filtration Rate 54.8 mL/min (90-130); Glucose 201 mg/dL (65-115); Osmolality Calculated 294 mOsm/kg (285-295); Potassium 3.1 mmol/L (3.5-5.1); Sodium 137 mmol/L (136-145); Total Bilirubin 0.4 mg/dL (0.15-1.2)
[2023-09-20 11:06] LABS: Vancomycin Trough 5.6 ug/mL (10-15)
== END 2023-10-13 23:59 | disposition home or self-care (01) ==
PROVIDERS: Orthopaedic Surgery; PCP Family Medicine; Visit Provider Family Medicine
DX: Z53.9 Procedure and treatment not carried out, unspecified reason (principal)
CPT/HCPCS: 36415; 36593; 80048; 80053; 80202; 85025; J2997

== ENCOUNTER → 2023-10-05 12:45 | Outpatient (BNVA) | payer MEDICARE, SELFPAY | PROVIDERS: PCP Family Medicine; Visit Provider Orthopaedic Surgery | DX: Z98.890 Other specified postprocedural states (principal) | CPT/HCPCS: 99024 ==

== ENCOUNTER → 2023-10-17 10:29 | Outpatient (BNVA) | payer MEDICARE, SELFPAY | PROVIDERS: PCP Family Medicine; Visit Provider Family Medicine | DX: E11.9 Type 2 diabetes mellitus without complications (principal); R19.7 Diarrhea, unspecified; I10 Essential (primary) hypertension; J30.2 Other seasonal allergic rhinitis; Z79.899 Other long term (current) drug therapy | CPT/HCPCS: 80053; 80061; 82043; 83036; 85025 ==

== ENCOUNTER → 2023-11-06 10:53 | Outpatient (BNVA) | payer MEDICARE, SELFPAY | PROVIDERS: PCP Family Medicine; Visit Provider Nurse Practitioner Family | DX: D22.5 Melanocytic nevi of trunk (principal); D48.5 Neoplasm of uncertain behavior of skin; L57.0 Actinic keratosis; I78.8 Other diseases of capillaries; L72.0 Epidermal cyst; Z85.820 Personal history of malignant melanoma of skin; Z85.828 Personal history of other malignant neoplasm of skin | CPT/HCPCS: 11102; 17000; 99203 ==

== ENCOUNTER → 2023-11-09 10:00 | Outpatient (BNVA) | payer MEDICARE, SELFPAY | PROVIDERS: PCP Family Medicine; Visit Provider Orthopaedic Surgery | DX: Z98.890 Other specified postprocedural states (principal) | CPT/HCPCS: 99024 ==

== ENCOUNTER → 2023-11-14 13:30 | Outpatient (BNVA) | payer MEDICARE, SELFPAY | PROVIDERS: PCP Family Medicine; Visit Provider Student in an Organized Health Care Education/Training Program | DX: T81.49XA Infection following a procedure, other surgical site, initial encounter (principal); X58.XXXA Exposure to other specified factors, initial encounter | CPT/HCPCS: 99205 ==

== ENCOUNTER → 2023-11-30 09:54 | Outpatient (BNVA) | payer MEDICARE, SELFPAY | PROVIDERS: Visit Provider Dermatology | DX: C43.61 Malignant melanoma of right upper limb, including shoulder (principal); C44.91 Basal cell carcinoma of skin, unspecified; L57.0 Actinic keratosis; L56.5 Disseminated superficial actinic porokeratosis (DSAP); L82.1 Other seborrheic keratosis; D22.5 Melanocytic nevi of trunk | CPT/HCPCS: 11604; 12034; 17000; 99214 ==

== ENCOUNTER → 2023-12-18 12:52 | Outpatient (BNVA) | payer MEDICARE, SELFPAY | PROVIDERS: Visit Provider Dermatology | DX: Z48.02 Encounter for removal of sutures (principal) | CPT/HCPCS: 99212 ==

== ENCOUNTER → 2023-12-21 08:30 | Outpatient (BNVA) | payer MEDICARE, SELFPAY | PROVIDERS: Visit Provider Orthopaedic Surgery | DX: Z98.890 Other specified postprocedural states (principal) | CPT/HCPCS: 99213 ==

== ENCOUNTER → 2023-12-28 07:38 | Outpatient (BNVA) | payer MEDICARE, SELFPAY | DX: J02.9 Acute pharyngitis, unspecified (principal) | CPT/HCPCS: 87426 ==

== ENCOUNTER → 2024-01-09 09:37 | Outpatient (BNVA) | payer MEDICARE, SELFPAY | PROVIDERS: Visit Provider Dermatology | DX: C44.519 Basal cell carcinoma of skin of other part of trunk (principal); L57.0 Actinic keratosis | CPT/HCPCS: 13101; 17000; 17313 ==

== ENCOUNTER → 2024-07-18 12:07 | Outpatient (BNVA) | payer MEDICARE, SELFPAY | PROVIDERS: PCP Family Medicine; Visit Provider Physician Assistant | DX: J02.9 Acute pharyngitis, unspecified (principal) | CPT/HCPCS: 87880 ==

== ENCOUNTER → 2024-07-23 15:45 | Outpatient (BNVA) | payer MEDICARE, SELFPAY | PROVIDERS: PCP Family Medicine; Visit Provider Orthopaedic Surgery | DX: M48.062 Spinal stenosis, lumbar region with neurogenic claudication (principal) | CPT/HCPCS: 72100; 99213 ==

== ENCOUNTER → 2024-08-02 09:20 | Outpatient (BNVA) | payer MEDICARE, SELFPAY | PROVIDERS: PCP Family Medicine; Visit Provider Family Medicine | DX: E11.9 Type 2 diabetes mellitus without complications (principal) | CPT/HCPCS: 80053; 83036; 85025 ==

== ENCOUNTER 2024-08-09 08:39 | Outpatient (CLI) | payer MEDICARE, SELFPAY ==
--- NOTE | 2024-08-09 08:45 | MR_ITS ---
WS: [id number] MRI LUMBAR SPINE NONCONTRAST HISTORY: Back pain down LEFT leg to foot. History of prior back surgeries. COMPARISON: 09/07/2023 TECHNIQUE: Sagittal and axial multisequence imaging is submitted. Degenerative disc disease at C5-6. Increase in thoracic kyphosis. Mild anterior wedging of T7. Small central T6-7 disc protrusion contacts the thoracic cord. 2 mm retrolisthesis of L2. L3 and L4 anterolisthesis by 2 mm. Advanced degenerative disc disease with disc space narrowing at L2-3. The remaining discs are moderately desiccated. No acute fracture. Very small amount of edema in the L2 and L3 endplates. Conus terminates normally at L1-2 disc level. Postoperative laminectomy defects at L3-4 and L4-5. Improving postoperative fluid collections most likely seromas at the surgical site. L1-L2: Mild diffuse annular disc bulging with facet arthritis. Minimal subarticular recess encroachment. L2-L3: Osteophytic ridging with disc bulging and facet arthritis. Mild central and subarticular recess stenosis. Minimal foraminal encroachment. L3-L4: Diffuse annular disc bulging with marked ligamentum flavum and facet arthritis. Fluid in the facet joints. Mild subarticular recess encroachment upon the traversing L4 nerve roots. Mild disc encroachment into the RIGHT foramen. No interval change or high-grade stenosis. Posterior laminectomy defect. L4-L5: Annular disc bulging with ligamentum flavum and facet arthritis. Fluid in the facet joints. Large laminectomy defect. Mild disc contact on the traversing L5 nerve roots. RIGHT foraminal stenosis with contact on the exiting RIGHT L4 nerve root. L5-S1: Diffuse annular disc bulging with mild disc encroachment upon the S1 nerve roots. Mild subarticular recess and foraminal stenosis. Paravertebral soft tissues are negative. MR/MR lumbar spine wo con* [id number] IMPRESSION: 1. Decompression laminectomies at L3-4 and L4-5 similar to the prior study. Im proving postoperative fluid at the laminectomy sites. 2. No high-grade central or foraminal stenosis. 3. Mild central, subarticular recess and foraminal stenosis at L2-3. 4. L3-4: Mild subarticular recess encroachment by disc osteophyte disease on t he L4 traversing nerve roots. 5. L4-5: Very mild disc contact on the traversing L5 nerve roots with mild RIG HT foraminal stenosis. 6. Minimal disc encroachment upon the S1 nerve roots. Mild subarticular recess and foraminal stenosis.
== END 2024-08-09 08:40 | disposition home or self-care (01) ==
LOC: RAD 08:39
PROVIDERS: PCP Family Medicine; Visit Provider Orthopaedic Surgery
DX: M48.061 Spinal stenosis, lumbar region without neurogenic claudication (principal); Z98.890 Other specified postprocedural states; M25.78 Osteophyte, vertebrae; R93.7 Abnormal findings on diagnostic imaging of other parts of musculoskeletal system; M50.322 Other cervical disc degeneration at C5-C6 level; M48.54XA Collapsed vertebra, not elsewhere classified, thoracic region, initial encounter for fracture; M51.24 Other intervertebral disc displacement, thoracic region; M43.16 Spondylolisthesis, lumbar region; M51.369 Other intervertebral disc degeneration, lumbar region without mention of lumbar back pain or lower extremity pain; M96.89 Other intraoperative and postprocedural complications and disorders of the musculoskeletal system; M47.896 Other spondylosis, lumbar region; M24.28 Disorder of ligament, vertebrae; M51.379 Other intervertebral disc degeneration, lumbosacral region without mention of lumbar back pain or lower extremity pain; M48.07 Spinal stenosis, lumbosacral region
CPT/HCPCS: 72148

== ENCOUNTER → 2024-08-21 09:12 | Outpatient (BNVA) | payer MEDICARE, OTHER, SELFPAY | PROVIDERS: PCP Family Medicine; Visit Provider Nurse Practitioner Family | DX: L20.9 Atopic dermatitis, unspecified (principal); L57.8 Other skin changes due to chronic exposure to nonionizing radiation; X32.XXXA Exposure to sunlight, initial encounter; L81.4 Other melanin hyperpigmentation; L82.1 Other seborrheic keratosis; Z85.820 Personal history of malignant melanoma of skin; Z08 Encounter for follow-up examination after completed treatment for malignant neoplasm; Z85.828 Personal history of other malignant neoplasm of skin; D48.5 Neoplasm of uncertain behavior of skin; L57.0 Actinic keratosis | CPT/HCPCS: 11104; 11105; 17000; 99214 ==

== ENCOUNTER → 2024-08-22 13:24 | Outpatient (BNVA) | payer MEDICARE, OTHER, SELFPAY | PROVIDERS: PCP Family Medicine; Visit Provider Orthopaedic Surgery | DX: M48.062 Spinal stenosis, lumbar region with neurogenic claudication (principal) | CPT/HCPCS: 99213 ==

== ENCOUNTER → 2024-08-27 09:15 | Outpatient (BNVA) | payer MEDICARE, OTHER, SELFPAY | PROVIDERS: PCP Family Medicine; Visit Provider Anesthesiology Pain Medicine | DX: M48.062 Spinal stenosis, lumbar region with neurogenic claudication (principal); M54.42 Lumbago with sciatica, left side; Z98.890 Other specified postprocedural states; M47.816 Spondylosis without myelopathy or radiculopathy, lumbar region | CPT/HCPCS: 99204 ==

== ENCOUNTER → 2024-09-04 10:39 | Outpatient (BNVA) | payer MEDICARE, OTHER, SELFPAY | PROVIDERS: PCP Family Medicine; Visit Provider Surgery | DX: R19.7 Diarrhea, unspecified (principal); R19.4 Change in bowel habit; K21.9 Gastro-esophageal reflux disease without esophagitis | CPT/HCPCS: 99203 ==

== ENCOUNTER 2024-11-27 20:00 | Outpatient (CLI) | payer MEDICARE, SELFPAY | END 2024-11-27 20:01 | disposition home or self-care (01) | LOC: SLEEP 23:09 | PROVIDERS: PCP Family Medicine; Visit Provider Internal Medicine Pulmonary Disease | DX: G47.33 Obstructive sleep apnea (adult) (pediatric) (principal); G47.36 Sleep related hypoventilation in conditions classified elsewhere | CPT/HCPCS: 95810 ==

== ENCOUNTER 2025-01-02 11:41 | Outpatient (CLI) | payer MEDICARE, SELFPAY ==
--- NOTE | 2025-01-02 11:45 | XRR_ITS ---
PROCEDURE INFORMATION: Exam: XR Right Knee Exam date and time: 01/02/2025 11:59 AM Age: 69 years old Clinical indication: Injury or trauma; Other: Extending & pushing w/ knee; Other: Hyperextension; Additional info: Acute right medial knee pain TECHNIQUE: Imaging protocol: Radiologic exam of the right knee. Views: 3 views. COMPARISON: MR knee RT wo con* [id number] 12/26/2018 4:45 PM FINDINGS: Bones/joints: Mild medial compartment narrowing. Moderate tricompartment spurring. No fracture or dislocation. No acute osseous or joint abnormality. Soft tissues: Normal. XR/XR knee RT 3V* [id number] IMPRESSION: Mild degenerative changes.
== END 2025-01-02 11:42 | disposition home or self-care (01) ==
PROVIDERS: PCP Family Medicine; Visit Provider Family Medicine
DX: M25.561 Pain in right knee (principal); E11.9 Type 2 diabetes mellitus without complications; S40.861A Insect bite (nonvenomous) of right upper arm, initial encounter; W57.XXXA Bitten or stung by nonvenomous insect and other nonvenomous arthropods, initial encounter
CPT/HCPCS: 73562; 80053; 80061; 82043; 83036; 86618; 86666; 86757

== ENCOUNTER 2025-01-17 08:29 | Outpatient (RCR) | payer MEDICARE, SELFPAY | END 2025-02-11 23:59 | disposition home or self-care (01) | LOC: SPT 08:29 | PROVIDERS: PCP Family Medicine; Visit Provider Family Medicine | DX: M25.561 Pain in right knee (principal) | CPT/HCPCS: 97033; 97110; 97161 ==

== ENCOUNTER → 2025-03-03 14:52 | Outpatient (BNVA) | payer MEDICARE, SELFPAY | PROVIDERS: PCP Family Medicine; Visit Provider Family Medicine | DX: K92.1 Melena (principal); Z13.6 Encounter for screening for cardiovascular disorders | CPT/HCPCS: 82270; 85025 ==

== ENCOUNTER 2025-03-04 13:38 | Outpatient (CLI) | payer MEDICARE, SELFPAY ==
--- NOTE | 2025-03-04 13:45 | MR_ITS ---
WS: [id number] MRI RIGHT KNEE HISTORY: acute medial right knee pain COMPARISON: Radiograph 08/02/2024, prior MRI 12/26/2018 Anterior cruciate ligament: Increased T2 signal but no tear. Mild mucoid degeneration. Posterior cruciate ligament: Intrasubstance degeneration of the PCL. Degeneration has progressed since 2019. Medial collateral ligament: Displacement of the MCL from the joint line by an extruded meniscus. No tear. Posterior lateral corner structures: Intact. Medial menisci: Abnormal shape of the posterior horn. Abnormal signal continues into the meniscal root as noted on the prior study from a chronic tear. There is mild blunting of the free edge. There is a tear extending from the free edge posteriorly towards the meniscal root. Anterior horn is intact. Lateral meniscus: Intact. Normal signal, size and shape. Extensor mechanism: Distal quadriceps tendon and patellar tendons are intact. Fluid and soft tissue: Small suprapatellar joint effusion. No Espinoza's cyst. Osseous and articular structures: Patellofemoral compartment: Mild to moderate narrowing of the patellofemoral joint space. Mild diffuse chondromalacia. Small amount of subchondral edema in the lateral patellar facet. Medial compartment: Severe narrowing of the medial compartment. Complete loss of cartilage. There is near bone upon bone with marginal osteophytes and a small amount of edema. Lateral compartment: Moderate narrowing of the lateral compartment. Moderate diffuse chondromalacia. Progression of chondromalacia. Full-thickness defect along the weightbearing surface of the femoral condyle. Small amount of edema at the base of the tibial spines. MR/MR knee RT wo con* [id number] IMPRESSION: 1. No ACL tear. 2. Abnormal shape posterior horn medial meniscus. There is a tear extending fr om the free edge of the posterior horn into the meniscal root. Partial extrusio n of the meniscus from the joint line. Similar to the prior study of 12/26/2018. 3. Moderate to severe narrowing the patellofemoral joint with mild diffuse cho ndromalacia. 4. Severe narrowing of the medial compartment with complete loss of cartilage, progressed since the prior study. 5. Moderate narrowing lateral compartment with moderate chondromalacia.
== END 2025-03-04 13:39 | disposition home or self-care (01) ==
LOC: RAD 13:40
PROVIDERS: PCP Family Medicine; Visit Provider Family Medicine
DX: S83.241A Other tear of medial meniscus, current injury, right knee, initial encounter (principal); X58.XXXA Exposure to other specified factors, initial encounter; M22.41 Chondromalacia patellae, right knee; M25.761 Osteophyte, right knee; R93.6 Abnormal findings on diagnostic imaging of limbs
CPT/HCPCS: 73721

== ENCOUNTER 2025-03-19 10:57 | Outpatient (CLI) | payer MEDICARE, SELFPAY ==
--- NOTE | 2025-03-19 11:40 | MM_ITS ---
WS: [id number] BILATERAL SCREENING DIGITAL BREAST MAMMOGRAPHY WITH VALERIA DISPLACEMENT VIEWS. CAD PERFORMED. HISTORY: screening COMPARISON: 09/21/2020, 06/06/2018 Bilateral craniocaudal and mediolateral oblique views are performed with tomosynthesis and SM. Valeria displacement views in CC and MLO projection also performed. Breasts composition: The breasts are heterogeneously dense, which may obscure small masses. Retropectoral implants are intact. No capsular contraction. Extensive bilateral rodlike calcifications within each breast. Scattered fibroglandular asymmetries within each breast. No distortion. MM/MM scr BI tomosynthesis [id number] IMPRESSION: BI-RADS: 2 - Benign FOLLOW-UP: 1 Year Follow-up
== END 2025-03-19 10:58 | disposition home or self-care (01) ==
LOC: RAD 10:58
PROVIDERS: PCP Family Medicine; Visit Provider Family Medicine
DX: Z12.31 Encounter for screening mammogram for malignant neoplasm of breast (principal); R92.333 Mammographic heterogeneous density, bilateral breasts; R92.1 Mammographic calcification found on diagnostic imaging of breast; R92.323 Mammographic fibroglandular density, bilateral breasts; Z98.82 Breast implant status; R03.0 Elevated blood-pressure reading, without diagnosis of hypertension; R19.8 Other specified symptoms and signs involving the digestive system and abdomen; K92.1 Melena
CPT/HCPCS: 77063; 77067; 99214

== ENCOUNTER → 2025-03-20 10:36 | Outpatient (BNVA) | payer MEDICARE, SELFPAY | PROVIDERS: PCP Family Medicine; Visit Provider Nurse Practitioner Family | DX: L81.4 Other melanin hyperpigmentation (principal); L82.1 Other seborrheic keratosis; D18.01 Hemangioma of skin and subcutaneous tissue; Z85.820 Personal history of malignant melanoma of skin; Z08 Encounter for follow-up examination after completed treatment for malignant neoplasm; Z85.828 Personal history of other malignant neoplasm of skin; D48.5 Neoplasm of uncertain behavior of skin; L57.0 Actinic keratosis | CPT/HCPCS: 11102; 17000; 99213 ==

== ENCOUNTER → 2025-04-01 15:22 | Outpatient (BNVA) | payer MEDICARE, SELFPAY | PROVIDERS: PCP Family Medicine; Referring Provider Family Medicine; Visit Provider Student in an Organized Health Care Education/Training Program | DX: M17.11 Unilateral primary osteoarthritis, right knee (principal); M23.306 Other meniscus derangements, unspecified meniscus, right knee | CPT/HCPCS: 73560; 73565; 99203 ==

== ENCOUNTER 2025-04-17 09:11 | Day surgery (SDC) | payer MEDICARE, SELFPAY ==
[2025-04-17 09:36] VITALS: BP 137/91; PULSE 86; RESP 18; TEMP 36.1; O2SAT 96; BMI 32.6
--- NOTE | 2025-04-17 09:50 | W.PM.OPSUD ---
Surgery/Procedure H&P Update DATE OF PROCEDURE: April 17, 2025 DATE H&P PERFORMED: 03/19/25 H&P UPDATE INFORMATION: I have reviewed H&P completed within last 30 days, I have examined patient prior to procedure, No changes to prior documentation, H&P is in [facility] EMR on date indicated and Risks and benefits of the procedure reviewed PLANNED PROCEDURE: Operation Date: 04/17/25 10:50 Proposed Procedures p EGD EGD with Biopsy [id number] G0105 R19.8 R10.9(Not Applicable) - Brennan Shaikh MD s Colonoscopy(Not Applicable) - Brennan Shaikh MD
--- NOTE | 2025-04-17 09:58 | ANES.PREANE2 ---
Pre-Anesthetic Assessment Height/Weight: Height 1.73 m Weight 97.522 kg Temp Pulse Resp BP Pulse Ox O2 Del Method 97 F L 86 18 137/91 96 Room Air 04/17/25 09:36 04/17/25 09:36 04/17/25 09:36 04/17/25 09:36 04/17/25 09:36 04/17/25 09:36 Preop Diagnosis: Abd. pain, screen Operation Date: 04/17/25 10:50 Proposed Procedures p EGD EGD with Biopsy [id number] G0105 R19.8 R10.9(Not Applicable) - Brennan Shaikh MD s Colonoscopy(Not Applicable) - Brennan Shaikh MD Familial anesthetic complications: none Was Beta Javi taken within 24 hours: N/A Was Clonidine taken within 24 hours: N/A Last intake: Intake Last Liquid Date 04/16/25 Last Liquid Time 22:00 Last Solid Date 04/15/25 Last Solid Time 19:30 Social No alcohol and No tobacco Exam alert, oriented x 3, clear to auscultation bilaterally and regular rate & rhythm Airway Cervical ROM: within normal limits Mallampati: Class II Dentition: full Pulmonary Asthma and Sleep Apnea CV/HEM Hypertension (Amlodipine, losartan) None reported Hepatic None reported GI Gastroesophageal Reflux Disease Metabolic Diabetes Mellitus, Hyperlipidemia and Morbid Obesity Musc/skel Osteoarthritis/DJD Neuropsych Depression Anesthetic Plan ASA status: 3 Anesthesia: MAC Risk of > 500 ml blood loss (7ml/kg in children): No Medications/Allergies Home Medications ?Medication ?Instructions ?Recorded ?Confirmed ?Last Taken ?Type CPAP mask, tubing and supplies #1 ea 06/16/22 04/01/25 08/03/23 Rx one touch verio flex test strips #100 ea 09/22/22 04/01/25 08/03/23 Rx blood-glucose meter #1 ea 03/23/23 04/01/25 08/03/23 Rx blood sugar diagnostic (CareTouch #300 ea 03/24/23 04/01/25 08/03/23 Rx Test Strip) levocetirizine 5 mg tablet (Xyzal) 5 mg PO QPM #90 tabs 01/12/24 04/14/25 04/16/25 Rx montelukast 10 mg tablet 10 mg PO DAILY #90 tabs 01/12/24 04/14/25 04/16/25 Rx nitroglycerin 0.4 mg sublingual 0.4 mg sublingual Q5M PRN Chest 01/12/24 04/14/25 Unknown Rx tablet (Nitrostat) Pain #20 tabs pantoprazole 40 mg tablet,delayed 40 mg PO BID 6 weeks #84 tabs 09/06/24 04/14/25 04/16/25 Rx release (Protonix) empagliflozin 25 mg tablet 25 mg PO DAILY #90 tabs 11/04/24 04/14/25 04/16/25 Rx chlorthalidone 25 mg tablet 25 mg PO QPM #90 tabs 01/02/25 04/14/25 04/16/25 Rx hinged knee brace #1 ea 01/02/25 04/01/25 Unknown Rx losartan 50 mg tablet 50 mg PO BID #180 tabs 01/02/25 04/14/25 04/16/25 Rx estradiol 2 mg tablet 2 mg PO QPM #90 tabs 02/19/25 04/14/25 04/16/25 Rx tramadol 50 mg tablet 50 mg PO BID PRN pain 30 days #60 02/26/25 04/14/25 Unknown Rx tabs dicyclomine 10 mg capsule 10 mg PO Q6H PRN CRAMPING 30 days 03/18/25 04/14/25 04/16/25 Rx #120 caps ondansetron 8 mg disintegrating 8 mg PO Q8H PRN nausea and 03/19/25 04/14/25 Unknown Rx tablet vomiting #3 tabs blood sugar diagnostic (KartelaTouch #100 strips 03/20/25 04/01/25 Unknown Rx Verio test strips) lancets 30 gauge (KartelaTouch Delica #100 ea 03/20/25 04/01/25 Unknown Rx Plus Lancet) amlodipine 5 mg tablet 5 mg PO QPM 04/14/25 04/14/25 04/16/25 History atorvastatin 80 mg tablet 80 mg PO DAILY 04/14/25 04/14/25 04/16/25 History meloxicam 15 mg tablet 15 mg PO DAILY 04/14/25 04/14/25 04/16/25 History Allergies Allergy/AdvReac Type Severity Reaction Status Date / Time latex Allergy Intermediate rash Verified 04/14/25 11:50 vancomycin Allergy Intermediate rash Verified 04/14/25 11:50 Anesthetics - Amide Type - Allergy ALGY-Rash Verified 04/14/25 11:50 [facility] - Catherine Type- Allergy ALGY-Rash Verified 04/14/25 11:50 Parabens cortisone Allergy shortness Verified 04/14/25 11:50 of breath Iodinated Contrast Media Allergy ADR-Seizure Verified 04/14/25 11:50 [facility] Anesthesia Medical History (Updated 04/05/25 @ 13:00 by Олег Gonzales DO) Wound infection after surgery Melanoma Basal cell carcinoma COVID-19 Aftercare following surgery of the genitourinary system History of COVID-19 Bile reflux gastritis Type 2 diabetes mellitus without complication, without long-term current use of insulin Gastroesophageal reflux disease without esophagitis Mixed hyperlipidemia Essential hypertension Depression Surgical History History of suburethral sling procedure 05/05/2021- SIS, posterior colporrhaphy performed by Dr. Maravilla at [facility] History of total abdominal hysterectomy and bilateral salpingo-oophorectomy (~2000) performed in [place]; due to fibroid Status post colonoscopy (~03/2020) Diverticulosis sigmoid colon H/O esophagogastroduodenoscopy (~03/2020) S/p bilateral carpal tunnel release S/P appendectomy S/P cholecystectomy S/P discectomy lumbar Status post total knee replacement, left S/P breast augmentation (~2002) saline Family History Family/Other Thyroid disease Maternal Aunt Cancer prostate Family/Other Thyroid disease Paternal Niece Mother Heart disease Atrial fibrillation Diabetes Brother Atrial fibrillation Hypertension Cancer throat and tongue Father Cancer Lung CA Other CAD (coronary artery disease) Stroke Denies family history of Colon cancer Ovarian cancer Hypercholesteremia Anesthesia complication Bleeding disorder Social History Smoking and tobacco/nicotine status: never used tobacco/nicotine Alcohol intake: current Alcohol intake frequency: holidays/special occasions only Substance/Drug Use: never
[2025-04-17 11:02] VITALS: BP 156/109; PULSE 93; RESP 18; TEMP 36.1; O2SAT 97
[2025-04-17 11:36] VITALS: BP 134/83; PULSE 83; RESP 16; O2SAT 97
--- NOTE | 2025-04-17 15:31 | ANE.PACU2 ---
Inpatient post-anesthesia follow up: Airway intact: Yes Vital signs: Temperature 97.0 F Pulse Rate 83 Respiratory Rate 16 Blood Pressure 134/83 Pulse Oximetry 97 Oxygen Delivery Me thod Room Air Oxygen Flow Rate Fraction of Inspir ed Oxygen Hydration adequate: Yes Nausea and vomiting: No Pain level: 1 Mental status: Baseline
== END 2025-04-17 11:41 | disposition home or self-care (01) ==
PROVIDERS: PCP Family Medicine; Visit Provider Surgery
PROC: 0DJ08ZZ Inspection of Upper Intestinal Tract, Via Natural or Artificial Opening Endoscopic (ICD-10-PCS; principal; 2025-04-17 10:50)
PROC: 0DJD8ZZ Inspection of Lower Intestinal Tract, Via Natural or Artificial Opening Endoscopic (ICD-10-PCS; CPT 45378; 2025-04-17 10:50)
DX: R19.8 Other specified symptoms and signs involving the digestive system and abdomen (principal); K92.1 Melena; K57.30 Diverticulosis of large intestine without perforation or abscess without bleeding; K63.5 Polyp of colon; R10.9 Unspecified abdominal pain; K29.50 Unspecified chronic gastritis without bleeding; K21.00 Gastro-esophageal reflux disease with esophagitis, without bleeding; K21.9 Gastro-esophageal reflux disease without esophagitis; E11.9 Type 2 diabetes mellitus without complications; E66.01 Morbid (severe) obesity due to excess calories; Z68.32 Body mass index [BMI] 32.0-32.9, adult; F32.A Depression, unspecified; G47.30 Sleep apnea, unspecified; Z99.89 Dependence on other enabling machines and devices; J45.909 Unspecified asthma, uncomplicated; I10 Essential (primary) hypertension; E78.2 Mixed hyperlipidemia; Z80.42 Family history of malignant neoplasm of prostate; Z80.8 Family history of malignant neoplasm of other organs or systems; Z80.1 Family history of malignant neoplasm of trachea, bronchus and lung
CPT/HCPCS: 36416; 43239; 45380; 45385; 82962; 88305; 88342; J2704; J7030

== ENCOUNTER → 2025-04-30 09:35 | Outpatient (BNVA) | payer MEDICARE, SELFPAY | PROVIDERS: PCP Family Medicine; Visit Provider Surgery | DX: Z51.89 Encounter for other specified aftercare (principal) | CPT/HCPCS: 99213 ==